=== PATIENT | female | born 1975 | race Caucasian/White ===

== ENCOUNTER → 2020-07-03 14:18 | Outpatient (BNVA) | payer MEDICARE, MEDICAID, SELFPAY | PROVIDERS: Family Provider Family Medicine; PCP Family Medicine; Visit Provider Internal Medicine Critical Care Medicine | DX: Z01.812 Encounter for preprocedural laboratory examination (principal); R91.1 Solitary pulmonary nodule | CPT/HCPCS: 87635 ==

== ENCOUNTER 2020-07-06 05:37 | Day surgery (SDC) | payer MEDICARE, MEDICAID, SELFPAY ==
[2020-07-03 13:22] VITALS: BMI 25.7
[2020-07-06] VITALS (9 sets, daily range): BP systolic 108–141; BP diastolic 74–97; PULSE 88–97; RESP 16–24; TEMP 36.1–37.5; O2SAT 93–98
[2020-07-06] MEDS: sodium chloride 0.9% 1,000 ML 30 ML IV (06:22)
--- NOTE | 2020-07-06 06:37 | W.PM.OPSUD ---
Surgery/Procedure H&P Update DATE OF PROCEDURE: July 06, 2020 DATE H&P PERFORMED: 06/28/20 H&P UPDATE INFORMATION: I have reviewed H&P completed within last 30 days, I have examined patient prior to procedure and No changes to prior documentation PREOP DIAGNOSIS: Lung cancer PLANNED PROCEDURE: Bronchoscopy with inspection of the airway, possible endobronchial biopsy, bronchoalveolar lavage, Cytobrush, endobronchial sound guided transbronchial needle aspiration of lymph nodes and control of bleeding. Operation Date: 07/06/20 07:00 Proposed Procedures p Ebus [id number] R06.02(Not Applicable) - Isauro Delgado MD s Bronchoscopy(Not Applicable) - Isauro Delgado MD
--- NOTE | 2020-07-06 06:48 | ANES.PREANE2 ---
Pre-Anesthetic Assessment Pre-Anesthetic Assessment: Height/Weight: Height 1.68 m Weight 72.121 kg Temp Pulse Resp BP Pulse Ox 99.5 F 88 18 126/74 96 07/06/20 06:08 07/06/20 06:08 07/06/20 06:08 07/06/20 06:08 07/06/20 06:08 Preop Diagnosis: Lung cancer Proposed Procedure: Operation Date: 07/06/20 07:00 Proposed Procedures p Ebus [id number] R06.02(Not Applicable) - Isauro Delgado MD s Bronchoscopy(Not Applicable) - Isauro Delgado MD Was Beta Rodriguez taken within 24 hours: N/A Last intake: Intake Last Liquid Date 07/05/20 Last Liquid Time 22:30 Last Solid Date 07/05/20 Last Solid Time 16:00 Social: Social History: Tobacco and No alcohol Exam: Pre-Anes Outpt Exam: alert, oriented x 3 and regular rate & rhythm Airway: Submandibular: WNL Cervical ROM: WNL MP: 2 Dentition: False Pulmonary: Pulmonary: COPD, Cough and SOB Comments: Lung mass CV/HEM: CV/HEM: CHF (Per patient, no pedal edema) Anesthetic Plan: ASA status: 3 Anesthesia: General Risk of > 500 ml blood loss (7ml/kg in children): No Meds/Allergies Current Medications: Current Medications Generic Name Dose Route Start Last Admin Trade Name Freq PRN Reason Stop Dose Admin Sodium Chloride 1,000 mls @ 30 ml s/hr 07/06/20 06:15 07/06/20 06:22 Sodium Chloride 0.9% IV 07/07/20 06:14 30 mls/hr .Q24H PERLA Administration PFSH Anesthesia PFSH: Medical History (Updated 07/03/20 @ 14:10 by Tara Mcgovern LPN) History of ovarian cancer Hyperlipidemia Palpitation Shortness of breath Surgical History (Updated 06/28/20 @ 14:57 by Isauro Delgado MD) S/P appendectomy S/P cholecystectomy S/P hysterectomy S/P oophorectomy S/P shoulder replacement Right Family History Other Diabetes Social History Smoking and tobacco status: current every day smoker cigarettes Years cigarettes smoked: 30 [ Other cigarette details: 1 PPD x 25 Years ] Quit status (tobacco): considering quitting Second hand smoke exposure: Yes Smoking risk assessment/counseling performed?: Yes Alcohol intake: never Counseling given: No Counseling given: No Lives independently: Yes Household members: significant other and family Marital status: / Current occupational status: disabled History of recent travel: No Current gender identity: Female Data Anesthesia Cardiac Studies: No Data to Display
[2020-07-06] MEDS: lidocaine 1% INJ 20 mL XX (07:15)
--- NOTE | 2020-07-06 07:47 | P.OP_ITS ---
Operative Report Date of procedure: July 06, 2020 Pre-op Diagnosis: Lung cancer Post-op diagnosis: same Brief History: This is a 44-year-old lady coming in for bronchoscopic evaluation for suspected lung cancer. Procedure: Name of the procedure: Bronchoscopy with inspection of the airway, bronchoalveolar lavage, endobronchial biopsies, endobronchial ultrasound-guided transbronchial needle aspiration of lymph nodes and control of bleeding. Indication: Suspected lung cancer Anesthesia: General anesthesia. Local anesthesia: The vocal cords, trachea, jaswant in the right and left mainst em bronchi were anesthetized with 1% lidocaine, 7 mL. Description of the procedure: The procedure was explained to the patient and the consent was obtained. The patient was brought to the Endo suite. The patient underwent laryngeal mask airway placement for general anesthesia. Following induction of general anesthesia, the bronchoscope was advanced through the LMA. The vocal cords were normal. The vocal cords were anesthetized with 1% lidocaine, 3 mL lidocaine was used. The upper and lower trachea appeared to be erythematous, narrow with evidence of extrinsic compression on the right side, no endotracheal lesion was seen. The jaswant was splayed. The jaswant, the right and left mainstem bronchi are anesthetized with 1% lidocaine. In a systematic manner bilateral bronchial tree was then examined. The bronchoscope was advanced into the left mainstem bronchus. The left upper lobe, lingula and left lower lobe bronchi were examined up to the third subsegmental level and no abnormalities were identified. There is no endobronchial lesion, active bleeding or mucous plug. The bronchoscope was then introduced into the right mainstem bronchus. There was distortion and narrowing and mucosal irregularity at the entrance of the right upper lobe bronchus. The bronchus intermedius appeared narrowed with mucosal abnormalities as well. The entrance to the right middle lobe bronchus and right lower lobe segmental bronchi were all narrowed. Endobronchial biopsies were obtained from the right upper lobe bronchus. Multiple samples were obtained. Bronchoalveolar lavage was obtained from the right upper lobe. The endobronchial ultrasound was introduced through the LMA. Significant mediastinal and hilar lymphadenopathy was identified with the ultrasound. Fine- needle aspirations were performed from the right paratracheal, 4R mass. Samples: 1. Bronchoalveolar lavage specimen was sent for cytology. 2. The endobronchial biopsies are sent for histopathology. 3. The transbronchial needle aspiration of the aforementioned lymph node groups were sent for histopathology. Complications: Postprocedure the patient was noted to have lower tracheal bleed. This was controlled with cold saline. At the end of the procedure there was no active bleeding.
--- NOTE | 2020-07-06 08:29 | SUR.PHASEI ---
0822 PT TO OPS PER CART PT AWAKE ALERT C/O OF HEAD ACHE , PT STATES (IT IS A CAFFIENE HEADACHE) PT OK WITH DRINKING SOME COKE FOR HEADACHE, VSS PT NOT COUGHING, AWAKE ALERT VERBALIZED APPROP HANDOFF AT BEDSIDE TO OPS NURSE.
--- NOTE | 2020-07-06 08:49 | ANE.PACU2 ---
Inpatient post-anesthesia follow up: Airway intact: Yes Vital signs: Temperature 97.5 F Pulse Rate 93 Respiratory Rate 18 Blood Pressure 119/90 Pulse Oximetry 93 Oxygen Delivery Me thod Room Air Oxygen Flow Rate Fraction of Inspir ed Oxygen Hydration adequate: Yes Nausea and vomiting: No Pain level: 1 Mental status: Baseline
--- NOTE | 2020-07-06 09:01 | SUR.PHASEII ---
PATIENT RE-EVALUATED BY DOCTOR MCKINLEY
[2020-07-12 10:49] LABS: PD-L1 (Clone 22C3) by IHC BBPL See Report
== END 2020-07-06 09:35 | disposition home or self-care (01) ==
PROVIDERS: PCP Family Medicine; Visit Provider Internal Medicine Critical Care Medicine
PROC: BB4BZZZ Ultrasonography of Pleura (ICD-10-PCS; principal; 2020-07-06 07:00)
PROC: 0BJ08ZZ Inspection of Tracheobronchial Tree, Via Natural or Artificial Opening Endoscopic (ICD-10-PCS; CPT 31622; 2020-07-06 07:00)
DX: C34.90 Malignant neoplasm of unspecified part of unspecified bronchus or lung (principal); J44.9 Chronic obstructive pulmonary disease, unspecified; I50.9 Heart failure, unspecified; Z85.43 Personal history of malignant neoplasm of ovary; E78.5 Hyperlipidemia, unspecified; F17.210 Nicotine dependence, cigarettes, uncomplicated; Z79.82 Long term (current) use of aspirin
CPT/HCPCS: 31624; 31627; 31628; 31652; 80500; 87070; 87205; 88112; 88305; 88342; 88368; 96360; 96361; J2250; J2704; J3010; J7030

== ENCOUNTER 2020-07-12 05:36 | Outpatient (RCR) | payer MEDICARE, MEDICAID, SELFPAY ==
--- NOTE | 2020-07-11 15:30 | ONC CON_ITS ---
Dr. Yanes New Patient Note Patient: Winsome Salgado Unit #: [id number]: 1975 Dicatated By: Lena Yanes M.D.Date of Visit: Jul 11, 2020 Onc MED New Patient/Consult Referring Physician: Dr. JACQUELYN MCCOLLUM M.D. History of Present Illness: Mrs Winsome Salgado, is a 44-year-old female with a history of abnormal chest x-ray which showed right middle lobe lung lesion for which she was referred to pulmonology for evaluation and she underwent CT scan of the chest on June 25, 2020 which showed extensive right upper lobe atelectasis/consolidation concerning for postobstructive pneumonia given the presence of spiculated 2.1 cm nodule within the right upper lobe. And extensive mediastinal and right hilar adenopathy worrisome for metastatic disease. Further evaluated with CT PET scan which was done on June 30, 2020 showed 2 x 1.8 cm right middle lobe nodule with SUV of 10.9, a 1.2 cm. Right hilar nodule has an SUV of 8. Other FDG positive nodules are obscured by right middle lobe infiltrate but are present in the right middle lobe. Malignant mediastinal adenopathy is present in the superior anterior mediastinum, right paratracheal, left paratracheal, subaortic, subcarinal, right paraesophageal territory. Multifocal osseous metastatic disease are present in the central sacrum, posterior element of T12. And index lesion in the central sacrum measured 1.3 cm with SUV of 7.6. In the right cervical level 4 territory, there is a 1.5 x 2.7 cm node has SUV of 11.4. An FDG positive cervical level 4 lymph node on July 06, 2020 she underwent bronchoscopy and transbronchial biopsy from right upper lobe showed non-small cell lung cancer, right endobronchial biopsy was positive for non-small cell cancer and station 4R lymph node positive for non-small cell carcinoma as per pathology he was consistent with invasive adenocarcinoma favor lung. Patient denies any history of hemoptysis, denies any dysphagia but complaining of off-and-on headaches and blurred vision which is progressive no focal weakness. Also complaining of lower back pain and right posterior lower rib pain, not being controlled with hydrocodone, denies any history of trauma to her lower back or hip or chest. Patient is also complaining of weight loss, she used to weigh 176 now down to 150 pounds because of poor appetite. Patient is a chronic smoker smoked about 1 to 2 pack a day but now cutting down. Denies any jaundice denies any night sweats denies any fever chills denies any shortness of breath or palpitation. Past Medical History: Ms. Salgado's medical history consists of history of ovarian cancer and hypertension. Past Surgical History: Ms. Nicholsons surgical/procedural history consists of appendectomy, cholecystectomy, hysterectomy/bilateral salpingectomy-oophorectomy - At age 16, had uterine cancer, and right shoulder replacement. Medications: ALPRAZolam 1 Tablet (of 0.5 mg) Oral q 12 hours PRN, Aspirin 81 1 Tablet (of 81 mg) Tablet, chewable Oral daily, Chantix 1 Tablet (of 1 mg) Oral daily, Cyclobenzaprine HCl 1 Tablet (of 10 mg) Oral q 8 hours PRN, Diclofenac Sodium 1 Tablet (of 75 mg) Tablet, enteric coated Oral b.i.d., HYDROcodone-Acetaminophen 1 Tablet (of 10-325 mg) Oral q 8 hours PRN, hydrOXYzine HCl 1 Tablet (of 25 mg) Oral q 8 hours PRN, Isosorbide Mononitrate ER 1 Tablet (of 60 mg) Tablet SR 24 HR Oral daily, Metoprolol Succinate ER 1 Tablet (of 25 mg) Tablet SR 24 HR Oral daily, Nitroglycerin (0.4 mg) Tablet, sublingual Sublingual Take as Directed, Sertraline HCl 1 Tablet (of 50 mg) Oral daily Allergies: Ibuprofen, Ketorolac Tromethamine, Levaquin, Morphine Sulfate, Nalbuphine HCl, Penicillins, Prochlorperazine Maleate, Ritalin, and SUMAtriptan Succinate. Social History: Ms. Salgado is . She is a daily smoker who has smoked 2.0 packs/day for 30 years. She has no history of drinking. She has indicated exposure to the following products: cigarettes. Family History: Ms. Salgado's mother is alive. Ms. Salgado's father at age 74: Lung Cancer. Ms. Salgado has 1 brother who is alive. She has 2 sisters: 2 alive. Review Of Symptoms: Review of Systems is not available for this patient. Vital Signs: Performed on Jul 11, 2020 11:15: 7, 2, 0.00, 0.00 sq.m, 98 %, 94 /min, 18 /min, 94/63 mm(hg), 97.2 F (LOW), and 159.8 lbs (HIGH). Performance Status: 0 - Fully active, able to carry on all predisease activities without restrictions. (ECOG) Physical Examination: ENMT - No mouth sores, no thrush, no jaundice, Respiratory - Lungs are clear to auscultation, Cardiovascular - Regular rate and rhythm of heart, Abdomen - Soft, bowel sounds present, Extremities - No visible edema or rash. Lab/Imaging: Most recent lab results are not available for this patient. Impression: Invasive adenocarcinoma per bronchoscopy done on July 06, 2020 shows right upper lobe endobronchial biopsy was positive for malignancy/non-small cell carcinoma station 4R lymph node positive for non-small cell carcinoma as per pathology histology features suggestive of invasive adenocarcinoma, favor lung CT PET scan done on June 30, 2020 showed FDG positive right middle lobe nodule, malignant satellite nodule in the medial right lung and right hilum, extensive malignant mediastinal adenopathy with extension into right and midline cervical node territories., multifocal osseous metastatic disease, in the central sacrum and posterior element of T12 History of chronic smoking, still active Weight loss due to poor appetite Plan: Discussed with patient regarding her disease status, CT PET scan finding and CT scan of chest findings , clinically, it appears patient has metastatic disease, as per pathology adenocarcinoma the lung is favored as bronchoscopy/biopsy is positive for non-small cell carcinoma involving right upper bronchus and station 4R lymph node and CT PET scan shows extensive mediastinal lymphadenopathy involving both the right and left paratracheal and even right paraesophageal lymph node territories. But no evidence of liver involvement or adrenal involvement. And other concern is, her off and on headaches and blurred vision could be due to narcotics or brain mets, at this point,we will consider MRI scan of the brain AYAKA if it shows brain mets then palliative therapy would be the goal and as, she is complaining of progressive lower back pain, somewhat controlled with hydrocodone, will consider referring her to radiation oncology for evaluation. If her MRI scan of brain come back negative, and CT PET scan findings which are somewhat unusual especially with cervical lymph node involvement especially midline cervical lymph node involvement, ? Second primary or metastasis and bone mets without involvement of liver or adrenal glands involvement, in that case , we will consider ultrasound-guided FNA of midline cervical lymph node to confirm metastasis. In the meantime we will request pathology to check PD-L1 status and molecular profiling including EGFR, ALK, ROS1, BRAF mutation and also order guardant 360 to identify targetable mutation. Patient will return to clinic after MRI scan of the brain if it shows metastatic disease, for further discussion otherwise return to clinic in 2 weeks for further discussion and planning. Signed By: Lena Yanes M.D. <<Signature on File>>
--- NOTE | 2020-07-12 10:58 | N.ONRAD NP_ITS ---
Radiation Oncology Consultation Patient Name: Winsome Salgado Date of : 1975 Date of Service: 07/12/2020 Attending Physician: Diogo Urban M.D. Winsome Salgado was seen in consultation this morning at the request of Davian Yanes M.D. for consideration of palliative radiotherapy for the management of her recently diagnosed non-small cell lung cancer. She was initially evaluated for chest pain. Chest radiography was noted to reveal a right middle lobe lung nodule. A CT scan ordered on June 25, 2020 chelated nodule with right upper lobe consolidation and bulky right hilar and mediastinal adenopathy. A PET CT (independently reviewed in [facility]) obtained on June 30, 2020 confirmed the right middle lobe nodule (SUV 10.9), hypermetabolic activity within the right hilum and mediastinum and multifocal metastatic disease in the sacrum, posterior elements of the 12th thoracic vertebral body, and FDG activity within the right cervical lymph node levels IV and . A bronchoscopy with biopsy performed on July 06, 2020 identified extrinsic compression of the right middle lobe bronchus and right lower lobe segmental bronchi. The pathology report (personally reviewed in [facility]) diagnosed and adenocarcinoma. An MRI of the brain has been requested on account of her complaint of diplopia. The patient is being evaluated for palliative radiotherapy to the pelvis due to significant pain. I discussed with Ms. Salgado the role for palliative radiotherapy. A biopsy will be requested of the sacral lesion to confirm metastatic disease if MR of the brain does not identify cerebral metastases. I will initiate extended release OxyContin for pain. I would recommend a 2-week course of radiation therapy. A CT scan will be acquired for radiotherapy planning prior to beginning treatment. The potential toxicities of pelvic radiotherapy were reviewed. The patient has verbalized understanding would like to proceed as recommended. Signed by: 07/12/2020 10:58:48 AMDr. Diogo Urban
== END 2020-07-25 23:59 | disposition home or self-care (01) ==
LOC: ONCMED 05:36
PROVIDERS: PCP Family Medicine; Visit Provider Radiology Radiation Oncology
DX: C34.11 Malignant neoplasm of upper lobe, right bronchus or lung (principal); C79.31 Secondary malignant neoplasm of brain; F17.210 Nicotine dependence, cigarettes, uncomplicated; R63.4 Abnormal weight loss; Z79.899 Other long term (current) drug therapy
CPT/HCPCS: 36415; 99205; 99215

== ENCOUNTER 2020-07-25 11:26 | Outpatient (CLI) | payer MEDICARE, MEDICAID, SELFPAY ==
--- NOTE | 2020-07-25 11:30 | MR_ITS ---
WS: [id number] MRI BRAIN WITH AND WITHOUT CONTRAST HISTORY: ADENOCARCINOMA OF Lung; blurry Vision; double VISION NEW SYMPTOM COMPARISON: None available. TECHNIQUE: Multiplanar imaging performed through the brain with MultiHance 15 ml's IV. No acute infarct. There are innumerable metastatic lesions within the brain. Majority of these lesion s range from 2-5 mm. The largest metastatic lesion in the parafalcine RIGHT occipital lobe measures 1 .5 x 1.4 cm with a large amount of surrounding edema and effacement of the sulci. This metastatic les ion extends over a length of 1.9 cm. At this time there is no midline shift but the edema does extend centrally to the midline. Metastatic lesions are identified within the RIGHT and LEFT lobes of the c erebellum measuring only 3 to 4 mm. There is also a small hemorrhagic component. No meningeal enhance ment is appreciated. There is no midline shift. No hydrocephalus. Paranasal sinuses: Mild mucoperiosteal thickening in the RIGHT maxillary sinus. No air-fluid levels. Mastoid air cells: Normal. Calvarium and scalp: Normal. MR/MR head wo/w con [id number] IMPRESSION: 1. Innumerable metastatic lesions throughout the brain involving the cerebellu m and cerebrum. 2. Largest metastatic mass is hemorrhagic measuring 1.5 x 1.4 x 1.9 cm in the RIGHT parafalcine occipital lobe. There is a large amount of surrounding edema causing effacement of the sulci but no midline shift. 3. The remaining metastatic site drain in size from 2-5 mm. 4. No ventriculomegaly.
[2020-07-25] MEDS: gadobenate dimeglumine 20 mL vial IV (12:48)
== END 2020-07-25 11:27 | disposition home or self-care (01) ==
LOC: RADSHAW 11:28
PROVIDERS: PCP Family Medicine; Visit Provider Internal Medicine Hematology & Oncology
DX: H53.2 Diplopia (principal); H53.8 Other visual disturbances; C34.90 Malignant neoplasm of unspecified part of unspecified bronchus or lung; D43.2 Neoplasm of uncertain behavior of brain, unspecified
CPT/HCPCS: 70553; A9577

== ENCOUNTER 2020-08-17 06:49 | Outpatient (RCR) | payer MEDICARE, MEDICAID, SELFPAY ==
--- NOTE | 2020-07-26 | CT_ITS ---
Radiation Therapy Planning CT images; total exam DLP: 369.54 mGy-cm MTDD
--- NOTE | 2020-07-30 15:38 | ONCRAD EPV_ITS ---
Radiation Oncology Follow-Up Note Patient Name: Winsome Salgado Date of : 1975 Date of Service: 07/30/2020 Attending Physician: Diogo Urban M.D. Winsome Salgado is a 44 year old white female recently diagnosed with non-small cell lung cancer (June 2020) and brain metastases. The patient has received 3 Gy of a prescribed 30 Morrissey with a 3-dimensional conformal radiotherapy plan utilizing a half beam block treatment technique with opposed lateral portal tinsley. Upon review of systems, she denied neurological symptoms. On physical examination, the patient weighed 158 lbs. Her temperature was 99.1 ???F with a blood pressure of 140/89 mmHg. Her pulse was 76 bpm and the respiratory rate was 20. Cranial nerves were intact. . Continue whole brain radiotherapy as planned. I will begin a taper of the Decadron and refill the OxyContin ER tablets. Signed by: Dr. Diogo Urban 07/30/2020 3:36:07 PM
--- NOTE | 2020-08-07 15:33 | ONCRAD TMN_ITS ---
Radiation Oncology Treatment Management Note Patient Name: Winsome Salgado Date of : 1975 Date of Service: 08/07/2020 Attending Physician: Diogo Urban M.D. Winsome Salgado is a 44 year old white female recently diagnosed with non-small cell lung cancer (June 2020) and brain metastases. The patient has received 21 Gy of a prescribed 30 Morrissey with a 3-dimensional conformal radiotherapy plan utilizing a half beam block treatment technique with opposed lateral portal tinsley. Upon review of systems, she denied neurological symptoms. On physical examination, the patient weighed 157 lbs. Her temperature was 98.9 ???F with a blood pressure of 119/73 mmHg. Her pulse was 75 bpm and the respiratory rate was 18. Cranial nerves were intact. There was no thrush present. Continue whole brain radiotherapy as prescribed. I will continue the Decadron taper. Signed by: Dr. Diogo Urban 08/07/2020 3:32:17 PM
[2020-08-17 09:34] LABS: Basophils # 0.1 10^3/uL (0.0-0.1); Basophils % 0.3 %; Eosinophils # 0.3 10^3/uL (0.0-0.8); Eosinophils % 1.6 %; Hematocrit 36.2 % (37.0-47.0); Hemoglobin 11.4 g/dL (11.5-15.3); Lymphocytes # 1.9 10^3/uL (0.8-4.8); Lymphocytes % 9.6 %; Mean Corpuscular HGB Conc 31.5 g/dL (30.0-36.0); Mean Corpuscular Hemoglobin 29.9 pg (28.0-34.0); Monocytes # 1.1 10^3/uL (0.2-0.9); Monocytes % 5.8 %; Neutrophils # 15.89 10^3/uL (1.8-7.7); Neutrophils % 81.9 %; Nucleated Red Blood Cells % 0 %; Platelet Count 470 10^3/cmm (130-400); Red Blood Count 3.81 10^6/uL (4.1-5.3); Red Cell Distribution Width 15.1 % (12.1-15.1); White Blood Count 19.4 10^3/uL (4.0-10.0)
[2020-08-17 09:52] LABS: Alanine Aminotransferase 44 U/L (0-33); Albumin Level 3.9 g/dL (3.5-5.2); Alkaline Phosphatase 87 IU/L (35-105); Anion Gap 14.8 (5-19); Aspartate Amino Transferase 12 U/L (0-32); Blood Urea Nitrogen 9 mg/dL (6-20); Calcium 8.5 mg/dL (8.5-10.5); Carbon Dioxide 26 mmol/L (22-29); Chloride 102 mmol/L (98-107); Globulin 2.7 g/dL (1.3-4.6); Glomerular Filtration Rate 108.1 mL/min (90-130); Glucose 135 mg/dL (65-115); Osmolality Calculated 289 mOsm/kg (285-295); Potassium 3.8 mmol/L (3.5-5.1); Sodium 139 mmol/L (136-145); Total Bilirubin 0.2 mg/dL (0.15-1.2); Total Protein 6.6 g/dL (6.6-8.7)
--- NOTE | 2020-08-19 19:21 | ONC FU_ITS ---
Dr. Yanes follow up note Patient: Winsome Salgado Unit #: [id number]: [id number] Dicatated By: Lena Yanes M.D.Date of Visit:Aug 17, 2020 Onc Med Follow-up/Prog Note History of Present Illness: Mrs Winsome Salgado, is a 44-year-old female with a history of abnormal chest x-ray which showed right middle lobe lung lesion for which she was referred to pulmonology for evaluation and she underwent CT scan of the chest on June 25, 2020 which showed extensive right upper lobe atelectasis/consolidation concerning for postobstructive pneumonia given the presence of spiculated 2.1 cm nodule within the right upper lobe. And extensive mediastinal and right hilar adenopathy worrisome for metastatic disease. Further evaluated with CT PET scan which was done on June 30, 2020 showed 2 x 1.8 cm right middle lobe nodule with SUV of 10.9, a 1.2 cm. Right hilar nodule has an SUV of 8. Other FDG positive nodules are obscured by right middle lobe infiltrate but are present in the right middle lobe. Malignant mediastinal adenopathy is present in the superior anterior mediastinum, right paratracheal, left paratracheal, subaortic, subcarinal, right paraesophageal territory. Multifocal osseous metastatic disease are present in the central sacrum, posterior element of T12. And index lesion in the central sacrum measured 1.3 cm with SUV of 7.6. In the right cervical level 4 territory, there is a 1.5 x 2.7 cm node has SUV of 11.4. An FDG positive cervical level 4 lymph node on July 06, 2020 she underwent bronchoscopy and transbronchial biopsy from right upper lobe showed non-small cell lung cancer, right endobronchial biopsy was positive for non-small cell cancer and station 4R lymph node positive for non-small cell carcinoma as per pathology he was consistent with invasive adenocarcinoma favor lung. Patient denies any history of hemoptysis, denies any dysphagia but complaining of off-and-on headaches and blurred vision which is progressive no focal weakness. Also complaining of lower back pain and right posterior lower rib pain, not being controlled with hydrocodone, denies any history of trauma to her lower back or hip or chest. Patient is also complaining of weight loss, she used to weigh 176 now down to 150 pounds because of poor appetite. Patient is a chronic smoker smoked about 1 to 2 pack a day but now cutting down. Denies any jaundice denies any night sweats denies any fever chills denies any shortness of breath or palpitation.Staging work-up including MRI scan of the brain which was done on July 25, 2020 showed innumerable metastatic lesions throughout the brain involving cerebellum and cerebrum, largest metastatic mass was hemorrhagic measuring 1.5 x 1.4 x 1.9 in the right parafalcine occipital lobe. 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 Medications: ALPRAZolam 1 Tablet (of 0.5 mg) Oral q 12 hours PRN, Aspirin 81 1 Tablet (of 81 mg) Tablet, chewable Oral daily, Chantix 1 Tablet (of 1 mg) Oral daily, Cyclobenzaprine HCl 1 Tablet (of 10 mg) Oral q 8 hours PRN, Dexamethasone 1 Tablet (of 4 mg) Oral daily, Diclofenac Sodium 1 Tablet (of 75 mg) Tablet, enteric coated Oral b.i.d., HYDROcodone-Acetaminophen 1 Tablet (of 10-325 mg) Tablet Oral q 8 hours PRN, hydrOXYzine HCl 1 Tablet (of 25 mg) Oral q 8 hours PRN, Isosorbide Mononitrate ER 1 Tablet (of 60 mg) Tablet SR 24 HR Oral daily, Metoprolol Succinate ER 1 Tablet (of 25 mg) Tablet SR 24 HR Oral daily, Nitroglycerin (0.4 mg) Tablet, sublingual Sublingual Take as Directed, Sertraline HCl 1 Tablet (of 50 mg) Oral daily Allergies: Ibuprofen, Ketorolac Tromethamine, Levaquin, Morphine Sulfate, Nalbuphine HCl, Penicillins, Prochlorperazine Maleate, Ritalin, and SUMAtriptan Succinate. Review of Systems: Review of Systems is not available for this patient. Vital Signs: Performed on Aug 17, 2020 10:36 Height - 66.00 in Weight - 165.6 lbs (HIGH) BSA - 1.85 sq.m BMI - 26.73 Temperature - 98.1 F (LOW) Pulse - 101 /min (HIGH) Respiration - 18 /min BP - 120/77 mm(hg) O2 Sat - 97 % Pain - 0 Performance Status: 1 - No physically strenuous activity, but ambulatory and able to carry out light or sedentary work (e.g. office work, light house work). (ECOG) Physical Examination: ENMT - Sinuses are nontender. No oral exudates, ulcers, masses, thrush or mucositis. Oropharynx clear. Tongue normal, Respiratory - Lungs are clear to auscultation, Cardiovascular - Regular rate and rhythm of heart, Abdomen - Soft, bowel sounds present, Extremities - No visible edema. Lab/Imaging: Most recent lab results are not available for this patient. Impression: Metastatic adenocarcinoma per bronchoscopy done on July 06, 2020 shows right upper lobe endobronchial biopsy was positive for malignancy/non-small cell carcinoma station 4R lymph node positive for non-small cell carcinoma as per pathology histology features suggestive of invasive adenocarcinoma, favor lung MRI scan of the brain done on July 25, 2020 shows innumerable metastatic lesions throughout the brain involving cerebellum and cerebrum, largest metastatic mass is hemorrhagic measuring 1.5 x 1.4 x 1.9 cm in the right parafalcine occipital lobe with a large amount of surrounding edema but no midline shift Status post whole brain radiation therapy completed on August 10, 2020 CT PET scan done on June 30, 2020 showed FDG positive right middle lobe nodule, malignant satellite nodule in the medial right lung and right hilum, extensive malignant mediastinal adenopathy with extension into right and midline cervical node territories., multifocal osseous metastatic disease, in the central sacrum and posterior element of T12 History of chronic smoking, still active Weight loss due to poor appetite Plan: .Discussed with patient regarding her disease status, now based on staging MRI scan of the brain findings, metastatic e.g. 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, may benefit from FDA approved binimetinib and, molecular profiling further confirm tumor being PD-L1 positive, TPS more than 50%, considering patient's age and extent of disease and molecular profiling, we would consider chemo immunotherapy with pembrolizumab every 3 weeks, along with weekly carboplatin/Taxol on day 1 [address] PET scan after 3 or 4 cycles.And also consider Monthly Xgeva to prevent skeletal related complication All the side effect possible benefits associated with chemoimmunotherapy including but not limited to bone marrow suppression, nausea vomiting, hair loss, peripheral neuropathy especially with Taxol, endocrinopathy especially with immunotherapy, pneumonitis, colitis, jaundice again especially with immunotherapy were mentioned, further teaching will be done by chemotherapy nurse, patient and family expressed full understanding and accepted the treatment, will obtain approval from her insurance prior to the treatment and also obtain Port-A-Cath placement, patient prefer Dr. Carter. As per the anxiety is concerned, we will try mild dose antianxiety medication. Patient return to clinic 1 week after chemo immunotherapy is initiated with CBC CMP Signed By: Lena Yanes M.D. <<Signature on File>>
== END 2020-08-24 23:59 | disposition home or self-care (01) ==
LOC: ONCMED 06:49
PROVIDERS: PCP Family Medicine; Visit Provider Internal Medicine Hematology & Oncology
DX: Z51.0 Encounter for antineoplastic radiation therapy (principal); C34.11 Malignant neoplasm of upper lobe, right bronchus or lung; C79.31 Secondary malignant neoplasm of brain; F17.210 Nicotine dependence, cigarettes, uncomplicated; R63.4 Abnormal weight loss; Z79.899 Other long term (current) drug therapy
CPT/HCPCS: 36415; 77280; 77290; 77295; 77300; 77334; 77336; 77412; 77417; 80053; 85025; 99215

== ENCOUNTER 2020-08-30 09:39 | Day surgery (SDC) | payer MEDICARE, MEDICAID, SELFPAY ==
[2020-08-29 12:20] VITALS: BMI 26.6
[2020-08-30] VITALS (8 sets, daily range): BP systolic 122–139; BP diastolic 84–92; PULSE 77–98; RESP 16–18; TEMP 36.2–36.8; O2SAT 93–99
--- NOTE | 2020-08-30 | SCC_ITS ---
Procedure Done: Port-A-Cath placement into the left subclavian vein with intraoperative fluoroscopy interpretation. 3.8 seconds of fluoroscopic guidance, for a cumulative dose of 0.48 mGy, was provided to Dr. Carter by the radiology department. C-arm images of the chest were saved for the patient's permanent record. FANI
[2020-08-30] MEDS: sodium chloride 0.9% 1,000 ML 30 ML IV (11:28)
[2020-08-30] MEDS: fentaNYL 50 mcg/mL INJ 2mL IVP (11:43)
--- NOTE | 2020-08-30 11:46 | W.PM.OPSUD ---
Surgery/Procedure H&P Update DATE OF PROCEDURE: August 30, 2020 DATE H&P PERFORMED: 08/28/20 H&P UPDATE INFORMATION: No changes to prior documentation PREOP DIAGNOSIS: Lung cancer PLANNED PROCEDURE: Operation Date: 08/30/20 11:25 Proposed Procedures p Portacath Placement [id number] c34.91(Not Applicable) - Kirit Carter MD
[2020-08-30] MEDS: midazolam 1 mg/mL INJ 2 mL 2 MG IVP ×2 (11:54→13:47)
--- NOTE | 2020-08-30 12:28 | ANES.PREANE2 ---
Pre-Anesthetic Assessment Pre-Anesthetic Assessment: Height/Weight: Height 1.68 m Weight 74.843 kg Temp Pulse Resp BP Pulse Ox 98.2 F 98 18 139/84 95 08/30/20 11:27 08/30/20 11:27 08/30/20 11:43 08/30/20 11:27 08/30/20 11:43 Preop Diagnosis: Lung cancer Proposed Procedure: Operation Date: 08/30/20 11:25 Proposed Procedures p Portacath Placement [id number] c34.91(Not Applicable) - Kirit Carter MD Was Beta Rodriguez taken within 24 hours: Yes Was Clonidine taken within 24 hours: N/A Last intake: Intake Last Liquid Date 08/29/20 Last Liquid Time 19:30 Last Solid Date 08/29/20 Last Solid Time 19:30 Social: Social History: Tobacco and No alcohol Exam: Pre-Anes Outpt Exam: alert, oriented x 3 and regular rate & rhythm Airway: Submandibular: WNL Cervical ROM: WNL MP: 2 Dentition: False Pulmonary: Pulmonary: COPD and SOB CV/HEM: CV/HEM: CAD and HTN Anesthetic Plan: ASA status: 3 Anesthesia: MAC Risk of > 500 ml blood loss (7ml/kg in children): No Meds/Allergies Current Medications: Current Medications Generic Name Dose Route Start Last Admin Trade Name Freq PRN Reason Stop Dose Admin Fentanyl 50 mcg 08/30/20 10:08/30/20 11:43 Fentanyl 50 Mcg/ Ml Inj 2ml IVP 50 mcg Q10M PRN Administration Preop Pain Sodium Chloride 1,000 mls @ 30 ml s/hr 08/30/20 10:15 08/30/20 11:28 Sodium Chloride 0.9% IV 08/31/20 10:14 30 mls/hr .Q24H PERLA Administration Midazolam HCl 2 mg 08/30/20 10:08/30/20 11:54 Midazolam 1 Mg/M l Inj 2 Ml IVP 2 mg Q5M PRN Administration Preop Anxiety PFSH Anesthesia PFSH: Medical History (Updated 07/03/20 @ 14:10 by Tara Mcgovern LPN) History of ovarian cancer Hyperlipidemia Palpitation Shortness of breath Surgical History (Updated 06/28/20 @ 14:57 by Isauro Delgado MD) S/P appendectomy S/P cholecystectomy S/P hysterectomy S/P oophorectomy S/P shoulder replacement Right Family History Other Diabetes Social History Smoking and tobacco status: current every day smoker cigarettes Years cigarettes smoked: 30 [ Other cigarette details: 1 PPD x 25 Years ] Quit status (tobacco): considering quitting Second hand smoke exposure: Yes Smoking risk assessment/counseling performed?: Yes Alcohol intake: never Counseling given: No Counseling given: No Lives independently: Yes Household members: significant other and family Marital status: / Current occupational status: disabled History of recent travel: No Current gender identity: Female Data Anesthesia Cardiac Studies: No Data to Display
--- NOTE | 2020-08-30 14:37 | SC_ITS ---
WS: [id number] C-arm fluoroscopy view for port insertion, 08/30/2020 Clinical Data: surgery Comparison: PA chest, 06/07/2020. Findings: A left subclavian port has been inserted. The distal tip ends in the superior vena cava. SC/C-arm FL for CVA [id number] Impression: Insertion left subclavian port.
[2020-08-30] MEDS: lidocaine 1% INJ 20 mL IM (14:52)
[2020-08-30] MEDS: heparin, porcine 1,000 unit/mL INJ 10 mL 10000 UNIT IRRIGATION (14:55)
--- NOTE | 2020-08-30 15:03 | P.OP_ITS ---
Operative Report Date of procedure: August 30, 2020 Pre-op Diagnosis: Metastatic right non-small cell (probable adenocarcinoma) lung cancer. Post-op diagnosis: same Procedure Done: Port-A-Cath placement into the left subclavian vein with intrao perative fluoroscopy interpretation. Pathology: none sent Surgeon: Kirit Carter Anesthesia: General Estimated blood loss (mL): 5 Complications: None. Condition: stable Disposition: PACU Procedure: The patient was brought to the Operating Room and was placed in a supine position on the operating room table. A monitored anesthetic was induced, but this was eventually converted to general anesthesia by means of a laryngeal mask airway due to continued restlessness by the patient. The shoulders were extended by means of a posterior shoulder roll. The anterior surface of the chest and neck were prepped and draped in a sterile fashion. 1% lidocaine was used to anesthetize a small area underneath the left clavicle. The subclavian vein was accessed on the first pass with a needle and syringe as evidenced by the return of dark nonpulsatile blood. The J-wire was passed down the needle and the needle was removed. The C-arm was positioned and showed the wire extending down the vena cava. A site just inferiorly on the chest wall was anesthetized using a combination of 1% lidocaine and 0.5% bupivacaine with 1:200,000 parts of epinephrine. A transverse incision was made and an inferior pocket was created in the subcutaneous layer using cautery in preparation for port placement. The Port-A-Cath tubing was passed from the incision through the subcutaneous layer to the exit point of the J-wire. The tubing was attached to the port and was cut to an appropriate length. The introducer and sheath were passed over the J-wire, and the introducer and J-wire were removed. The Port-A-Cath tubing was passed down the sheath, which was torn away. The C-arm was positioned and showed good placement of the Port-A-Cath tubing tip in the superior vena cava. The port aspirated easily and flushed well with hep flush solution. The port was sewn in place with some interrupted sutures of 3-0 PDS. The transverse incision was closed at the dermis using a single inverted suture of 3-0 Vicryl and the skin was approximated using a running subcuticular suture of 4-0 Vicryl. The small incision under the clavicle at the previous insertion site of the J wire was closed using a single inverted suture of 4-0 Vicryl. Benzoin and Steri-Strips were placed over the incisions and a sterile bandage followed. The patient was taken to the recovery area in stable condition p ostoperatively. INTRAOPERATIVE FLUOROSCOPY FINDINGS: Intraoperative fluoroscopic images of a Port-A-Cath placement were reviewed. An initial image reveals a J-wire entering the left subclavian vein and extending down the vena cava. Subsequent images reveal a Port-A-Cath on that side of the chest with its tubing tip in good location in the superior vena cava. No obvious pneumothorax is identified.
[2020-08-30] MEDS: HYDROcodone-acetaminophen 5-325 mg Tablet 1 TAB PO (15:35)
--- NOTE | 2020-08-30 17:18 | ANE.PACU2 ---
Inpatient post-anesthesia follow up: Airway intact: Yes Vital signs: Temperature 97.5 F Pulse Rate 79 Respiratory Rate 18 Blood Pressure 135/91 Pulse Oximetry 94 Oxygen Delivery Me thod Room Air Oxygen Flow Rate 6 Fraction of Inspir ed Oxygen Hydration adequate: Yes Nausea and vomiting: No Pain level: 1 Mental status: Baseline
== END 2020-08-30 15:56 | disposition home or self-care (01) ==
PROVIDERS: PCP Family Medicine; Visit Provider Surgery
PROC: (CPT 36561; principal; 2020-08-30 11:25)
DX: C34.91 Malignant neoplasm of unspecified part of right bronchus or lung (principal); J44.9 Chronic obstructive pulmonary disease, unspecified; I25.10 Atherosclerotic heart disease of native coronary artery without angina pectoris; I10 Essential (primary) hypertension; Z85.43 Personal history of malignant neoplasm of ovary; E78.5 Hyperlipidemia, unspecified; F17.210 Nicotine dependence, cigarettes, uncomplicated
CPT/HCPCS: 36561; 12345; 76000; 77001; 96374; 96375; C1788; J0690; J1644; J1885; J2250; J2405; J2704; J3010; J3490; J7030

== ENCOUNTER 2020-09-12 05:35 | Outpatient (RCR) | payer MEDICARE, MEDICAID, SELFPAY ==
[2020-09-04 09:28] LABS: Basophils % 0.1 %; Hematocrit 40.9 % (37.0-47.0); Hemoglobin 13.1 g/dL (11.5-15.3); Lymphocytes # 0.8 10^3/uL (0.8-4.8); Lymphocytes % 3.9 %; Mean Corpuscular Hemoglobin 29.7 pg (28.0-34.0); Mean Corpuscular Volume 92.7 fL (81-99); Mean Platelet Volume 7.9 fL (7.4-10.4); Monocytes # 0.1 10^3/uL (0.2-0.9); Monocytes % 0.6 %; Neutrophils # 18.86 10^3/uL (1.8-7.7); Nucleated Red Blood Cells % 0 %; Platelet Count 564 10^3/cmm (130-400); Red Blood Count 4.41 10^6/uL (4.1-5.3); Red Cell Distribution Width 15.4 % (12.1-15.1); White Blood Count 20.1 10^3/uL (4.0-10.0)
[2020-09-04 09:48] LABS: Alanine Aminotransferase 17 U/L (0-33); Albumin Level 4.7 g/dL (3.5-5.2); Alkaline Phosphatase 64 IU/L (35-105); Anion Gap 18.2 (5-19); Aspartate Amino Transferase 10 U/L (0-32); Blood Urea Nitrogen 17 mg/dL (6-20); Calcium 9.2 mg/dL (8.5-10.5); Carbon Dioxide 25 mmol/L (22-29); Chloride 95 mmol/L (98-107); Globulin 2.5 g/dL (1.3-4.6); Glomerular Filtration Rate 90.5 mL/min (90-130); Glucose 259 mg/dL (65-115); Osmolality Calculated 288 mOsm/kg (285-295); Potassium 4.2 mmol/L (3.5-5.1); Sodium 134 mmol/L (136-145); Total Bilirubin 0.3 mg/dL (0.15-1.2); Total Protein 7.2 g/dL (6.6-8.7)
[2020-09-04] MEDS: famotidine 20 mg/2 mL INJ IVP (10:52)
[2020-09-04] MEDS: sodium chloride 0.9% 250 ML 75 ML IV (10:52)
[2020-09-04] MEDS: palonosetron 0.25 mg/5 mL SDV IV (10:54)
[2020-09-04] MEDS: diphenhydrAMINE 50 mg/mL SDV 1mL 25 MG IV (11:11)
[2020-09-04] MEDS: sodium chloride 0.9% (100 ml) 100 ML 400 ML (11:11)
[2020-09-04] MEDS: fosaprepitant 150 MG in sodium chloride 0.9% 150 ML 300 MG IV (11:33)
--- NOTE | 2020-09-12 09:56 | ONC FU_ITS ---
Dr. Yanes follow up note Patient: Winsome Salgado Unit #: [id number]: [id number] Dicatated By: Lena Yanes M.D.Date of Visit:September 12, 2020 Onc Med Follow-up/Prog Note History of Present Illness: Mrs Winsome Salgado, is a 44-year-old female with a history of abnormal chest x-ray which showed right middle lobe lung lesion for which she was referred to pulmonology for evaluation and she underwent CT scan of the chest on June 25, 2020 which showed extensive right upper lobe atelectasis/consolidation concerning for postobstructive pneumonia given the presence of spiculated 2.1 cm nodule within the right upper lobe. And extensive mediastinal and right hilar adenopathy worrisome for metastatic disease. Further evaluated with CT PET scan which was done on June 30, 2020 showed 2 x 1.8 cm right middle lobe nodule with SUV of 10.9, a 1.2 cm. Right hilar nodule has an SUV of 8. Other FDG positive nodules are obscured by right middle lobe infiltrate but are present in the right middle lobe. Malignant mediastinal adenopathy is present in the superior anterior mediastinum, right paratracheal, left paratracheal, subaortic, subcarinal, right paraesophageal territory. Multifocal osseous metastatic disease are present in the central sacrum, posterior element of T12. And index lesion in the central sacrum measured 1.3 cm with SUV of 7.6. In the right cervical level 4 territory, there is a 1.5 x 2.7 cm node has SUV of 11.4. An FDG positive cervical level 4 lymph node on July 06, 2020 she underwent bronchoscopy and transbronchial biopsy from right upper lobe showed non-small cell lung cancer, right endobronchial biopsy was positive for non-small cell cancer and station 4R lymph node positive for non-small cell carcinoma as per pathology he was consistent with invasive adenocarcinoma favor lung. Patient denies any history of hemoptysis, denies any dysphagia but complaining of off-and-on headaches and blurred vision which is progressive no focal weakness. Also complaining of lower back pain and right posterior lower rib pain, not being controlled with hydrocodone, denies any history of trauma to her lower back or hip or chest. Patient is also complaining of weight loss, she used to weigh 176 now down to 150 pounds because of poor appetite. Patient is a chronic smoker smoked about 1 to 2 pack a day but now cutting down. Denies any jaundice denies any night sweats denies any fever chills denies any shortness of breath or palpitation.Staging work-up including MRI scan of the brain which was done on July 25, 2020 showed innumerable metastatic lesions throughout the brain involving cerebellum and cerebrum, largest metastatic mass was hemorrhagic measuring 1.5 x 1.4 x 1.9 in the right parafalcine occipital lobe. 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, where FDA approved binimetinib can be used as her tumor showed no other molecular targetable mutations including showed low TMB and but PD-L1 was more than 50% Started on chemo immunotherapy with Keytruda/carboplatin/Taxol on September 04, 2020 Came for follow-up, denies any specific complaints, no fever chills, no nausea or vomiting, no diarrhea constipation, as per patient on Thursday she went to [facility] with the right chest wall pain radiating to her back and she was told she may have touch of infection and was given course of Z-Gurwinder, patient denies any fever or chills denies any yellowish phlegm denies any trauma to her right chest., As per patient Dr. Skelton her PMD gave her long-acting OxyContin with that her mid back pain is under control. Denies any lower extremity weakness or urine or stool incontinence. Medications: ALPRAZolam 1 Tablet (of 0.5 mg) Oral q 12 hours PRN, Aspirin 81 1 Tablet (of 81 mg) Tablet, chewable Oral daily, Chantix 1 Tablet (of 1 mg) Oral daily, Cyclobenzaprine HCl 1 Tablet (of 10 mg) Oral q 8 hours PRN, Dexamethasone 1 Tablet (of 4 mg) Oral daily, Diclofenac Sodium 1 Tablet (of 75 mg) Tablet, enteric coated Oral b.i.d., HYDROcodone-Acetaminophen 1 Tablet (of 10-325 mg) Tablet Oral q 8 hours PRN, hydrOXYzine HCl 1 Tablet (of 25 mg) Oral q 8 hours PRN, Isosorbide Mononitrate ER 1 Tablet (of 60 mg) Tablet SR 24 HR Oral daily, Metoprolol Succinate ER 1 Tablet (of 25 mg) Tablet SR 24 HR Oral daily, Nitroglycerin (0.4 mg) Tablet, sublingual Sublingual Take as Directed, Sertraline HCl 1 Tablet (of 50 mg) Oral daily Allergies: Ibuprofen, Ketorolac Tromethamine, Levaquin, Morphine Sulfate, Nalbuphine HCl, Penicillins, Prochlorperazine Maleate, Ritalin, and SUMAtriptan Succinate. Review of Systems: Review of Systems is not available for this patient. Vital Signs: Performed on September 12, 2020 09:31 Height - 66.00 in Weight - 174.0 lbs (HIGH) BSA - 1.89 sq.m BMI - 28.08 Temperature - 98.3 F (LOW) Pulse - 110 /min (HIGH) Respiration - 18 /min BP - 121/73 mm(hg) O2 Sat - 95 % (LOW) Pain - 0 Performance Status: 1 - No physically strenuous activity, but ambulatory and able to carry out light or sedentary work (e.g. office work, light house work). (ECOG) Physical Examination: ENMT - No mouth sores, no thrush, no jaundice, Respiratory - Poor air entry otherwise clear, Cardiovascular - Regular rate and rhythm of heart, Abdomen - Soft, bowel sounds present, Extremities - No visible edema. Lab/Imaging: Test performed on September 09, 2020 01:18 Sodium 133 mmol/L Potassium 3.7 mmol/L Chloride 97 mmol/L CO2 23 mmol/L Anion Gap 13 BUN 12 mg/dL Creatinine 0.69 mg/dL Cr Clearance (Est) 122.09 mL/min Glucose 167 mg/dL Calcium 9.1 mg/dL Protein, Total 6.9 g/dL Albumin 3.8 g/dL Bilirubin, Total 0.4 mg/dL ALT (SGPT) 20 Units/L AST (SGOT) 17 Units/L Alkaline Phosphatase 77 IU/L WBC 19.7 10^3/uL RBC 4.26 10^6/uL HGB 12.8 g/dL HCT 39.5 % MCV 92.7 fl MCH 30.0 pg MCHC 32.4 g/dL RDW 15.5 % Platelet Count 376 10^3/uL MPV 8.3 fl Neutrophils 17.68 10^3/uL Lymphocytes 1.01 10^3/uL Monocytes 0.68 10^3/uL Eosinophils 0.10 10^3/uL Basophils 0.06 10^3/uL Neutrophil % 90 % Lymphocyte % 5 % Monocyte % 3 % Eosinophil % 1 % Basophils % 0 % Test performed on September 04, 2020 09:09 eGFR 90.5 mL/min Osmolality - Calculated 288 mOsm/kg Globulin 2.5 g/dL NRBC % 0 % Impression: Metastatic adenocarcinoma per bronchoscopy done on July 06, 2020 shows right upper lobe endobronchial biopsy was positive for malignancy/non-small cell carcinoma station 4R lymph node positive for non-small cell carcinoma as per pathology histology features suggestive of invasive adenocarcinoma, favor lung MRI scan of the brain done on July 25, 2020 shows innumerable metastatic lesions throughout the brain involving cerebellum and cerebrum, largest metastatic mass is hemorrhagic measuring 1.5 x 1.4 x 1.9 cm in the right parafalcine occipital lobe with a large amount of surrounding edema but no midline shift Status post whole brain radiation therapy completed on August 10, 2020 CT PET scan done on June 30, 2020 showed FDG positive right middle lobe nodule, malignant satellite nodule in the medial right lung and right hilum, extensive malignant mediastinal adenopathy with extension into right and midline cervical node territories., multifocal osseous metastatic disease, in the central sacrum and posterior element of T12 Started on Keytruda every 3 weeks and weekly carboplatin/Taxol on day 1 and 8 on September 04, 2020 History of chronic smoking, still active Weight loss due to poor appetite Plan: Discussed with patient regarding her labs white blood count 19.7 hemoglobin 12.8 hematocrit 39.5 platelets 376,000 CMP within normal limit except glucose 167 Clinically, patient is doing well with no new signs symptom, tolerated systemic therapy with Keytruda/weekly carboplatin/Taxol well, will proceed with day 8 with weekly carboplatin/Taxol and then she will return to clinic in 2 weeks with CBC CMP As for the leukocytosis concern probably due to steroids. Patient is on oral antibiotics, denies any signs symptoms testing of infection, no fever chills, no productive cough, no dysuria., Patient was advised in case she has any symptoms like fever or yellowish phlegm or worsening of right chest wall pain she need to call us. Signed By: Lena Yanes M.D. <<Signature on File>>
[2020-09-12] MEDS: sodium chloride 0.9% (100 ml) 100 ML 500 ML (10:43)
[2020-09-12] MEDS: sodium chloride 0.9% 250 ML 75 ML IV (10:43)
[2020-09-12] MEDS: diphenhydrAMINE 50 mg/mL SDV 1mL 25 MG IVP (10:43)
[2020-09-12] MEDS: famotidine 20 mg/2 mL INJ IVP (11:03)
[2020-09-12] MEDS: palonosetron 0.25 mg/5 mL SDV IVP (11:05)
[2020-09-12] MEDS: fosaprepitant 150 MG in sodium chloride 0.9% 150 ML 300 MG IV (11:15)
[2020-09-12] MEDS: acetaminophen 325 mg Tablet 650 MG PO (11:50)
[2020-09-12] MEDS: pegfilgrastim 6 mg/0.6 mL Kit (onpro) SUBCUT (13:55)
== END 2020-09-24 23:59 | disposition home or self-care (01) ==
LOC: ONCMED 05:35
PROVIDERS: PCP Family Medicine; Visit Provider Internal Medicine Hematology & Oncology
DX: Z51.12 Encounter for antineoplastic immunotherapy (principal); Z51.11 Encounter for antineoplastic chemotherapy; C34.11 Malignant neoplasm of upper lobe, right bronchus or lung; C79.31 Secondary malignant neoplasm of brain; F17.210 Nicotine dependence, cigarettes, uncomplicated; R63.4 Abnormal weight loss; I10 Essential (primary) hypertension; Z79.899 Other long term (current) drug therapy
CPT/HCPCS: 80053; 85025; 96367; 96372; 96375; 96377; 96413; 96417; 99215; J1100; J1200; J1453; J2469; J2505; J3490; J7030; J7040; J7050; J9045; J9267; J9271

== ENCOUNTER 2020-10-24 05:52 | Outpatient (RCR) | payer MEDICARE, MEDICAID, SELFPAY ==
[2020-09-26] MEDS: HYDROcodone-acetaminophen 10-325 mg Tablet 1 TAB PO (11:05)
[2020-09-26] MEDS: palonosetron 0.25 mg/5 mL SDV IVP (11:18)
[2020-09-26] MEDS: sodium chloride 0.9% 250 ML 75 ML IV (11:19)
[2020-09-26] MEDS: famotidine 20 mg/2 mL INJ IVP (11:19)
[2020-09-26] MEDS: diphenhydrAMINE 50 mg/mL SDV 1mL 25 MG IVP (11:20)
[2020-09-26] MEDS: fosaprepitant 150 MG in sodium chloride 0.9% 150 ML 300 MG IV (11:39)
[2020-09-26] MEDS: denosumab 120 mg SDV SUBCUT (14:50)
--- NOTE | 2020-09-26 17:34 | ONC FU_ITS ---
Dr. Yanes follow up note Patient: Winsome Salgado Unit #: [id number]: 1975 Dicatated By: Lena Yanes M.D.Date of Visit:Sep 26, 2020 Onc Med Follow-up/Prog Note History of Present Illness: Mrs Winsome Salgado, is a 44-year-old female with a history of abnormal chest x-ray which showed right middle lobe lung lesion for which she was referred to pulmonology for evaluation and she underwent CT scan of the chest on June 25, 2020 which showed extensive right upper lobe atelectasis/consolidation concerning for postobstructive pneumonia given the presence of spiculated 2.1 cm nodule within the right upper lobe. And extensive mediastinal and right hilar adenopathy worrisome for metastatic disease. Further evaluated with CT PET scan which was done on June 30, 2020 showed 2 x 1.8 cm right middle lobe nodule with SUV of 10.9, a 1.2 cm. Right hilar nodule has an SUV of 8. Other FDG positive nodules are obscured by right middle lobe infiltrate but are present in the right middle lobe. Malignant mediastinal adenopathy is present in the superior anterior mediastinum, right paratracheal, left paratracheal, subaortic, subcarinal, right paraesophageal territory. Multifocal osseous metastatic disease are present in the central sacrum, posterior element of T12. And index lesion in the central sacrum measured 1.3 cm with SUV of 7.6. In the right cervical level 4 territory, there is a 1.5 x 2.7 cm node has SUV of 11.4. An FDG positive cervical level 4 lymph node on July 06, 2020 she underwent bronchoscopy and transbronchial biopsy from right upper lobe showed non-small cell lung cancer, right endobronchial biopsy was positive for non-small cell cancer and station 4R lymph node positive for non-small cell carcinoma as per pathology he was consistent with invasive adenocarcinoma favor lung. Patient denies any history of hemoptysis, denies any dysphagia but complaining of off-and-on headaches and blurred vision which is progressive no focal weakness. Also complaining of lower back pain and right posterior lower rib pain, not being controlled with hydrocodone, denies any history of trauma to her lower back or hip or chest. Patient is also complaining of weight loss, she used to weigh 176 now down to 150 pounds because of poor appetite. Patient is a chronic smoker smoked about 1 to 2 pack a day but now cutting down. Denies any jaundice denies any night sweats denies any fever chills denies any shortness of breath or palpitation.Staging work-up including MRI scan of the brain which was done on July 25, 2020 showed innumerable metastatic lesions throughout the brain involving cerebellum and cerebrum, largest metastatic mass was hemorrhagic measuring 1.5 x 1.4 x 1.9 in the right parafalcine occipital lobe. 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 Denies any trauma to her back, denies any fever chills denies any nausea or vomiting denies any peripheral numbness, denies any mouth sores, denies any jaundice denies any shortness of breath denies any skin rash, tolerating Keytruda/carboplatin/Taxol well otherwise Medications: ALPRAZolam 1 Tablet (of 0.5 mg) Oral q 12 hours PRN, Aspirin 81 1 Tablet (of 81 mg) Tablet, chewable Oral daily, Chantix 1 Tablet (of 1 mg) Oral daily, Cyclobenzaprine HCl 1 Tablet (of 10 mg) Oral q 8 hours PRN, Dexamethasone 1 Tablet (of 4 mg) Oral daily, Diclofenac Sodium 1 Tablet (of 75 mg) Tablet, enteric coated Oral b.i.d., HYDROcodone-Acetaminophen 1 Tablet (of 10-325 mg) Tablet Oral q 8 hours PRN, hydrOXYzine HCl 1 Tablet (of 25 mg) Oral q 8 hours PRN, Isosorbide Mononitrate ER 1 Tablet (of 60 mg) Tablet SR 24 HR Oral daily, Metoprolol Succinate ER 1 Tablet (of 25 mg) Tablet SR 24 HR Oral daily, Nitroglycerin (0.4 mg) Tablet, sublingual Sublingual Take as Directed, OxyCONTIN (10 mg) Tablet ER 12 HR Abuse-Deterrent Oral b.i.d., Sertraline HCl 1 Tablet (of 50 mg) Oral daily Allergies: Ibuprofen, Ketorolac Tromethamine, Levaquin, Morphine Sulfate, Nalbuphine HCl, Penicillins, Prochlorperazine Maleate, Ritalin, and SUMAtriptan Succinate. Review of Systems: Review of Systems is not available for this patient. Vital Signs: Performed on Sep 26, 2020 09:08 Height - 66.00 in Weight - 161.8 lbs (LOW) BSA - 1.83 sq.m BMI - 26.12 Temperature - 97.4 F (LOW) Pulse - 109 /min (HIGH) Respiration - 18 /min BP - 109/71 mm(hg) O2 Sat - 94 % (LOW) Pain - 10 Fatigue - 0 Performance Status: 1 - No physically strenuous activity, but ambulatory and able to carry out light or sedentary work (e.g. office work, light house work). (ECOG) Physical Examination: ENMT - No mouth sores, no thrush, no jaundice, Respiratory - Lungs are clear to auscultation, Cardiovascular - Regular rate and rhythm of heart, Abdomen - Soft, bowel sounds present, Extremities - No visible edema or rash. Lab/Imaging: Test performed on Sep 26, 2020 09:40 Creatinine 0.95 mg/dL Cr Clearance (Est) 88.68 mL/min Test performed on Sep 25, 2020 14:42 Glucose 160 mg/dL BUN 6 mg/dL Sodium 137 mmol/L Potassium 3.6 mmol/L Chloride 98 mmol/L CO2 25 mmol/L Calcium 9.8 mg/dL Protein, Total 7.4 g/dL Albumin 3.5 g/dL Bilirubin, Total 0.2 mg/dL Alkaline Phosphatase 122 IU/L AST (SGOT) 13 IU/L ALT (SGPT) 13 IU/L WBC 16.1 10^9/L RBC 4.00 10^12/L HGB 11.7 g/dL HCT 35.8 % MCV 89.5 fl MCH 29.3 pg MCHC 32.7 g/dL RDW 15.3 % Platelet Count 769 10^9/L MPV 7.8 fL Neutrophils (Gran) 11.71 10^9/L Lymphocytes 2.56 10^9/L Monocytes 1.38 10^9/L Eosinophils 0.10 10^9/L Basophils 0.10 10^9/L Manual Lymphocytes 16 % Manual Monocytes 9 % Manual Eosinophils 1 % Manual Basophils 1 % Test performed on September 09, 2020 01:18 Anion Gap 13 Neutrophil % 90 % Lymphocyte % 5 % Monocyte % 3 % Eosinophil % 1 % Basophils % 0 % Test performed on September 04, 2020 09:09 eGFR 90.5 mL/min Osmolality - Calculated 288 mOsm/kg Globulin 2.5 g/dL NRBC % 0 % Impression: Metastatic adenocarcinoma per bronchoscopy done on July 06, 2020 shows right upper lobe endobronchial biopsy was positive for malignancy/non-small cell carcinoma station 4R lymph node positive for non-small cell carcinoma as per pathology histology features suggestive of invasive adenocarcinoma, favor lung MRI scan of the brain done on July 25, 2020 shows innumerable metastatic lesions throughout the brain involving cerebellum and cerebrum, largest metastatic mass is hemorrhagic measuring 1.5 x 1.4 x 1.9 cm in the right parafalcine occipital lobe with a large amount of surrounding edema but no midline shift Status post whole brain radiation therapy completed on August 10, 2020 CT PET scan done on June 30, 2020 showed FDG positive right middle lobe nodule, malignant satellite nodule in the medial right lung and right hilum, extensive malignant mediastinal adenopathy with extension into right and midline cervical node territories., multifocal osseous metastatic disease, in the central sacrum and posterior element of T12 Started on Keytruda every 3 weeks and weekly carboplatin/Taxol on day 1 and 8 on September 04, 2020 History of chronic smoking, still active Weight loss due to poor appetite Plan: Discussed with patient regarding her labs white blood count 16.1 hemoglobin 11.7 hematocrit 35.8 platelets 769,000 CMP within normal limits Clinically, patient is in mild to moderate distress due to persistent mid/lower back pain due to T12 vertebral involvement, as per patient current pain medication with narcotics is barely making it tolerable, we will proceed with her next cycle of chemotherapy with Keytruda/carboplatin/Taxol today and then we will skip day 8 chemotherapy with carboplatin/Taxol and we will refer her to radiation oncology for evaluation for radiotherapy to T12 vertebra, and patient return to clinic in 3 weeks, with CBC CMP, hopefully by that time she will complete her palliative radiation therapy and then will resume her systemic therapy. In the meantime patient was advised to continue take pain medication as recommended and to call us in case there is a worsening of her mid back pain or any other symptoms. Signed By: Lena Yanes M.D. <<Signature on File>>
--- NOTE | 2020-10-01 | CT_ITS ---
Radiation Therapy Planning CT images; total exam DLP: 253.09 mGy-cm MTDD
--- NOTE | 2020-10-01 13:33 | N.ONRAD NP_ITS ---
Radiation Oncology Consultation Patient Name: Winsome Salgado Date of : 1975 Date of Service: 10/01/2020 Attending Physician: Diogo Urban M.D. Winsome Salgado was seen in consultation this morning at the request of Davian Yanes M.D. for consideration of palliative radiotherapy to the thoracic spine for the management of her recently diagnosed non-small cell lung cancer. She was initially evaluated for chest pain. Chest radiography was noted to reveal a right middle lobe lung nodule. A CT scan ordered on June 25, 2020 chelated nodule with right upper lobe consolidation and bulky right hilar and mediastinal adenopathy. A PET CT (independently reviewed in [facility]) obtained on June 30, 2020 confirmed the right middle lobe nodule (SUV 10.9), hypermetabolic activity within the right hilum and mediastinum and multifocal metastatic disease in the sacrum, posterior elements of the 12th thoracic vertebral body, and FDG activity within the right cervical lymph node levels IV and . A bronchoscopy with biopsy performed on July 06, 2020 identified extrinsic compression of the right middle lobe bronchus and right lower lobe segmental bronchi. The pathology report (personally reviewed in [facility]) diagnosed and adenocarcinoma. An MRI of the brain completed on July 25, 2020 revealed innumerable metastatic lesions. She completed cranial radiotherapy on August 10, 2020 (30 Gy in 10 fractions). The patient was has received two cycles of Keytruda, carboplatin, and Taxol between the dates of September 04, 2020 through September 26, 2020. Her back pain has worsened despite her current narcotic regimen. She was evaluated for palliative radiotherapy for the 12th thoracic vertebral body lesion. I discussed with Ms. Salgado the role for palliative radiotherapy. I would recommend a 2-week course of radiation therapy. A CT scan will be acquired for radiotherapy planning prior beginning treatment to delineate the clinical target volume. I would recommend a 2-week course of radiation therapy. A CT scan will be acquired for radiotherapy planning prior to beginning treatment. The potential toxicities of pelvic radiotherapy were reviewed. The patient has verbalized understanding would like to proceed as recommended. The patient???s medical treatment plan was discussed with Lena Yanes M.D. Signed by: Dr. Diogo Urban 10/01/2020 1:31:40 PM
--- NOTE | 2020-10-09 14:05 | ONCRAD TMN_ITS ---
Radiation Oncology Treatment Management Note Patient Name: Winsome Salgado Date of : 1975 Date of Service: 10/09/2020 Attending Physician: Diogo Urban M.D. Winsome Salgado is a 44 year old white female diagnosed recently with metastatic non-small cell lung cancer and a painful 12th thoracic vertebral body lesion. The patient has received 12 Gy of a prescribed 30 Morrissey to T12 with a 3-dimensional conformal radiotherapy plan utilizing wedge pair treatment tinsley. Upon review of systems, she denied any neurological complaints. On physical examination, the patient weighed 155 lbs. His temperature was 98.4???F with a blood pressure of 107/75 mmHg. Her pulse was 99 bpm and the respiratory rate was 20 breaths per minute. No erythema was present within the skin. Continue palliative radiotherapy as prescribed. Signed by: Dr. Diogo Urban 10/09/2020 2:04:20 PM
--- NOTE | 2020-10-16 13:42 | ONCRAD TMN_ITS ---
Radiation Oncology Treatment Management Note Patient Name: Winsome Salgado Date of : 1975 Date of Service: 10/16/2020 Attending Physician: Diogo Urban M.D. Winsome Salgado is a 44 year old white female diagnosed recently with metastatic non-small cell lung cancer and a painful 12th thoracic vertebral body lesion. The patient has received 27 Gy of a prescribed 30 Morrissey to T12 with a 3-dimensional conformal radiotherapy plan utilizing wedge pair treatment tinsley. Upon review of systems, she described worsening left hip pain and nausea. On physical examination, the patient weighed 153 lbs. Her temperature was 98.2???F with a blood pressure of 99/66 mmHg. Her pulse was 93 bpm and the respiratory rate was 18 breaths per minute. No erythema was present within the skin. Continue palliative radiotherapy as prescribed. I will order a hip radiograph on account of her complaint of pain and will prescribe Phenergan for nausea (failed Zofran ODT and Compazine according to the patient). Signed by: Dr. Diogo Urban 10/16/2020 1:41:20 PM
--- NOTE | 2020-10-16 15:07 | XRR_ITS ---
PROCEDURE INFORMATION: Exam: XR Left Hip Exam date and time: 10/16/2020 3:07 PM Age: 45 years old Clinical indication: Left hip; Patient HX: Lt hip pain down leg; Additional info: Left leg weakness TECHNIQUE: Imaging protocol: XR Left hip. Views: 2 or 3 views hip with pelvis when performed. COMPARISON: CTA Thoracic/Abd/Pelvis Aorta 12/15/2016 11:09 PM FINDINGS: Bones/joints: Unremarkable. No acute fracture. Soft tissues: Unremarkable. XR/XR hip LT 2-3V wo/w pel* [id number] IMPRESSION: No acute findings.
[2020-10-24] MEDS: alteplase 1 mg/mL SDV 2 mL 2 MG IV (13:20)
[2020-10-24 14:47] LABS: Basophils # 0.1 10^3/uL (0.0-0.1); Basophils % 0.5 %; Eosinophils # 0.2 10^3/uL (0.0-0.8); Eosinophils % 1.3 %; Hematocrit 36.3 % (37.0-47.0); Hemoglobin 11.4 g/dL (11.5-15.3); Lymphocytes # 1.7 10^3/uL (0.8-4.8); Lymphocytes % 12.7 %; Mean Corpuscular HGB Conc 31.4 g/dL (30.0-36.0); Mean Corpuscular Hemoglobin 28.2 pg (28.0-34.0); Mean Corpuscular Volume 89.9 fL (81-99); Monocytes # 0.9 10^3/uL (0.2-0.9); Neutrophils # 10.18 10^3/uL (1.8-7.7); Neutrophils % 77.9 %; Nucleated Red Blood Cells % 0 %; Platelet Count 725 10^3/cmm (130-400); Red Blood Count 4.04 10^6/uL (4.1-5.3); Red Cell Distribution Width 16.1 % (12.1-15.1); White Blood Count 13.1 10^3/uL (4.0-10.0)
[2020-10-24 15:17] LABS: Alanine Aminotransferase < 5 U/L (0-33); Albumin Level 3.6 g/dL (3.5-5.2); Alkaline Phosphatase 112 IU/L (35-105); Anion Gap 14.8 (5-19); Aspartate Amino Transferase 10 U/L (0-32); Blood Urea Nitrogen 6 mg/dL (6-20); Calcium 8.8 mg/dL (8.5-10.5); Carbon Dioxide 26 mmol/L (22-29); Chloride 100 mmol/L (98-107); Globulin 3.5 g/dL (1.3-4.6); Glomerular Filtration Rate 171.8 mL/min (90-130); Glucose 87 mg/dL (65-115); Osmolality Calculated 281 mOsm/kg (285-295); Potassium 3.8 mmol/L (3.5-5.1); Sodium 137 mmol/L (136-145); Total Bilirubin 0.2 mg/dL (0.15-1.2); Total Protein 7.1 g/dL (6.6-8.7)
== END 2020-10-24 23:59 | disposition home or self-care (01) ==
LOC: ONCMED 05:52
PROVIDERS: Absent Provider Radiology Radiation Oncology; PCP Family Medicine; Visit Provider Internal Medicine Hematology & Oncology
DX: Z51.0 Encounter for antineoplastic radiation therapy (principal); Z51.12 Encounter for antineoplastic immunotherapy; Z51.11 Encounter for antineoplastic chemotherapy; C79.51 Secondary malignant neoplasm of bone; C79.31 Secondary malignant neoplasm of brain; C34.11 Malignant neoplasm of upper lobe, right bronchus or lung; M25.552 Pain in left hip
CPT/HCPCS: 36415; 36593; 73502; 77290; 77295; 77300; 77334; 77336; 77387; 77412; 80053; 85025; 96367; 96372; 96374; 96375; 96413; 96417; 99215; J0897; J1100; J1200; J1453; J2469; J2997; J3490; J7030; J7040; J7050; J9045; J9267; J9271

== ENCOUNTER → 2020-11-02 10:12 | Outpatient (BNVA) | payer MEDICARE, MEDICAID, SELFPAY | PROVIDERS: PCP Family Medicine; Visit Provider Internal Medicine Hematology & Oncology | DX: C34.90 Malignant neoplasm of unspecified part of unspecified bronchus or lung (principal); Z20.822 Contact with and (suspected) exposure to COVID-19 | CPT/HCPCS: 80053; 85025 ==

== ENCOUNTER → 2020-11-12 10:06 | Outpatient (BNVA) | payer MEDICARE, MEDICAID, SELFPAY | PROVIDERS: PCP Family Medicine; Visit Provider Internal Medicine Medical Oncology | DX: C34.90 Malignant neoplasm of unspecified part of unspecified bronchus or lung (principal) | CPT/HCPCS: 80053; 85025 ==

== ENCOUNTER 2020-11-13 05:40 | Outpatient (RCR) | payer MEDICARE, MEDICAID, SELFPAY ==
--- NOTE | 2020-10-26 12:04 | ONC FU_ITS ---
Dr. Yanes follow up note Patient: Winsome Salgado Unit #: [id number]: 1975 Dicatated By: Lena Yanes M.D.Date of Visit:Oct 25, 2020 Onc Med Follow-up/Prog Note History of Present Illness: Mrs Winsome Salgado, is a 45-year-old female with a history of abnormal chest x-ray which showed right middle lobe lung lesion for which she was referred to pulmonology for evaluation and she underwent CT scan of the chest on June 25, 2020 which showed extensive right upper lobe atelectasis/consolidation concerning for postobstructive pneumonia given the presence of spiculated 2.1 cm nodule within the right upper lobe. And extensive mediastinal and right hilar adenopathy worrisome for metastatic disease. Further evaluated with CT PET scan which was done on June 30, 2020 showed 2 x 1.8 cm right middle lobe nodule with SUV of 10.9, a 1.2 cm. Right hilar nodule has an SUV of 8. Other FDG positive nodules are obscured by right middle lobe infiltrate but are present in the right middle lobe. Malignant mediastinal adenopathy is present in the superior anterior mediastinum, right paratracheal, left paratracheal, subaortic, subcarinal, right paraesophageal territory. Multifocal osseous metastatic disease are present in the central sacrum, posterior element of T12. And index lesion in the central sacrum measured 1.3 cm with SUV of 7.6. In the right cervical level 4 territory, there is a 1.5 x 2.7 cm node has SUV of 11.4. An FDG positive cervical level 4 lymph node on July 06, 2020 she underwent bronchoscopy and transbronchial biopsy from right upper lobe showed non-small cell lung cancer, right endobronchial biopsy was positive for non-small cell cancer and station 4R lymph node positive for non-small cell carcinoma as per pathology he was consistent with invasive adenocarcinoma favor lung. Patient denies any history of hemoptysis, denies any dysphagia but complaining of off-and-on headaches and blurred vision which is progressive no focal weakness. Also complaining of lower back pain and right posterior lower rib pain, not being controlled with hydrocodone, denies any history of trauma to her lower back or hip or chest. Patient is also complaining of weight loss, she used to weigh 176 now down to 150 pounds because of poor appetite. Patient is a chronic smoker smoked about 1 to 2 pack a day but now cutting down. Denies any jaundice denies any night sweats denies any fever chills denies any shortness of breath or palpitation.Staging work-up including MRI scan of the brain which was done on July 25, 2020 showed innumerable metastatic lesions throughout the brain involving cerebellum and cerebrum, largest metastatic mass was hemorrhagic measuring 1.5 x 1.4 x 1.9 in the right parafalcine occipital lobe. 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, where FDA approved binimetinib can be used as her tumor showed no other molecular targetable mutations including showed low TMB and but PD-L1 was more than 50% Started on chemo immunotherapy with Keytruda/carboplatin/Taxol on September 04, 2020 For progressive and persistent mid back pain, patient was referred to radiation oncology and palliative radiation therapy was given to T12 which she completed on October 17, 2020, during radiation therapy her systemic therapy was put on hold to minimize toxicity Came for follow-up, denies any specific complaint, however mid back pain is much better since radiation therapy which she completed on October 17, 2020, none nausea or vomiting, no diarrhea constipation, no fever chills, patient was supposed to resume her chemoimmunotherapy but patient is taking 1 week off with the family. Otherwise no nausea or vomiting no diarrhea constipation, no mouth sores, no jaundice, no fever or chills. Medications: ALPRAZolam 1 Tablet (of 0.5 mg) Oral q 12 hours PRN, Aspirin 81 1 Tablet (of 81 mg) Tablet, chewable Oral daily, Chantix 1 Tablet (of 1 mg) Oral daily, Cyclobenzaprine HCl 1 Tablet (of 10 mg) Oral q 8 hours PRN, Dexamethasone 1 Tablet (of 4 mg) Oral daily, Diclofenac Sodium 1 Tablet (of 75 mg) Tablet, enteric coated Oral b.i.d., HYDROcodone-Acetaminophen 1 Tablet (of 10-325 mg) Tablet Oral q 8 hours PRN, hydrOXYzine HCl 1 Tablet (of 25 mg) Oral q 8 hours PRN, Isosorbide Mononitrate ER 1 Tablet (of 60 mg) Tablet SR 24 HR Oral daily, Metoprolol Succinate ER 1 Tablet (of 25 mg) Tablet SR 24 HR Oral daily, Nitroglycerin (0.4 mg) Tablet, sublingual Sublingual Take as Directed, OxyCONTIN (10 mg) Tablet ER 12 HR Abuse-Deterrent Oral b.i.d., Sertraline HCl 1 Tablet (of 50 mg) Oral daily Allergies: Ibuprofen, Ketorolac Tromethamine, Levaquin, Morphine Sulfate, Nalbuphine HCl, Penicillins, Prochlorperazine Maleate, Ritalin, and SUMAtriptan Succinate. Review of Systems: Review of Systems is not available for this patient. Vital Signs: Performed on Oct 25, 2020 08:15 Height - 66.00 in Weight - 150.2 lbs (LOW) BSA - 1.77 sq.m BMI - 24.24 Temperature - 98.6 F Pulse - 94 /min Respiration - 18 /min BP - 103/66 mm(hg) O2 Sat - 97 % Pain - 4 Fatigue - 9 Performance Status: 1 - No physically strenuous activity, but ambulatory and able to carry out light or sedentary work (e.g. office work, light house work). (ECOG) Physical Examination: ENMT - No mouth sores, no thrush, no jaundice, Respiratory - Lungs are clear to auscultation, Cardiovascular - Regular rate and rhythm of heart, Abdomen - Soft, bowel sounds present, Extremities - No visible edema or rash. Lab/Imaging: Test performed on Sep 26, 2020 09:40 Creatinine 0.95 mg/dL Cr Clearance (Est) 88.68 mL/min Test performed on Sep 25, 2020 14:42 Glucose 160 mg/dL BUN 6 mg/dL Sodium 137 mmol/L Potassium 3.6 mmol/L Chloride 98 mmol/L CO2 25 mmol/L Calcium 9.8 mg/dL Protein, Total 7.4 g/dL Albumin 3.5 g/dL Bilirubin, Total 0.2 mg/dL Alkaline Phosphatase 122 IU/L AST (SGOT) 13 IU/L ALT (SGPT) 13 IU/L WBC 16.1 10^9/L RBC 4.00 10^12/L HGB 11.7 g/dL HCT 35.8 % MCV 89.5 fl MCH 29.3 pg MCHC 32.7 g/dL RDW 15.3 % Platelet Count 769 10^9/L MPV 7.8 fL Neutrophils (Gran) 11.71 10^9/L Lymphocytes 2.56 10^9/L Monocytes 1.38 10^9/L Eosinophils 0.10 10^9/L Basophils 0.10 10^9/L Manual Lymphocytes 16 % Manual Monocytes 9 % Manual Eosinophils 1 % Manual Basophils 1 % Test performed on September 09, 2020 01:18 Anion Gap 13 Neutrophil % 90 % Lymphocyte % 5 % Monocyte % 3 % Eosinophil % 1 % Basophils % 0 % Test performed on September 04, 2020 09:09 eGFR 90.5 mL/min Osmolality - Calculated 288 mOsm/kg Globulin 2.5 g/dL NRBC % 0 % Impression: Metastatic adenocarcinoma per bronchoscopy done on July 06, 2020 shows right upper lobe endobronchial biopsy was positive for malignancy/non-small cell carcinoma station 4R lymph node positive for non-small cell carcinoma as per pathology histology features suggestive of invasive adenocarcinoma, favor lung MRI scan of the brain done on July 25, 2020 shows innumerable metastatic lesions throughout the brain involving cerebellum and cerebrum, largest metastatic mass is hemorrhagic measuring 1.5 x 1.4 x 1.9 cm in the right parafalcine occipital lobe with a large amount of surrounding edema but no midline shift Status post whole brain radiation therapy completed on August 10, 2020 CT PET scan done on June 30, 2020 showed FDG positive right middle lobe nodule, malignant satellite nodule in the medial right lung and right hilum, extensive malignant mediastinal adenopathy with extension into right and midline cervical node territories., multifocal osseous metastatic disease, in the central sacrum and posterior element of T12 Started on Keytruda every 3 weeks and weekly carboplatin/Taxol on day 1 and 8 on September 04, 2020 History of chronic smoking, still active Weight loss due to poor appetite Plan: Discussed with patient regarding her labs white blood count 13.1 hemoglobin 11.4 hematocrit 26.3 platelets 725,000 CMP within normal limits Clinically, patient is doing reasonably well, recently completed palliative radiation therapy to T12 vertebra on October 17, 2020, tolerated well, with that, as per patient pain has improved significantly., Patient is taking time off with family over 28 October so she will return to clinic in 1 week to resume her chemoimmunotherapy with Keytruda/carboplatin/Taxol. Signed By: Lena Yanes M.D. <<Signature on File>>
[2020-11-06] MEDS: palonosetron 0.25 mg/5 mL SDV IVP (09:30)
[2020-11-06] MEDS: sodium chloride 0.9% 250 ML 75 ML IV (09:30)
[2020-11-06] MEDS: famotidine 20 mg/2 mL INJ IVP (09:31)
[2020-11-06] MEDS: diphenhydrAMINE 50 mg/mL SDV 1mL 25 MG IVP (09:32)
[2020-11-06] MEDS: fosaprepitant 150 MG in sodium chloride 0.9% 150 ML 300 MG IV (09:49)
[2020-11-13] MEDS: sodium chloride 0.9% 250 ML 75 ML IV (10:42)
[2020-11-13] MEDS: famotidine 20 mg/2 mL INJ IVP (10:43)
[2020-11-13] MEDS: diphenhydrAMINE 50 mg/mL SDV 1mL 25 MG IVP (10:44)
[2020-11-13] MEDS: palonosetron 0.25 mg/5 mL SDV IVP (10:45)
[2020-11-13] MEDS: fosaprepitant 150 MG in sodium chloride 0.9% 150 ML 300 MG IV (11:27)
--- NOTE | 2020-11-13 12:58 | ONC FU_ITS ---
Dr. Yanes follow up note Patient: Winsome Salgado Unit #: [id number]: 1975 Dicatated By: Lena Yanes M.D.Date of Visit:Nov 13, 2020 Onc Med Follow-up/Prog Note History of Present Illness: Mrs Winsome Salgado, is a 45-year-old female with a history of abnormal chest x-ray which showed right middle lobe lung lesion for which she was referred to pulmonology for evaluation and she underwent CT scan of the chest on June 25, 2020 which showed extensive right upper lobe atelectasis/consolidation concerning for postobstructive pneumonia given the presence of spiculated 2.1 cm nodule within the right upper lobe. And extensive mediastinal and right hilar adenopathy worrisome for metastatic disease. Further evaluated with CT PET scan which was done on June 30, 2020 showed 2 x 1.8 cm right middle lobe nodule with SUV of 10.9, a 1.2 cm. Right hilar nodule has an SUV of 8. Other FDG positive nodules are obscured by right middle lobe infiltrate but are present in the right middle lobe. Malignant mediastinal adenopathy is present in the superior anterior mediastinum, right paratracheal, left paratracheal, subaortic, subcarinal, right paraesophageal territory. Multifocal osseous metastatic disease are present in the central sacrum, posterior element of T12. And index lesion in the central sacrum measured 1.3 cm with SUV of 7.6. In the right cervical level 4 territory, there is a 1.5 x 2.7 cm node has SUV of 11.4. An FDG positive cervical level 4 lymph node on July 06, 2020 she underwent bronchoscopy and transbronchial biopsy from right upper lobe showed non-small cell lung cancer, right endobronchial biopsy was positive for non-small cell cancer and station 4R lymph node positive for non-small cell carcinoma as per pathology he was consistent with invasive adenocarcinoma favor lung. Patient denies any history of hemoptysis, denies any dysphagia but complaining of off-and-on headaches and blurred vision which is progressive no focal weakness. Also complaining of lower back pain and right posterior lower rib pain, not being controlled with hydrocodone, denies any history of trauma to her lower back or hip or chest. Patient is also complaining of weight loss, she used to weigh 176 now down to 150 pounds because of poor appetite. Patient is a chronic smoker smoked about 1 to 2 pack a day but now cutting down. Denies any jaundice denies any night sweats denies any fever chills denies any shortness of breath or palpitation.Staging work-up including MRI scan of the brain which was done on July 25, 2020 showed innumerable metastatic lesions throughout the brain involving cerebellum and cerebrum, largest metastatic mass was hemorrhagic measuring 1.5 x 1.4 x 1.9 in the right parafalcine occipital lobe. 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, where FDA approved binimetinib can be used as her tumor showed no other molecular targetable mutations including showed low TMB and but PD-L1 was more than 50% Started on chemo immunotherapy with Keytruda/carboplatin/Taxol on September 04, 2020 For progressive and persistent mid back pain, patient was referred to radiation oncology and palliative radiation therapy was given to T12 which she completed on October 17, 2020, during radiation therapy her systemic therapy was put on hold to minimize toxicity Came for follow-up, denies any specific complaint except off and on indigestion heartburn and nausea and occasionally vomiting but no headaches blurred vision or double vision, no focal weakness, no fever chills, no abdominal pain, no diarrhea or constipation, no fever chills, Still smoking about pack a day Medications: ALPRAZolam 1 Tablet (of 0.5 mg) Oral q 12 hours PRN, Aspirin 81 1 Tablet (of 81 mg) Tablet, chewable Oral daily, Chantix 1 Tablet (of 1 mg) Oral daily, Cyclobenzaprine HCl 1 Tablet (of 10 mg) Oral q 8 hours PRN, Dexamethasone 1 Tablet (of 4 mg) Oral daily, Diclofenac Sodium 1 Tablet (of 75 mg) Tablet, enteric coated Oral b.i.d., HYDROcodone-Acetaminophen 1 Tablet (of 10-325 mg) Tablet Oral q 8 hours PRN, hydrOXYzine HCl 1 Tablet (of 25 mg) Oral q 8 hours PRN, Isosorbide Mononitrate ER 1 Tablet (of 60 mg) Tablet SR 24 HR Oral daily, Metoprolol Succinate ER 1 Tablet (of 25 mg) Tablet SR 24 HR Oral daily, Nitroglycerin (0.4 mg) Tablet, sublingual Sublingual Take as Directed, OxyCONTIN (10 mg) Tablet ER 12 HR Abuse-Deterrent Oral b.i.d., Sertraline HCl 1 Tablet (of 50 mg) Oral daily Allergies: Ibuprofen, Ketorolac Tromethamine, Levaquin, Morphine Sulfate, Nalbuphine HCl, Penicillins, Prochlorperazine Maleate, Ritalin, and SUMAtriptan Succinate. Review of Systems: Review of Systems is not available for this patient. Vital Signs: Performed on Nov 13, 2020 09:51 Height - 66.00 in Weight - 144.2 lbs (LOW) BSA - 1.74 sq.m BMI - 23.27 Temperature - 98.2 F (LOW) Pulse - 109 /min (HIGH) Respiration - 20 /min BP - 107/73 mm(hg) O2 Sat - 97 % Pain - 4 Fatigue - 10 Performance Status: 0 - Fully active, able to carry on all predisease activities without restrictions. (ECOG) Physical Examination: ENMT - No mouth sores, no thrush, no jaundice, Respiratory - Lungs are clear to auscultation, Cardiovascular - Regular rate and rhythm of heart, Abdomen - Soft, bowel sounds present, Extremities - No visible edema. Lab/Imaging: Test performed on Nov 12, 2020 10:06 Sodium 135 mmol/L Potassium 4.7 mmol/L Chloride 97 mmol/L CO2 23 mmol/L Anion Gap 19.7 BUN 4 mg/dL Creatinine 0.5 mg/dL Cr Clearance (Est) 145.1700 mL/min eGFR 132.8 mL/min Glucose 138 mg/dL Osmolality - Calculated 279 mOsm/kg Calcium 8.5 mg/dL Protein, Total 6.3 g/dL Albumin 3.6 g/dL Globulin 2.7 g/dL Bilirubin, Total 0.2 mg/dL ALT (SGPT) 13 Units/L AST (SGOT) 15 Units/L Alkaline Phosphatase 109 IU/L WBC 11.3 10^3/uL RBC 4.31 10^6/uL HGB 12.0 g/dL HCT 39.2 % MCV 91.0 fl MCH 27.8 pg MCHC 30.6 g/dL RDW 17.0 % Platelet Count 577 10^3/uL MPV 8.7 fl Neutrophils 8.83 10^3/uL Lymphocytes 1.4 10^3/uL Monocytes 0.7 10^3/uL Eosinophils 0.2 10^3/uL Basophils 0.1 10^3/uL Neutrophil % 78.1 % Lymphocyte % 12.6 % Monocyte % 6.0 % Eosinophil % 1.4 % Basophils % 0.8 % NRBC 0.0 /100 WBC NRBC % 0 % Test performed on Sep 25, 2020 14:42 Manual Lymphocytes 16 % Manual Monocytes 9 % Manual Eosinophils 1 % Manual Basophils 1 % Impression: Metastatic adenocarcinoma per bronchoscopy done on July 06, 2020 shows right upper lobe endobronchial biopsy was positive for malignancy/non-small cell carcinoma station 4R lymph node positive for non-small cell carcinoma as per pathology histology features suggestive of invasive adenocarcinoma, favor lung MRI scan of the brain done on July 25, 2020 shows innumerable metastatic lesions throughout the brain involving cerebellum and cerebrum, largest metastatic mass is hemorrhagic measuring 1.5 x 1.4 x 1.9 cm in the right parafalcine occipital lobe with a large amount of surrounding edema but no midline shift Status post whole brain radiation therapy completed on August 10, 2020 CT PET scan done on June 30, 2020 showed FDG positive right middle lobe nodule, malignant satellite nodule in the medial right lung and right hilum, extensive malignant mediastinal adenopathy with extension into right and midline cervical node territories., multifocal osseous metastatic disease, in the central sacrum and posterior element of T12 Started on Keytruda every 3 weeks and weekly carboplatin/Taxol on day 1 and 8 on September 04, 2020 History of chronic smoking, still active Weight loss due to poor appetite Plan: Discussed with patient regarding her labs white blood count 11.3 hemoglobin 12 hematocrit 39.2 platelets 577,000 CMP within normal limit except glucose 138 Clinically, patient doing well with no new signs symptom suggestive of disease progression, will proceed with day 8 carboplatin/Taxol and monthly Xgeva today and then she will return to clinic in 2 weeks with CBC CMP and follow-up next cycle of chemotherapy with Keytruda/carboplatin/Taxol. Her mild nausea and vomiting is concerned, patient was advised to avoid spicy foods and quit smoking, will try Prevacid 30 mg every morning and also consider antianxiety medication for mild nausea as well as anxiety. Patient was advised in case there is a worsening of symptoms she will call us otherwise back in 2 weeks Signed By: Lena Yanes M.D. <<Signature on File>>
[2020-11-13] MEDS: pegfilgrastim 6 mg/0.6 mL Kit (onpro) SUBCUT (14:00)
[2020-11-13] MEDS: denosumab 120 mg SDV SUBCUT (14:00)
== END 2020-11-24 23:59 | disposition home or self-care (01) ==
LOC: ONCMED 05:40
PROVIDERS: Absent Provider Radiology Radiation Oncology; PCP Family Medicine; Visit Provider Internal Medicine Hematology & Oncology
DX: Z51.11 Encounter for antineoplastic chemotherapy (principal); C34.11 Malignant neoplasm of upper lobe, right bronchus or lung; C79.31 Secondary malignant neoplasm of brain; C79.51 Secondary malignant neoplasm of bone; F17.210 Nicotine dependence, cigarettes, uncomplicated; R63.4 Abnormal weight loss; Z79.899 Other long term (current) drug therapy
CPT/HCPCS: 96367; 96372; 96375; 96377; 96413; 96417; 99214; 99215; J0897; J1100; J1200; J1453; J2469; J2505; J3490; J7030; J7040; J7050; J9045; J9267; J9271

== ENCOUNTER → 2020-11-26 09:38 | Outpatient (BNVA) | payer MEDICARE, MEDICAID, SELFPAY | PROVIDERS: PCP Family Medicine; Visit Provider Internal Medicine Hematology & Oncology | DX: C34.90 Malignant neoplasm of unspecified part of unspecified bronchus or lung (principal) | CPT/HCPCS: 80053; 85025 ==

== ENCOUNTER → 2020-12-04 08:52 | Outpatient (BNVA) | payer MEDICARE, MEDICAID, SELFPAY | PROVIDERS: PCP Family Medicine; Visit Provider Internal Medicine Hematology & Oncology | DX: C34.90 Malignant neoplasm of unspecified part of unspecified bronchus or lung (principal) | CPT/HCPCS: 80053; 85025 ==

== ENCOUNTER 2020-12-11 09:30 | Outpatient (RCR) | payer MEDICARE, MEDICAID, SELFPAY ==
[2020-11-27] MEDS: sodium chloride 0.9% 250 ML 75 ML IV (10:49)
[2020-11-27] MEDS: diphenhydrAMINE 50 mg/mL SDV 1mL 25 MG IV (11:16)
[2020-11-27] MEDS: famotidine 20 mg/2 mL INJ IVP (11:24)
[2020-11-27] MEDS: fosaprepitant 150 MG in sodium chloride 0.9% 150 ML 300 MG IV (11:27)
[2020-11-27] MEDS: palonosetron 0.25 mg/5 mL SDV IV (11:52)
--- NOTE | 2020-11-27 15:00 | ONC FU_ITS ---
Dr. Yanes follow up note Patient: Winsome Salgado Unit #: [id number]: 1975 Dicatated By: Lena Yanes M.D.Date of Visit:Nov 27, 2020 Onc Med Follow-up/Prog Note History of Present Illness: Mrs Winsome Salgado, is a 45-year-old female with a history of abnormal chest x-ray which showed right middle lobe lung lesion for which she was referred to pulmonology for evaluation and she underwent CT scan of the chest on June 25, 2020 which showed extensive right upper lobe atelectasis/consolidation concerning for postobstructive pneumonia given the presence of spiculated 2.1 cm nodule within the right upper lobe. And extensive mediastinal and right hilar adenopathy worrisome for metastatic disease. Further evaluated with CT PET scan which was done on June 30, 2020 showed 2 x 1.8 cm right middle lobe nodule with SUV of 10.9, a 1.2 cm. Right hilar nodule has an SUV of 8. Other FDG positive nodules are obscured by right middle lobe infiltrate but are present in the right middle lobe. Malignant mediastinal adenopathy is present in the superior anterior mediastinum, right paratracheal, left paratracheal, subaortic, subcarinal, right paraesophageal territory. Multifocal osseous metastatic disease are present in the central sacrum, posterior element of T12. And index lesion in the central sacrum measured 1.3 cm with SUV of 7.6. In the right cervical level 4 territory, there is a 1.5 x 2.7 cm node has SUV of 11.4. An FDG positive cervical level 4 lymph node on July 06, 2020 she underwent bronchoscopy and transbronchial biopsy from right upper lobe showed non-small cell lung cancer, right endobronchial biopsy was positive for non-small cell cancer and station 4R lymph node positive for non-small cell carcinoma as per pathology he was consistent with invasive adenocarcinoma favor lung. Patient denies any history of hemoptysis, denies any dysphagia but complaining of off-and-on headaches and blurred vision which is progressive no focal weakness. Also complaining of lower back pain and right posterior lower rib pain, not being controlled with hydrocodone, denies any history of trauma to her lower back or hip or chest. Patient is also complaining of weight loss, she used to weigh 176 now down to 150 pounds because of poor appetite. Patient is a chronic smoker smoked about 1 to 2 pack a day but now cutting down. Denies any jaundice denies any night sweats denies any fever chills denies any shortness of breath or palpitation.Staging work-up including MRI scan of the brain which was done on July 25, 2020 showed innumerable metastatic lesions throughout the brain involving cerebellum and cerebrum, largest metastatic mass was hemorrhagic measuring 1.5 x 1.4 x 1.9 in the right parafalcine occipital lobe. 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 Keytruda/carboplatin/Taxol was restarted on November 06, 2020 Came for follow-up, denies any specific complaints, no fever chills, no nausea or vomiting, no diarrhea constipation, no melena or hematochezia, no hemoptysis hematemesis, no headaches, tolerating chemoimmunotherapy well otherwise, patient had Covid vaccination done yesterday without any problem Medications: ALPRAZolam 1 Tablet (of 0.5 mg) Oral q 12 hours PRN, Aspirin 81 1 Tablet (of 81 mg) Tablet, chewable Oral daily, Cyclobenzaprine HCl 1 Tablet (of 10 mg) Oral q 8 hours PRN, Dexamethasone 1 Tablet (of 4 mg) Oral daily, Diclofenac Sodium 1 Tablet (of 75 mg) Tablet, enteric coated Oral b.i.d., HYDROcodone-Acetaminophen 1 Tablet (of 10-325 mg) Tablet Oral q 8 hours PRN, hydrOXYzine HCl 1 Tablet (of 25 mg) Oral q 8 hours PRN, Isosorbide Mononitrate ER 1 Tablet (of 60 mg) Tablet SR 24 HR Oral daily, Metoprolol Succinate ER 1 Tablet (of 25 mg) Tablet SR 24 HR Oral daily, Nitroglycerin (0.4 mg) Tablet, sublingual Sublingual Take as Directed, OxyCONTIN (10 mg) Tablet ER 12 HR Abuse-Deterrent Oral b.i.d., Sertraline HCl 1 Tablet (of 50 mg) Oral daily Allergies: Ibuprofen, Ketorolac Tromethamine, Levaquin, Morphine Sulfate, Nalbuphine HCl, Penicillins, Prochlorperazine Maleate, Ritalin, and SUMAtriptan Succinate. Review of Systems: Review of Systems is not available for this patient. Vital Signs: Performed on Nov 27, 2020 09:20 Height - 66.00 in Weight - 145.0 lbs (HIGH) BSA - 1.74 sq.m BMI - 23.40 Temperature - 97.1 F (LOW) Pulse - 110 /min (HIGH) Respiration - 18 /min BP - 115/72 mm(hg) O2 Sat - 97 % Pain - 0 Performance Status: 0 - Fully active, able to carry on all predisease activities without restrictions. (ECOG) Physical Examination: ENMT - No mouth sores, no thrush, no jaundice, Respiratory - Lungs are clear to auscultation, Cardiovascular - Regular rate and rhythm of heart, Abdomen - Soft, bowel sounds present, Extremities - No visible edema. Lab/Imaging: Test performed on Nov 27, 2020 09:43 Creatinine 0.4 mg/dL Cr Clearance (Est) 181.46 mL/min Test performed on Nov 26, 2020 09:38 Sodium 135 mmol/L Potassium 4.8 mmol/L Chloride 97 mmol/L CO2 20 mmol/L Anion Gap 22.8 BUN 5 mg/dL eGFR 171.8 mL/min Glucose 115 mg/dL Osmolality - Calculated 278 mOsm/kg Calcium 8.8 mg/dL Protein, Total 6.2 g/dL Albumin 3.6 g/dL Globulin 2.6 g/dL Bilirubin, Total 0.2 mg/dL ALT (SGPT) 10 Units/L AST (SGOT) 14 Units/L Alkaline Phosphatase 159 IU/L WBC 13.1 10^3/uL RBC 4.16 10^6/uL HGB 11.8 g/dL HCT 38.6 % MCV 92.8 fl MCH 28.4 pg MCHC 30.6 g/dL RDW 20.1 % Platelet Count 450 10^3/uL MPV 8.8 fl Neutrophils 10.05 10^3/uL Lymphocytes 1.9 10^3/uL Monocytes 0.8 10^3/uL Eosinophils 0.0 10^3/uL Basophils 0.1 10^3/uL Neutrophil % 76.7 % Lymphocyte % 14.9 % Monocyte % 6.1 % Eosinophil % 0.3 % Basophils % 0.9 % NRBC 0.0 /100 WBC NRBC % 0 % Test performed on Sep 25, 2020 14:42 Manual Lymphocytes 16 % Manual Monocytes 9 % Manual Eosinophils 1 % Manual Basophils 1 % Impression: Metastatic adenocarcinoma per bronchoscopy done on July 06, 2020 shows right upper lobe endobronchial biopsy was positive for malignancy/non-small cell carcinoma station 4R lymph node positive for non-small cell carcinoma as per pathology histology features suggestive of invasive adenocarcinoma, favor lung MRI scan of the brain done on July 25, 2020 shows innumerable metastatic lesions throughout the brain involving cerebellum and cerebrum, largest metastatic mass is hemorrhagic measuring 1.5 x 1.4 x 1.9 cm in the right parafalcine occipital lobe with a large amount of surrounding edema but no midline shift Status post whole brain radiation therapy completed on August 10, 2020 CT PET scan done on June 30, 2020 showed FDG positive right middle lobe nodule, malignant satellite nodule in the medial right lung and right hilum, extensive malignant mediastinal adenopathy with extension into right and midline cervical node territories., multifocal osseous metastatic disease, in the central sacrum and posterior element of T12 Started on Keytruda every 3 weeks and weekly carboplatin/Taxol on day 1 and 8 on September 04, 2020 History of chronic smoking, still active Weight loss due to poor appetite Plan: Discussed with patient regarding her labs white blood count 13.1 hemoglobin 11.8 hematocrit 38.6 platelets 450,000 CMP within normal limits Clinically, patient doing well with no new signs symptom suggestive of disease progression, will proceed with cycle number 4-day 1 with Keytruda/carboplatin/Taxol today then she return to clinic in 1 week with CBC CMP and if reasonable for day 8 chemo with weekly carboplatin/Taxol. Patient is still smoking actively, she was advised to quit smoking and was offered any assistance she may need, patient requested for nicotine patches, will give her prescription Signed By: Lena Yanes M.D. <<Signature on File>>
[2020-12-05] MEDS: famotidine 20 mg/2 mL INJ IVP (10:16)
[2020-12-05] MEDS: diphenhydrAMINE 50 mg/mL SDV 1mL 25 MG IV (10:17)
[2020-12-05] MEDS: palonosetron 0.25 mg/5 mL SDV IV (10:19)
[2020-12-05] MEDS: sodium chloride 0.9% 250 ML 75 ML IV (10:19)
[2020-12-05] MEDS: fosaprepitant 150 MG in sodium chloride 0.9% 150 ML 300 MG IV (10:40)
--- NOTE | 2020-12-06 16:41 | ONC FU_ITS ---
Dr. Yanes follow up note Patient: Winsome Salgado Unit #: [id number]: 1975 Dicatated By: Lena Yanes M.D.Date of Visit:Dec 05, 2020 Onc Med Follow-up/Prog Note History of Present Illness: Mrs Winsome Salgado, is a 45-year-old female with a history of abnormal chest x-ray which showed right middle lobe lung lesion for which she was referred to pulmonology for evaluation and she underwent CT scan of the chest on June 25, 2020 which showed extensive right upper lobe atelectasis/consolidation concerning for postobstructive pneumonia given the presence of spiculated 2.1 cm nodule within the right upper lobe. And extensive mediastinal and right hilar adenopathy worrisome for metastatic disease. Further evaluated with CT PET scan which was done on June 30, 2020 showed 2 x 1.8 cm right middle lobe nodule with SUV of 10.9, a 1.2 cm. Right hilar nodule has an SUV of 8. Other FDG positive nodules are obscured by right middle lobe infiltrate but are present in the right middle lobe. Malignant mediastinal adenopathy is present in the superior anterior mediastinum, right paratracheal, left paratracheal, subaortic, subcarinal, right paraesophageal territory. Multifocal osseous metastatic disease are present in the central sacrum, posterior element of T12. And index lesion in the central sacrum measured 1.3 cm with SUV of 7.6. In the right cervical level 4 territory, there is a 1.5 x 2.7 cm node has SUV of 11.4. An FDG positive cervical level 4 lymph node on July 06, 2020 she underwent bronchoscopy and transbronchial biopsy from right upper lobe showed non-small cell lung cancer, right endobronchial biopsy was positive for non-small cell cancer and station 4R lymph node positive for non-small cell carcinoma as per pathology he was consistent with invasive adenocarcinoma favor lung. Patient denies any history of hemoptysis, denies any dysphagia but complaining of off-and-on headaches and blurred vision which is progressive no focal weakness. Also complaining of lower back pain and right posterior lower rib pain, not being controlled with hydrocodone, denies any history of trauma to her lower back or hip or chest. Patient is also complaining of weight loss, she used to weigh 176 now down to 150 pounds because of poor appetite. Patient is a chronic smoker smoked about 1 to 2 pack a day but now cutting down. Denies any jaundice denies any night sweats denies any fever chills denies any shortness of breath or palpitation.Staging work-up including MRI scan of the brain which was done on July 25, 2020 showed innumerable metastatic lesions throughout the brain involving cerebellum and cerebrum, largest metastatic mass was hemorrhagic measuring 1.5 x 1.4 x 1.9 in the right parafalcine occipital lobe. 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 Keytruda/carboplatin/Taxol was restarted on November 06, 2020 Came for follow-up, denies any specific complaint except episode of nosebleed x2 in the last couple of weeks and also coughed up some blood now resolved, no fever chills, no nausea or vomiting, also complaining of off and on left leg numbness and off-and-on numbness in both hands which is somewhat getting worse but still can button unbutton shirt. No headaches blurred vision double vision, no seizure-like activity, patient on narcotics for chronic pain. Otherwise tolerating systemic therapy with Keytruda/carboplatin/Taxol well Medications: ALPRAZolam 1 Tablet (of 0.5 mg) Oral q 12 hours PRN, Aspirin 81 1 Tablet (of 81 mg) Tablet, chewable Oral daily, Cyclobenzaprine HCl 1 Tablet (of 10 mg) Oral q 8 hours PRN, Dexamethasone 1 Tablet (of 4 mg) Oral daily, Diclofenac Sodium 1 Tablet (of 75 mg) Tablet, enteric coated Oral b.i.d., HYDROcodone-Acetaminophen 1 Tablet (of 10-325 mg) Tablet Oral q 8 hours PRN, hydrOXYzine HCl 1 Tablet (of 25 mg) Oral q 8 hours PRN, Isosorbide Mononitrate ER 1 Tablet (of 60 mg) Tablet SR 24 HR Oral daily, Metoprolol Succinate ER 1 Tablet (of 25 mg) Tablet SR 24 HR Oral daily, Nitroglycerin (0.4 mg) Tablet, sublingual Sublingual Take as Directed, OxyCONTIN (10 mg) Tablet ER 12 HR Abuse-Deterrent Oral b.i.d., Sertraline HCl 1 Tablet (of 50 mg) Oral daily Allergies: Ibuprofen, Ketorolac Tromethamine, Levaquin, Morphine Sulfate, Nalbuphine HCl, Penicillins, Prochlorperazine Maleate, Ritalin, and SUMAtriptan Succinate. Review of Systems: Review of Systems is not available for this patient. Vital Signs: Performed on Dec 05, 2020 09:02 Height - 66.00 in Weight - 144.2 lbs (LOW) BSA - 1.74 sq.m BMI - 23.27 Temperature - 97.6 F (LOW) Pulse - 108 /min (HIGH) Respiration - 18 /min BP - 115/76 mm(hg) O2 Sat - 97 % Pain - 0 Fatigue - 6 Performance Status: 1 - No physically strenuous activity, but ambulatory and able to carry out light or sedentary work (e.g. office work, light house work). (ECOG) Physical Examination: ENMT - No mouth sores, no thrush, no jaundice no lymphadenopathy, Respiratory - Lungs are clear to auscultation, Cardiovascular - Regular rate and rhythm of heart, Abdomen - Soft, bowel sounds present, Extremities - No visible edema, No focal weakness. Lab/Imaging: Test performed on Dec 04, 2020 08:52 Sodium 138 mmol/L Potassium 3.8 mmol/L Chloride 99 mmol/L CO2 24 mmol/L Anion Gap 18.8 BUN 4 mg/dL Creatinine 0.4 mg/dL Cr Clearance (Est) 181.46 mL/min eGFR 171.8 mL/min Glucose 103 mg/dL Osmolality - Calculated 283 mOsm/kg Calcium 8.5 mg/dL Protein, Total 6.0 g/dL Albumin 3.9 g/dL Globulin 2.1 g/dL Bilirubin, Total 0.2 mg/dL ALT (SGPT) 11 Units/L AST (SGOT) 13 Units/L Alkaline Phosphatase 115 IU/L WBC 8.1 10^3/uL RBC 3.69 10^6/uL HGB 10.6 g/dL HCT 33.5 % MCV 90.8 fl MCH 28.7 pg MCHC 31.6 g/dL RDW 20.9 % Platelet Count 351 10^3/uL MPV 9.0 fl Neutrophils 5.81 10^3/uL Lymphocytes 1.4 10^3/uL Monocytes 0.7 10^3/uL Eosinophils 0.1 10^3/uL Basophils 0.1 10^3/uL Neutrophil % 72.1 % Lymphocyte % 17.0 % Monocyte % 8.4 % Eosinophil % 0.9 % Basophils % 0.7 % NRBC 0.0 /100 WBC NRBC % 0 % Test performed on Sep 25, 2020 14:42 Manual Lymphocytes 16 % Manual Monocytes 9 % Manual Eosinophils 1 % Manual Basophils 1 % Impression: Metastatic adenocarcinoma per bronchoscopy done on July 06, 2020 shows right upper lobe endobronchial biopsy was positive for malignancy/non-small cell carcinoma station 4R lymph node positive for non-small cell carcinoma as per pathology histology features suggestive of invasive adenocarcinoma, favor lung MRI scan of the brain done on July 25, 2020 shows innumerable metastatic lesions throughout the brain involving cerebellum and cerebrum, largest metastatic mass is hemorrhagic measuring 1.5 x 1.4 x 1.9 cm in the right parafalcine occipital lobe with a large amount of surrounding edema but no midline shift Status post whole brain radiation therapy completed on August 10, 2020 CT PET scan done on June 30, 2020 showed FDG positive right middle lobe nodule, malignant satellite nodule in the medial right lung and right hilum, extensive malignant mediastinal adenopathy with extension into right and midline cervical node territories., multifocal osseous metastatic disease, in the central sacrum and posterior element of T12 Started on Keytruda every 3 weeks and weekly carboplatin/Taxol on day 1 and 8 on September 04, 2020 History of chronic smoking, still active Weight loss due to poor appetite Plan: Discussed with patient regarding her labs white blood count 8.1 hemoglobin 10.6 g compared to 11.8 g last week hematocrit 33.5 platelets 351,000 CMP within normal limits Clinically, patient is doing reasonably well, now concerned about off and on left leg numbness and off-and-on numbness in both hands which is, as per patient getting worse since she is on chemotherapy, we will hold her weekly Taxol today as neuropathy is a common side effect with the Taxol I will also hold her dose of Neulasta but proceed with carboplatin alone and then she will return to clinic in 2 weeks with CBC and CT PET scan and also consider MRI scan of lumbar sacral area, patient was advised in case there is a worsening of left leg numbness or any urine or stool incontinence, she need to go to hospital immediately otherwise we will request for MRI scan of spine and plan As far as progressive anemia is concerned probably multifactorial including due to chemotherapy as well as recent episode of nosebleed, will check iron studies and B12 level, if there is iron deficiency, will consider iron supplements Signed By: Lena Yanes M.D. <<Signature on File>>
--- NOTE | 2020-12-11 09:34 | MR_ITS ---
WS: [id number] MRI LUMBAR SPINE WITH AND WITHOUT CONTRAST. HISTORY: HX OF CANCER;TINGLING;NUMBNESS COMPARISON: PET CT 12/08/2020 TECHNIQUE: Sagittal and axial multisequence imaging is submitted. Sagittal and axial T1 fat sat seque nces post-MultiHance 20 cc IV. Low-attenuation throughout a majority of the thoracic spine may be from prior radiation. Normal lumbar alignment. Multiple enhancing metastatic bone lesions are identified. Enhancing metastatic lesion in the posteri or T12 vertebral body extends into the posterior elements bilaterally but greatest on the LEFT. There is bone expansion and soft tissue tumor expansion with mild extension into the LEFT T11-12 subarticu lar recess. No definite cord compression although there is no axial imaging. Mild enhancement of the posterior epidural. L4 enhancement consistent with metastatic disease. Very slight loss of superior endplate height to th e LEFT of midline. Mild enhancement extends into the posterior elements, greatest on the LEFT. No cor d compression or epidural enhancement. Enhancement and abnormal signal in S1 and S2. Bone expansion greatest involving the S1 vertebral body extending posteriorly with mild contact on the S2 nerve roots bilaterally but greatest on the LEFT. Significant encroachment into the central canal and subarticular recesses. There is enhancement along the anterior epidural space at S1 and S2. Conus terminates normally at L1. L1-L2: Normal. L2-L3: Normal. L3-L4: Normal. L4-L5: Mild bilateral facet joint arthritis. Ligamentum flavum hypertrophy causing mild central and b ilateral subarticular recess stenosis. Mild bilateral foraminal stenosis. Fluid in the facet joints b ilaterally. L5-S1: Mild bilateral facet joint arthritis. No stenosis. MR/MR lumbar spine wo/w con [id number] IMPRESSION: 1. Multiple metastatic osteophytes are identified. 2. Metastatic disease in the posterior T12 vertebral body with extension into the posterior elements and mild extension and narrowing of the LEFT T11-12 suba rticular recess. No cord compression. 3. Metastatic lesion in L4 with no cord compression. 4. Metastatic disease and S1 and S2 with bone expansion greatest of S1 encroa jacklyn into the central canal and contacting the S2 nerve roots bilaterally with narrowing of the subarticular recesses.
[2020-12-11] MEDS: alteplase 1 mg/mL SDV 2 mL 2 MG IV ×2 (09:50→11:15)
[2020-12-11 10:07] LABS: Basophils % 0.5 %; Eosinophils # 0.1 10^3/uL (0.0-0.8); Eosinophils % 1.6 %; Hematocrit 35.1 % (37.0-47.0); Hemoglobin 11.2 g/dL (11.5-15.3); Lymphocytes # 1.5 10^3/uL (0.8-4.8); Lymphocytes % 19.3 %; Mean Corpuscular HGB Conc 31.9 g/dL (30.0-36.0); Mean Corpuscular Hemoglobin 29.2 pg (28.0-34.0); Mean Corpuscular Volume 91.4 fl (81-99); Mean Platelet Volume 8.3 fL (7.4-10.4); Monocytes # 0.6 10^3/uL (0.2-0.9); Monocytes % 7.9 %; Neutrophils # 5.32 10^3/uL (1.8-7.7); Neutrophils % 70.3 %; Nucleated Red Blood Cells % 0 %; Platelet Count 308 10^3/cmm (130-400); Red Blood Count 3.84 10^6/uL (4.1-5.3); Red Cell Distribution Width 21.8 % (12.1-15.1); White Blood Count 7.6 10^3/uL (4.0-10.0)
[2020-12-11] MEDS: gadobenate dimeglumine 20 mL vial IV (10:26)
[2020-12-11 10:29] LABS: Alanine Aminotransferase 13 U/L (0-33); Albumin Level 3.7 g/dL (3.5-5.2); Alkaline Phosphatase 110 IU/L (35-105); Anion Gap 17.8 (5-19); Aspartate Amino Transferase 14 U/L (0-32); Blood Urea Nitrogen 5 mg/dL (6-20); Calcium 9.1 mg/dL (8.5-10.5); Carbon Dioxide 24 mmol/L (22-29); Chloride 95 mmol/L (98-107); Globulin 3.3 g/dL (1.3-4.6); Glomerular Filtration Rate 171.8 mL/min (90-130); Glucose 134 mg/dL (65-115); Osmolality Calculated 275 mOsm/kg (285-295); Potassium 3.8 mmol/L (3.5-5.1); Sodium 133 mmol/L (136-145); Total Bilirubin 0.2 mg/dL (0.15-1.2)
== END 2020-12-25 23:59 | disposition home or self-care (01) ==
LOC: ONCMED 09:30
PROVIDERS: PCP Family Medicine; Visit Provider Internal Medicine Hematology & Oncology
DX: Z51.12 Encounter for antineoplastic immunotherapy (principal); Z51.11 Encounter for antineoplastic chemotherapy; C34.11 Malignant neoplasm of upper lobe, right bronchus or lung; C79.31 Secondary malignant neoplasm of brain; C79.51 Secondary malignant neoplasm of bone; F17.210 Nicotine dependence, cigarettes, uncomplicated; R63.4 Abnormal weight loss; Z79.899 Other long term (current) drug therapy
CPT/HCPCS: 36415; 36593; 72158; 80053; 85025; 96367; 96374; 96375; 96376; 96413; 96417; 99215; A9577; J1100; J1200; J1453; J2469; J2997; J3490; J7030; J7040; J7050; J9045; J9267; J9271

== ENCOUNTER → 2020-12-18 09:13 | Outpatient (BNVA) | payer MEDICARE, MEDICAID, SELFPAY | PROVIDERS: PCP Family Medicine; Visit Provider Internal Medicine Hematology & Oncology | DX: C34.90 Malignant neoplasm of unspecified part of unspecified bronchus or lung (principal); R06.02 Shortness of breath; R00.2 Palpitations | CPT/HCPCS: 80053; 82607; 82728; 82746; 83550; 85025 ==

== ENCOUNTER → 2021-01-01 08:59 | Outpatient (BNVA) | payer MEDICARE, MEDICAID, SELFPAY | PROVIDERS: PCP Family Medicine; Visit Provider Internal Medicine Hematology & Oncology | DX: C34.90 Malignant neoplasm of unspecified part of unspecified bronchus or lung (principal); Z79.899 Other long term (current) drug therapy | CPT/HCPCS: 80053; 82607; 82728; 82746; 83550; 85025 ==

== ENCOUNTER 2021-01-23 06:26 | Outpatient (RCR) | payer MEDICARE, MEDICAID, SELFPAY ==
[2021-01-02] MEDS: sodium chloride 0.9% 250 ML 75 ML IV (10:35)
[2021-01-02] MEDS: diphenhydrAMINE 50 mg/mL SDV 1mL 25 MG IVP (10:38)
[2021-01-02] MEDS: famotidine 20 mg/2 mL INJ IVP (10:40)
[2021-01-02] MEDS: palonosetron 0.25 mg/5 mL SDV IVP (10:42)
[2021-01-02] MEDS: fosaprepitant 150 MG in sodium chloride 0.9% 150 ML 300 MG IV (11:03)
--- NOTE | 2021-01-02 14:36 | N.ONRAD NP_ITS ---
Radiation Oncology Consultation Patient Name: Winsome Salgado Date of : 1975 Date of Service: 01/02/2021 Attending Physician: Diogo Urban M.D. Winsome Salgado was seen in consultation this afternoon at the request of Davian Yanes M.D. for consideration of palliative radiotherapy for the management of metastatic non-small cell lung cancer. She was initially evaluated for chest pain. Chest radiography was noted to reveal a right middle lobe lung nodule. A CT scan ordered on June 25, 2020 chelated nodule with right upper lobe consolidation and bulky right hilar and mediastinal adenopathy. A PET CT obtained on June 30, 2020 confirmed FDG activity within right middle lobe nodule, hypermetabolic activity within the right hilum and mediastinum, and multifocal metastatic disease in the sacrum, posterior elements of the 12th thoracic vertebral body, and right cervical lymph node levels IV and . A bronchoscopy with biopsy performed on July 06, 2020 identified extrinsic compression of the right middle lobe bronchus and right lower lobe segmental bronchi. The pathology report diagnosed an adenocarcinoma. An MRI of the brain completed on July 25, 2020 revealed innumerable metastatic lesions. She completed cranial radiotherapy on August 10, 2020 (30 Gy in 10 fractions). The patient received two cycles of Keytruda, carboplatin, and Taxol between the dates of September 04, 2020 through September 26, 2020. Her back pain has worsened despite her current narcotic regimen. T12 was treated between the dates of October 03, 2020 through October 17, 2020. A prescribed dose of 30 Gy was delivered in 10 fractions. Chemotherapy resumed on November 06, 2020. During a routinely scheduled follow-up appointment with her medical oncologist, she reported left lower extremity paresthesia. A PET CT (independently reviewed in [facility]) ordered on December 08, 2020 identified osseous metastatic disease in T12, L4, sacrum, and the left acetabulum. Persistent disease was noted in the right upper lobe, right hilum, and mediastinum. An MR of the lumbar spine delineated enhancement in T12, L4, and S1-2. The patient was evaluated for palliative radiotherapy for the L4, sacral, and left acetabular lesions. I discussed with Ms. Salgado the role for palliative radiotherapy. I would recommend a 2-week course of radiation therapy. A CT scan will be performed for radiotherapy planning prior to beginning treatment to delineate the clinical target volumes. The potential toxicities of pelvic radiotherapy were reviewed. The patient has verbalized understanding would like to proceed as recommended. Her medical treatment plan has been discussed with Davian Yanes M.D. Signed by: Dr. Diogo Urban 01/02/2021 2:34:42 PM
--- NOTE | 2021-01-02 16:11 | ONC FU_ITS ---
Dr. Yanes follow up note Patient: Winsome Salgado Unit #: [id number]: 1975 Dicatated By: Lena Yanes M.D.Date of Visit:Jan 02, 2021 Onc Med Follow-up/Prog Note History of Present Illness: Mrs Winsome Salgado, is a 45-year-old female with a history of abnormal chest x-ray which showed right middle lobe lung lesion for which she was referred to pulmonology for evaluation and she underwent CT scan of the chest on June 25, 2020 which showed extensive right upper lobe atelectasis/consolidation concerning for postobstructive pneumonia given the presence of spiculated 2.1 cm nodule within the right upper lobe. And extensive mediastinal and right hilar adenopathy worrisome for metastatic disease. Further evaluated with CT PET scan which was done on June 30, 2020 showed 2 x 1.8 cm right middle lobe nodule with SUV of 10.9, a 1.2 cm. Right hilar nodule has an SUV of 8. Other FDG positive nodules are obscured by right middle lobe infiltrate but are present in the right middle lobe. Malignant mediastinal adenopathy is present in the superior anterior mediastinum, right paratracheal, left paratracheal, subaortic, subcarinal, right paraesophageal territory. Multifocal osseous metastatic disease are present in the central sacrum, posterior element of T12. And index lesion in the central sacrum measured 1.3 cm with SUV of 7.6. In the right cervical level 4 territory, there is a 1.5 x 2.7 cm node has SUV of 11.4. An FDG positive cervical level 4 lymph node on July 06, 2020 she underwent bronchoscopy and transbronchial biopsy from right upper lobe showed non-small cell lung cancer, right endobronchial biopsy was positive for non-small cell cancer and station 4R lymph node positive for non-small cell carcinoma as per pathology he was consistent with invasive adenocarcinoma favor lung. Patient denies any history of hemoptysis, denies any dysphagia but complaining of off-and-on headaches and blurred vision which is progressive no focal weakness. Also complaining of lower back pain and right posterior lower rib pain, not being controlled with hydrocodone, denies any history of trauma to her lower back or hip or chest. Patient is also complaining of weight loss, she used to weigh 176 now down to 150 pounds because of poor appetite. Patient is a chronic smoker smoked about 1 to 2 pack a day but now cutting down. Denies any jaundice denies any night sweats denies any fever chills denies any shortness of breath or palpitation.Staging work-up including MRI scan of the brain which was done on July 25, 2020 showed innumerable metastatic lesions throughout the brain involving cerebellum and cerebrum, largest metastatic mass was hemorrhagic measuring 1.5 x 1.4 x 1.9 in the right parafalcine occipital lobe. 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 Keytruda/carboplatin/Taxol was restarted on November 06, 2020 Came for follow-up, complaining of lower back pain but somewhat under control with current pain medication, sometimes lower back pain radiated to left leg but denies any urine or stool incontinence, denies any fever chills no nausea or vomiting, no diarrhea or constipation, no jaundice no headaches mild peripheral numbness otherwise tolerating systemic chemotherapy with carboplatin/Taxol/Keytruda well, her CT PET scan finding were discussed with Dr. Brooks who, as per nurse, when compared recent CT PET scan with previous, did notice some improvement but we are still awaiting final amended CT PET scan report Medications: ALPRAZolam 1 Tablet (of 0.5 mg) Oral q 12 hours PRN, Aspirin 81 1 Tablet (of 81 mg) Tablet, chewable Oral daily, Cyclobenzaprine HCl 1 Tablet (of 10 mg) Oral q 8 hours PRN, Dexamethasone 1 Tablet (of 4 mg) Oral daily, Diclofenac Sodium 1 Tablet (of 75 mg) Tablet, enteric coated Oral b.i.d., HYDROcodone-Acetaminophen 1 Tablet (of 10-325 mg) Tablet Oral q 8 hours PRN, hydrOXYzine HCl 1 Tablet (of 25 mg) Oral q 8 hours PRN, Isosorbide Mononitrate ER 1 Tablet (of 60 mg) Tablet SR 24 HR Oral daily, Metoprolol Succinate ER 1 Tablet (of 25 mg) Tablet SR 24 HR Oral daily, Nitroglycerin (0.4 mg) Tablet, sublingual Sublingual Take as Directed, OxyCONTIN (10 mg) Tablet ER 12 HR Abuse-Deterrent Oral b.i.d., Sertraline HCl 1 Tablet (of 50 mg) Oral daily Allergies: Ibuprofen, Ketorolac Tromethamine, Levaquin, Morphine Sulfate, Nalbuphine HCl, Penicillins, Prochlorperazine Maleate, Ritalin, and SUMAtriptan Succinate. Review of Systems: Review of Systems is not available for this patient. Vital Signs: Performed on Jan 02, 2021 15:41 Height - 66.00 in Weight - 143.4 lbs Temperature - 97.8 F Pulse - 124 /min (HIGH) Respiration - 18 /min BP - 102/69 mm(hg) O2 Sat - 96 % Pain - 9 Performed on Jan 02, 2021 15:41 BMI - 23.146 kg/m2 (HIGH) Performed on Jan 02, 2021 15:10 Height - 66.00 in Weight - 143.4 lbs (LOW) BSA - 1.74 sq.m BMI - 23.15 Temperature - 97.8 F (LOW) Pulse - 124 /min (HIGH) Respiration - 18 /min BP - 102/69 mm(hg) O2 Sat - 96 % Pain - 0 Fatigue - 0 Performance Status: 1 - No physically strenuous activity, but ambulatory and able to carry out light or sedentary work (e.g. office work, light house work). (ECOG) Physical Examination: ENMT - No mouth sores, no thrush, no jaundice, Respiratory - Lungs are clear to auscultation, Cardiovascular - Regular rate and rhythm of heart, Abdomen - Soft, bowel sounds present, Extremities - No visible edema. Lab/Imaging: Test performed on Jan 01, 2021 08:59 Ferritin 388 ng/mL Folate, Serum 20.0 ng/mL Iron 45 mcg/dL Sodium 141 mmol/L Vitamin B12 1115 pg/mL Iron Binding Capacity (TIBC) 219 mcg/dL Potassium 4.5 mmol/L % Iron Saturation 20.5 % Chloride 99 mmol/L CO2 28 mmol/L UIBC 174 mcg/dL Anion Gap 18.5 BUN 4 mg/dL Creatinine 0.4 mg/dL Cr Clearance (Est) 181.46 mL/min eGFR 171.8 mL/min Glucose 93 mg/dL Osmolality - Calculated 289 mOsm/kg Calcium 9.4 mg/dL Protein, Total 6.6 g/dL Albumin 3.7 g/dL Globulin 2.9 g/dL Bilirubin, Total 0.2 mg/dL ALT (SGPT) 8 Units/L AST (SGOT) 15 Units/L Alkaline Phosphatase 130 International Units/L WBC 9.5 10^3/uL RBC 4.44 10^6/uL HGB 13.8 g/dL HCT 41.6 % MCV 93.7 fl MCH 31.1 pg MCHC 33.2 g/dL RDW 22.5 % Platelet Count 494 10^3/uL MPV 8.5 fl Neutrophils 6.55 10^3/uL Lymphocytes 2.0 10^3/uL Monocytes 0.8 10^3/uL Eosinophils 0.1 10^3/uL Basophils 0.0 10^3/uL Neutrophil % 69.2 % Lymphocyte % 20.6 % Monocyte % 8.1 % Eosinophil % 1.4 % Basophils % 0.3 % NRBC 0.0 /100 WBC NRBC % 0 % Test performed on Sep 25, 2020 14:42 Manual Lymphocytes 16 % Manual Monocytes 9 % Manual Eosinophils 1 % Manual Basophils 1 % Impression: Metastatic adenocarcinoma per bronchoscopy done on July 06, 2020 shows right upper lobe endobronchial biopsy was positive for malignancy/non-small cell carcinoma station 4R lymph node positive for non-small cell carcinoma as per pathology histology features suggestive of invasive adenocarcinoma, favor lung MRI scan of the brain done on July 25, 2020 shows innumerable metastatic lesions throughout the brain involving cerebellum and cerebrum, largest metastatic mass is hemorrhagic measuring 1.5 x 1.4 x 1.9 cm in the right parafalcine occipital lobe with a large amount of surrounding edema but no midline shift Status post whole brain radiation therapy completed on August 10, 2020 CT PET scan done on June 30, 2020 showed FDG positive right middle lobe nodule, malignant satellite nodule in the medial right lung and right hilum, extensive malignant mediastinal adenopathy with extension into right and midline cervical node territories., multifocal osseous metastatic disease, in the central sacrum and posterior element of T12 Started on Keytruda every 3 weeks and weekly carboplatin/Taxol on day 1 and 8 on September 04, 2020 History of chronic smoking, still active Weight loss due to poor appetite Progressive lower back pain with radiation to left, probably metastatic disease to the lumbar sacral area MRI scan of the spine Done on December 11, 2020 showed multiple metastatic osteophytes identified. Metastatic disease in the posterior T12 vertebral body with extension into posterior elements and mild extension and narrowing of left T11/12 subarticular recess. No cord compression. Metastatic lesion in the L4 with no cord compression. Metastatic disease in S1 and S2 with bone extension greater of S1 encroachment into central canal adequate contacting the S2 nerve roots bilaterally with narrowing of the subarticular recesses. Plan: . Discussed with patient regarding her labs white blood count 9.5 hemoglobin 13.8 hematocrit 41.6 platelets 494,000 CMP within normal limits ferritin 388 iron saturation 20.5 iron 45 B12 1115 MRI scan of the spine Done on December 11, 2020 showed multiple metastatic osteophytes identified. Metastatic disease in the posterior T12 vertebral body with extension into posterior elements and mild extension and narrowing of left T11/12 subarticular recess. No cord compression. Metastatic lesion in the L4 with no cord compression. Metastatic disease in S1 and S2 with bone extension greater of S1 encroachment into central canal adequate contacting the S2 nerve roots bilaterally with narrowing of the subarticular recesses. Clinically, patient is doing well in mild to moderate distress due to persistent, progressive lower back pain not being controlled with current pain medication, at this point we will refer her to radiation oncology for evaluation for palliative radiation therapy to lumbar sacral area, patient has history of radiation therapy done to T12 vertebra in the past, patient was referred to radiation oncology earlier but because of Covid infection family, patient quarantined herself. Her CT PET scan findings were discussed with Dr. Brooks and he informed Etelvina, our nurse that there was a improvement when compared with the previous CT PET scan but we awaiting amended report, her PET scan shows significant improvement then we will continue with same regimen and repeat CT PET scan after 3 cycles if it shows stable disease, then will consider switching her to pemetrexed based regimen. We will proceed with next cycle of chemotherapy with Keytruda/carboplatin/Taxol and then skip next weekly dose of carboplatin and Taxol as patient will be receiving radiation therapy to her lumbar sacral area and then she will return to clinic in 3 weeks with CBC CMP hopefully by that time she will complete her radiation therapy and to resume her systemic therapy, again if PET scan shows significant improvement will continue same regimen if not we may switch her to pemetrexed based regimen along with immunotherapy. Signed By: Lena Yanes M.D. <<Signature on File>>
--- NOTE | 2021-01-03 | CT_ITS ---
Radiation Therapy Planning CT images; total exam DLP: 816.46 mGy-cm MTDD
--- NOTE | 2021-01-07 10:20 | ONCRAD TMN_ITS ---
Radiation Oncology Treatment Management Note Patient Name: Winsome Salgado Date of : 1975 Date of Service: 01/07/2021 Attending Physician: Diogo Urban M.D. Winsome Salgado is a 45 year-old white female diagnosed with metastatic non-small cell lung cancer involving L4 and S1-2 vertebral body lesions. The patient has received 3 Gy of a prescribed 30 Morrissey to L4 and S1-2 vertebral bodies with a 3-dimensional conformal radiotherapy plan utilizing AP/PA and lateral treatment tinsley. Upon review of systems, there were no changes to her back pain. On physical examination, the patient weighed 142 lbs. Her temperature was 97.5 ???F with a blood pressure of 99/65 mmHg. Her pulse was 93 bpm and the respiratory rate was 18 breaths per minute. No erythema was present within the skin. Continue palliative radiotherapy as prescribed. Signed by: Dr. Diogo Urban 01/07/2021 10:19:43 AM
--- NOTE | 2021-01-14 09:59 | ONCRAD TMN_ITS ---
Radiation Oncology Treatment Management Note Patient Name: Winsome Salgado Date of : 1975 Date of Service: 01/14/2021 Attending Physician: Diogo Urban M.D. Winsome Salgado is a 45 year-old white female diagnosed with metastatic non-small cell lung cancer involving L4 and S1-2 vertebral body lesions. The patient has received 18 Gy of a prescribed 30 Morrissey to L4 and S1-2 vertebral bodies with a 3-dimensional conformal radiotherapy plan utilizing AP/PA and lateral treatment tinsley. Upon review of systems, she denied back pain. On physical examination, the patient weighed 143 lbs. Her temperature was 98.3 ???F with a blood pressure of 98/66 mmHg. Her pulse was 96 bpm and the respiratory rate was 18 breaths per minute. No erythema was present within the skin. Continue palliative radiotherapy as planned. Signed by: Dr. Diogo Urban 01/14/2021 9:58:19 AM
--- NOTE | 2021-01-18 09:40 | N.ONRD TS_ITS ---
Radiation OncologyTreatment Summary Patient Name: Winsome Salgado Date of : 1975 Date of Service: 01/17/2021 Attending Physician: Diogo Urban M.D. Winsome Salgado has completed palliative radiotherapy for the management of metastatic non-small cell lung cancer involving L4 and S1-2 vertebral body lesions. Daily radiotherapy was administered between the dates of January 07, 2021 through January 18, 2021. A prescribed dose of 30 Gy was delivered in 10 fractions encompassing 12 elapsed days. The L4 and S1-2 vertebral body lesions was treated utilizing a 3-dimensional conformal radiotherapy plan with AP/PA tinsley and a right lateral port. The AP field utilized a 0??? gantry angle with a collimator angle of 0???. The field size measured 7.5 cm x 7.5 cm within the X-direction and 8 cm x 8 cm within the Y-direction. The SSD measured 86.9 cm with the field delivering 85 monitor units. The PA port employed a gantry angle of 180??? and a collimator angle of 0???. The field size was 7.5 cm x 7.5 cm within X-direction and 8 cm x 8 cm within the Y-direction. The SSD was 91.5 cm with the field allocating 78 monitor units. The left lateral field was designed with a gantry angle of 90??? and a collimator angle of 0???. The measured field size was 6 cm x 8.5 cm within the X direction and 8 cm x 7 cm within the Y direction. The measured SSD was 85 cm with the field apportioning 91 monitor units. All treatments were performed with the Literably linear accelerator and an isocentric technique. The dose was calculated by Anisotropic Analytic Algorithm. A photon energy of 15 MV was prescribed with the plan normalized to deliver 100% of the prescription dose to 100% of the planning target volume. Signed by: Dr. Diogo Urban 01/18/2021 9:38:42 AM
[2021-01-23 10:00] LABS: Basophils % 0.2 %; Hematocrit 37.2 % (37.0-47.0); Hemoglobin 12.3 g/dL (11.5-15.3); Lymphocytes # 0.7 10^3/uL (0.8-4.8); Lymphocytes % 6.5 %; Mean Corpuscular HGB Conc 33.1 g/dL (30.0-36.0); Mean Corpuscular Hemoglobin 31.1 pg (28.0-34.0); Mean Corpuscular Volume 93.9 fl (81-99); Mean Platelet Volume 8.4 fL (7.4-10.4); Monocytes # 0.1 10^3/uL (0.2-0.9); Monocytes % 0.7 %; Neutrophils # 9.75 10^3/uL (1.8-7.7); Neutrophils % 91.3 %; Nucleated Red Blood Cells % 0 %; Platelet Count 334 10^3/cmm (130-400); Red Blood Count 3.96 10^6/uL (4.1-5.3); Red Cell Distribution Width 20.4 % (12.1-15.1); White Blood Count 10.7 10^3/uL (4.0-10.0)
[2021-01-23 10:33] LABS: Alanine Aminotransferase 8 U/L (0-33); Albumin Level 3.2 g/dL (3.5-5.2); Alkaline Phosphatase 112 IU/L (35-105); Anion Gap 18.8 (5-19); Aspartate Amino Transferase 12 U/L (0-32); Blood Urea Nitrogen 5 mg/dL (6-20); Calcium 8.5 mg/dL (8.5-10.5); Carbon Dioxide 24 mmol/L (22-29); Chloride 99 mmol/L (98-107); Globulin 3.1 g/dL (1.3-4.6); Glomerular Filtration Rate 171.8 mL/min (90-130); Glucose 233 mg/dL (65-115); Osmolality Calculated 291 mOsm/kg (285-295); Potassium 3.8 mmol/L (3.5-5.1); Sodium 138 mmol/L (136-145); Total Bilirubin 0.2 mg/dL (0.15-1.2); Total Protein 6.3 g/dL (6.6-8.7)
[2021-01-23] MEDS: sodium chloride 0.9% 250 ML 75 ML IV (12:13)
[2021-01-23] MEDS: diphenhydrAMINE 50 mg/mL SDV 1mL 25 MG IV (12:13)
[2021-01-23] MEDS: famotidine 20 mg/2 mL INJ IVP (12:15)
[2021-01-23] MEDS: palonosetron 0.25 mg/5 mL SDV IV (12:17)
[2021-01-23] MEDS: fosaprepitant 150 MG in sodium chloride 0.9% 150 ML 300 MG IV (12:45)
--- NOTE | 2021-01-23 13:23 | ONC FU_ITS ---
Dr. Yanes follow up note Patient: Winsome Salgado Unit #: [id number]: [id number] Dicatated By: Lena Yanes M.D.Date of Visit:Jan 23, 2021 Onc Med Follow-up/Prog Note History of Present Illness: Mrs Winsome Salgado, is a 45-year-old female with a history of abnormal chest x-ray which showed right middle lobe lung lesion for which she was referred to pulmonology for evaluation and she underwent CT scan of the chest on June 25, 2020 which showed extensive right upper lobe atelectasis/consolidation concerning for postobstructive pneumonia given the presence of spiculated 2.1 cm nodule within the right upper lobe. And extensive mediastinal and right hilar adenopathy worrisome for metastatic disease. Further evaluated with CT PET scan which was done on June 30, 2020 showed 2 x 1.8 cm right middle lobe nodule with SUV of 10.9, a 1.2 cm. Right hilar nodule has an SUV of 8. Other FDG positive nodules are obscured by right middle lobe infiltrate but are present in the right middle lobe. Malignant mediastinal adenopathy is present in the superior anterior mediastinum, right paratracheal, left paratracheal, subaortic, subcarinal, right paraesophageal territory. Multifocal osseous metastatic disease are present in the central sacrum, posterior element of T12. And index lesion in the central sacrum measured 1.3 cm with SUV of 7.6. In the right cervical level 4 territory, there is a 1.5 x 2.7 cm node has SUV of 11.4. An FDG positive cervical level 4 lymph node on July 06, 2020 she underwent bronchoscopy and transbronchial biopsy from right upper lobe showed non-small cell lung cancer, right endobronchial biopsy was positive for non-small cell cancer and station 4R lymph node positive for non-small cell carcinoma as per pathology he was consistent with invasive adenocarcinoma favor lung. Patient denies any history of hemoptysis, denies any dysphagia but complaining of off-and-on headaches and blurred vision which is progressive no focal weakness. Also complaining of lower back pain and right posterior lower rib pain, not being controlled with hydrocodone, denies any history of trauma to her lower back or hip or chest. Patient is also complaining of weight loss, she used to weigh 176 now down to 150 pounds because of poor appetite. Patient is a chronic smoker smoked about 1 to 2 pack a day but now cutting down. Denies any jaundice denies any night sweats denies any fever chills denies any shortness of breath or palpitation.Staging work-up including MRI scan of the brain which was done on July 25, 2020 showed innumerable metastatic lesions throughout the brain involving cerebellum and cerebrum, largest metastatic mass was hemorrhagic measuring 1.5 x 1.4 x 1.9 in the right parafalcine occipital lobe. 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 Keytruda/carboplatin/Taxol was restarted on November 06, 2020 Patient was treated with palliative radiation therapy to L4 and S1-2 and completed 3000 hours in 10 fraction on January 18, 2021, Her systemic therapy was held during palliative radiation therapy and patient resumed her chemo immunotherapy with Keytruda/carboplatin/Taxol on January 23, 2021 Came for follow-up, denies any specific complaint except persistent lower back pain radiating to left leg, patient has completed radiation therapy to lumbar vertebra on January 18, 2021 with mixed response some improvement in pain but still has significant amount of pain, as per patient she discussed with Dr. Urban, radiation oncologist and who in return discussed with Dr. Skelton patient's primary care and now adjusting her pain medication. Patient denies any urine or stool incontinence, denies any lower extremity weakness. Denies any hemoptysis hematemesis denies any fever chills denies any peripheral numbness, denies any shortness of breath. Tolerating systemic therapy with Keytruda/carboplatin/Taxol well otherwise Medications: ALPRAZolam 1 Tablet (of 0.5 mg) Oral q 12 hours PRN, Aspirin 81 1 Tablet (of 81 mg) Tablet, chewable Oral daily, Cyclobenzaprine HCl 1 Tablet (of 10 mg) Oral q 8 hours PRN, Dexamethasone 1 Tablet (of 4 mg) Oral daily, Diclofenac Sodium 1 Tablet (of 75 mg) Tablet, enteric coated Oral b.i.d., HYDROcodone-Acetaminophen 1 Tablet (of 10-325 mg) Tablet Oral q 8 hours PRN, hydrOXYzine HCl 1 Tablet (of 25 mg) Oral q 8 hours PRN, Isosorbide Mononitrate ER 1 Tablet (of 60 mg) Tablet SR 24 HR Oral daily, Metoprolol Succinate ER 1 Tablet (of 25 mg) Tablet SR 24 HR Oral daily, Nitroglycerin (0.4 mg) Tablet, sublingual Sublingual Take as Directed, OxyCONTIN (20 mg) Tablet ER 12 HR Abuse-Deterrent Oral b.i.d., Sertraline HCl 1 Tablet (of 50 mg) Oral daily Allergies: Ibuprofen, Ketorolac Tromethamine, Levaquin, Morphine Sulfate, Nalbuphine HCl, Penicillins, Prochlorperazine Maleate, Ritalin, and SUMAtriptan Succinate. Review of Systems: Review of Systems is not available for this patient. Vital Signs: Performed on Jan 23, 2021 12:31 Height - 66.00 in Weight - 146.8 lbs (HIGH) BSA - 1.75 sq.m BMI - 23.69 Temperature - 97.8 F (LOW) Pulse - 96 /min Respiration - 18 /min BP - 111/77 mm(hg) O2 Sat - 97 % Pain - 5 Fatigue - 0 Performance Status: 1 - No physically strenuous activity, but ambulatory and able to carry out light or sedentary work (e.g. office work, light house work). (ECOG) Physical Examination: ENMT - No mouth sores, no thrush, no jaundice, Respiratory - Lungs are clear to auscultation, Cardiovascular - Regular rate and rhythm of heart, Abdomen - Soft, bowel sounds present, Extremities - No visible edema. Lab/Imaging: Test performed on Jan 23, 2021 10:57 Creatinine 0.4 mg/dL Cr Clearance (Est) 181.46 mL/min Test performed on Jan 01, 2021 08:59 Ferritin 388 ng/mL Folate, Serum 20.0 ng/mL Iron 45 mcg/dL Sodium 141 mmol/L Vitamin B12 1115 pg/mL Iron Binding Capacity (TIBC) 219 mcg/dL Potassium 4.5 mmol/L % Iron Saturation 20.5 % Chloride 99 mmol/L CO2 28 mmol/L UIBC 174 mcg/dL Anion Gap 18.5 BUN 4 mg/dL eGFR 171.8 mL/min Glucose 93 mg/dL Osmolality - Calculated 289 mOsm/kg Calcium 9.4 mg/dL Protein, Total 6.6 g/dL Albumin 3.7 g/dL Globulin 2.9 g/dL Bilirubin, Total 0.2 mg/dL ALT (SGPT) 8 Units/L AST (SGOT) 15 Units/L Alkaline Phosphatase 130 International Units/L WBC 9.5 10^3/uL RBC 4.44 10^6/uL HGB 13.8 g/dL HCT 41.6 % MCV 93.7 fl MCH 31.1 pg MCHC 33.2 g/dL RDW 22.5 % Platelet Count 494 10^3/uL MPV 8.5 fl Neutrophils 6.55 10^3/uL Lymphocytes 2.0 10^3/uL Monocytes 0.8 10^3/uL Eosinophils 0.1 10^3/uL Basophils 0.0 10^3/uL Neutrophil % 69.2 % Lymphocyte % 20.6 % Monocyte % 8.1 % Eosinophil % 1.4 % Basophils % 0.3 % NRBC 0.0 /100 WBC NRBC % 0 % Test performed on Sep 25, 2020 14:42 Manual Lymphocytes 16 % Manual Monocytes 9 % Manual Eosinophils 1 % Manual Basophils 1 % Impression: Metastatic adenocarcinoma per bronchoscopy done on July 06, 2020 shows right upper lobe endobronchial biopsy was positive for malignancy/non-small cell carcinoma station 4R lymph node positive for non-small cell carcinoma as per pathology histology features suggestive of invasive adenocarcinoma, favor lung MRI scan of the brain done on July 25, 2020 shows innumerable metastatic lesions throughout the brain involving cerebellum and cerebrum, largest metastatic mass is hemorrhagic measuring 1.5 x 1.4 x 1.9 cm in the right parafalcine occipital lobe with a large amount of surrounding edema but no midline shift Status post whole brain radiation therapy completed on August 10, 2020 CT PET scan done on June 30, 2020 showed FDG positive right middle lobe nodule, malignant satellite nodule in the medial right lung and right hilum, extensive malignant mediastinal adenopathy with extension into right and midline cervical node territories., multifocal osseous metastatic disease, in the central sacrum and posterior element of T12 Started on Keytruda every 3 weeks and weekly carboplatin/Taxol on day 1 and 8 on September 04, 2020 History of chronic smoking, still active Weight loss due to poor appetite Progressive lower back pain with radiation to left, probably metastatic disease to the lumbar sacral area MRI scan of the spine Done on December 11, 2020 showed multiple metastatic osteophytes identified. Metastatic disease in the posterior T12 vertebral body with extension into posterior elements and mild extension and narrowing of left T11/12 subarticular recess. No cord compression. Metastatic lesion in the L4 with no cord compression. Metastatic disease in S1 and S2 with bone extension greater of S1 encroachment into central canal adequate contacting the S2 nerve roots bilaterally with narrowing of the subarticular recesses. Patient was referred to radiation oncology and she received 3000 rad in 10 fraction to her lumbar sacral area and completed her radiation therapy on January 18, 2021 with a mixed response, her chemotherapy/immunotherapy was held during treatment as she resumed her systemic treatment on January 23, 2021 Plan: Discussed with patient regarding her labs white blood count 10.7 hemoglobin 12.3 hematocrit 37.2 platelets 334,000 CMP within normal limits except glucose 233 Clinically, patient is a mild to moderate distress due to lower back pain radiating to left leg, as per patient her PMD, after discussion with Dr. Urban, radiation oncologist, has increased her pain medication and she will picking supervisor her prescription tomorrow. Otherwise she has completed palliative radiation therapy to L4/S1-S2 on January 18, 2021 with mixed response., We will discuss her case with Dr. Urban and review MRI scan of lumbosacral area as clinically it appears patient has pain due to radiculopathy and will discuss if orthopedics can be of any help. In the meantime we will proceed with her next cycle of chemotherapy with Keytruda/weekly carboplatin/Taxol today and then she will return to clinic in 1 week with CBC CMP and if reasonable, day 8 chemo with carboplatin/Taxol. Patient was advised in case there is a worsening of her lower back pain or any urine or stool incontinence or any focal weakness in lower extremity, she need to call us or go to hospital for immediate attention. Signed By: Lena Yanes M.D. <<Signature on File>>
== END 2021-01-24 23:59 | disposition home or self-care (01) ==
LOC: ONCMED 06:26
PROVIDERS: PCP Family Medicine; Visit Provider Internal Medicine Hematology & Oncology
DX: Z51.12 Encounter for antineoplastic immunotherapy (principal); Z51.0 Encounter for antineoplastic radiation therapy; Z51.11 Encounter for antineoplastic chemotherapy; C34.11 Malignant neoplasm of upper lobe, right bronchus or lung; C77.8 Secondary and unspecified malignant neoplasm of lymph nodes of multiple regions; C79.31 Secondary malignant neoplasm of brain; C79.51 Secondary malignant neoplasm of bone; F17.210 Nicotine dependence, cigarettes, uncomplicated; R63.4 Abnormal weight loss; M54.5 Low back pain; Z79.899 Other long term (current) drug therapy
CPT/HCPCS: 77290; 77295; 77300; 77334; 77336; 77387; 77412; 80053; 85025; 96367; 96375; 96413; 96417; 99215; J1100; J1200; J1453; J2469; J3490; J7030; J7040; J7050; J9045; J9267; J9271

== ENCOUNTER → 2021-02-05 10:09 | Outpatient (BNVA) | payer MEDICARE, MEDICAID, SELFPAY | PROVIDERS: PCP Family Medicine; Visit Provider Internal Medicine Hematology & Oncology | DX: C34.90 Malignant neoplasm of unspecified part of unspecified bronchus or lung (principal) | CPT/HCPCS: 80053; 85025 ==

== ENCOUNTER → 2021-02-11 10:09 | Outpatient (BNVA) | payer MEDICARE, MEDICAID, SELFPAY | PROVIDERS: PCP Family Medicine; Visit Provider Internal Medicine Hematology & Oncology | DX: C34.90 Malignant neoplasm of unspecified part of unspecified bronchus or lung (principal) | CPT/HCPCS: 80053; 85025 ==

== ENCOUNTER → 2021-02-19 00:01 | Outpatient (BNVA) | payer MEDICARE, MEDICAID, SELFPAY | PROVIDERS: PCP Family Medicine; Visit Provider Internal Medicine Hematology & Oncology | DX: C34.90 Malignant neoplasm of unspecified part of unspecified bronchus or lung (principal) | CPT/HCPCS: 80053; 85025 ==

== ENCOUNTER 2021-02-20 06:07 | Outpatient (RCR) | payer MEDICARE, MEDICAID, SELFPAY ==
--- NOTE | 2021-01-30 11:23 | PC.PHAR ---
ALLERGY CLARIFICATION: I SPOKE TO PATIENT, SHE STATES SHE IS NOT ALLERGIC TO LEVAQUIN OR LEVOFLOXAXIN
[2021-01-30] MEDS: sodium chloride 0.9% 1,000 ML 999 ML IV (11:40)
[2021-01-30] MEDS: ciprofloxacin 400 MG/200 ML PREMIX 200 MG IV (12:00)
[2021-01-30] MEDS: ondansetron 2 mg/ML SDV 2 mL 8 MG IV (12:10)
[2021-01-30 13:36] LABS: Add Urine Microscopic? YES; Bilirubin Urine Neg (Negative); Blood Urine Trace (Negative); Glucose Urine UA Norm (Normal); Ketones Urine 1+ (Negative); Leukocyte Esterase Urine Trace (Negative); Nitrate Urine Positive (Negative); Protein Urine Neg (Negative); Urine Appearance Hazy (CLEAR); Urine Color Straw (Yellow); Urobilinogen Urine Norm (Negative); pH Urine 5 (5-7)
[2021-01-30 13:37] LABS: Bacteria Urine TNTC /hpf; Mucus Urine 1+ /hpf; RBC Urine 0-4 /hpf (0-2)
[2021-01-30 13:38] LABS: Add Urine Culture? Yes
--- NOTE | 2021-01-31 17:49 | ONC FU_ITS ---
Dr. Yanes follow up note Patient: Winsome Salgado Unit #: [id number]: [id number] Dicatated By: Lena Yanes M.D.Date of Visit:Jan 30, 2021 Onc Med Follow-up/Prog Note History of Present Illness: Mrs Winsome Salgado, is a 45-year-old female with a history of abnormal chest x-ray which showed right middle lobe lung lesion for which she was referred to pulmonology for evaluation and she underwent CT scan of the chest on June 25, 2020 which showed extensive right upper lobe atelectasis/consolidation concerning for postobstructive pneumonia given the presence of spiculated 2.1 cm nodule within the right upper lobe. And extensive mediastinal and right hilar adenopathy worrisome for metastatic disease. Further evaluated with CT PET scan which was done on June 30, 2020 showed 2 x 1.8 cm right middle lobe nodule with SUV of 10.9, a 1.2 cm. Right hilar nodule has an SUV of 8. Other FDG positive nodules are obscured by right middle lobe infiltrate but are present in the right middle lobe. Malignant mediastinal adenopathy is present in the superior anterior mediastinum, right paratracheal, left paratracheal, subaortic, subcarinal, right paraesophageal territory. Multifocal osseous metastatic disease are present in the central sacrum, posterior element of T12. And index lesion in the central sacrum measured 1.3 cm with SUV of 7.6. In the right cervical level 4 territory, there is a 1.5 x 2.7 cm node has SUV of 11.4. An FDG positive cervical level 4 lymph node on July 06, 2020 she underwent bronchoscopy and transbronchial biopsy from right upper lobe showed non-small cell lung cancer, right endobronchial biopsy was positive for non-small cell cancer and station 4R lymph node positive for non-small cell carcinoma as per pathology he was consistent with invasive adenocarcinoma favor lung. Patient denies any history of hemoptysis, denies any dysphagia but complaining of off-and-on headaches and blurred vision which is progressive no focal weakness. Also complaining of lower back pain and right posterior lower rib pain, not being controlled with hydrocodone, denies any history of trauma to her lower back or hip or chest. Patient is also complaining of weight loss, she used to weigh 176 now down to 150 pounds because of poor appetite. Patient is a chronic smoker smoked about 1 to 2 pack a day but now cutting down. Denies any jaundice denies any night sweats denies any fever chills denies any shortness of breath or palpitation.Staging work-up including MRI scan of the brain which was done on July 25, 2020 showed innumerable metastatic lesions throughout the brain involving cerebellum and cerebrum, largest metastatic mass was hemorrhagic measuring 1.5 x 1.4 x 1.9 in the right parafalcine occipital lobe. 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 Keytruda/carboplatin/Taxol was restarted on November 06, 2020 Patient was treated with palliative radiation therapy to L4 and S1-2 and completed 3000 hours in 10 fraction on January 18, 2021, Her systemic therapy was held during palliative radiation therapy and patient resumed her chemo immunotherapy with Keytruda/carboplatin/Taxol on January 23, 2021 Came for follow-up, complaining of generalized weakness and fatigue, nausea vomiting and diarrhea since last week as per patient she had potato salad and since then she developed the symptoms and also complaining of lower abdominal discomfort and some dysuria but no fever.Patient went to [facility] yesterday where she was given IV fluid and was sent home, No melena or hematochezia, no hemoptysis hematemesis, no jaundice Medications: ALPRAZolam 1 Tablet (of 0.5 mg) Oral q 12 hours PRN, Aspirin 81 1 Tablet (of 81 mg) Tablet, chewable Oral daily, Cyclobenzaprine HCl 1 Tablet (of 10 mg) Oral q 8 hours PRN, Dexamethasone 1 Tablet (of 4 mg) Oral daily, Diclofenac Sodium 1 Tablet (of 75 mg) Tablet, enteric coated Oral b.i.d., HYDROcodone-Acetaminophen 1 Tablet (of 10-325 mg) Tablet Oral q 8 hours PRN, hydrOXYzine HCl 1 Tablet (of 25 mg) Oral q 8 hours PRN, Isosorbide Mononitrate ER 1 Tablet (of 60 mg) Tablet SR 24 HR Oral daily, Metoprolol Succinate ER 1 Tablet (of 25 mg) Tablet SR 24 HR Oral daily, Nitroglycerin (0.4 mg) Tablet, sublingual Sublingual Take as Directed, OxyCONTIN (20 mg) Tablet ER 12 HR Abuse-Deterrent Oral b.i.d., Sertraline HCl 1 Tablet (of 50 mg) Oral daily Allergies: Ibuprofen, Ketorolac Tromethamine, Levaquin, Morphine Sulfate, Nalbuphine HCl, Penicillins, Prochlorperazine Maleate, Ritalin, and SUMAtriptan Succinate. Review of Systems: Review of Systems is not available for this patient. Vital Signs: Performed on Jan 30, 2021 10:14 Height - 66.00 in Weight - 142.2 lbs (LOW) BSA - 1.73 sq.m BMI - 22.95 Temperature - 97.9 F (LOW) Pulse - 98 /min Respiration - 18 /min BP - 112/79 mm(hg) O2 Sat - 99 % Pain - 2 Fatigue - 9 Performance Status: 1 - No physically strenuous activity, but ambulatory and able to carry out light or sedentary work (e.g. office work, light house work). (ECOG) Physical Examination: ENMT - No mouth sores, no thrush, no jaundice but dry oral mucosa, Respiratory - Lungs are clear to auscultation, Cardiovascular - Regular rate and rhythm of heart, Abdomen - Soft, bowel sounds present, Extremities - No visible edema. Lab/Imaging: Test performed on Jan 30, 2021 10:22 Creatinine 0.5 mg/dL Cr Clearance (Est) 145.17 mL/min Test performed on Jan 29, 2021 10:57 Glucose 111 mg/dL BUN 9 mg/dL Sodium 134 mmol/L Potassium 3.7 mmol/L Chloride 100 mmol/L CO2 23 mmol/L Calcium 8.7 mg/dL WBC 6.8 10^9/L RBC 3.93 10^12/L HGB 12.1 g/dL HCT 36.1 % MCV 91.9 fl MCH 30.8 pg MCHC 33.5 g/dL RDW 19.0 % Platelet Count 275 10^9/L MPV 8.2 fL Neutrophils (Gran) 5.24 10^9/L Lymphocytes 0.86 10^9/L Monocytes 0.30 10^9/L Eosinophils 0.31 10^9/L Basophils 0.02 10^9/L Manual Segs 77 % Manual Lymphocytes 13 % Manual Monocytes 4 % Manual Eosinophils 5 % Manual Basophils 0 % Test performed on Jan 01, 2021 08:59 Ferritin 388 ng/mL Folate, Serum 20.0 ng/mL Iron 45 mcg/dL Vitamin B12 1115 pg/mL Iron Binding Capacity (TIBC) 219 mcg/dL % Iron Saturation 20.5 % UIBC 174 mcg/dL Anion Gap 18.5 eGFR 171.8 mL/min Osmolality - Calculated 289 mOsm/kg Protein, Total 6.6 g/dL Albumin 3.7 g/dL Globulin 2.9 g/dL Bilirubin, Total 0.2 mg/dL ALT (SGPT) 8 Units/L AST (SGOT) 15 Units/L Alkaline Phosphatase 130 International Units/L Neutrophil % 69.2 % Lymphocyte % 20.6 % Monocyte % 8.1 % Eosinophil % 1.4 % Basophils % 0.3 % NRBC 0.0 /100 WBC NRBC % 0 % Impression: Metastatic adenocarcinoma per bronchoscopy done on July 06, 2020 shows right upper lobe endobronchial biopsy was positive for malignancy/non-small cell carcinoma station 4R lymph node positive for non-small cell carcinoma as per pathology histology features suggestive of invasive adenocarcinoma, favor lung MRI scan of the brain done on July 25, 2020 shows innumerable metastatic lesions throughout the brain involving cerebellum and cerebrum, largest metastatic mass is hemorrhagic measuring 1.5 x 1.4 x 1.9 cm in the right parafalcine occipital lobe with a large amount of surrounding edema but no midline shift Status post whole brain radiation therapy completed on August 10, 2020 CT PET scan done on June 30, 2020 showed FDG positive right middle lobe nodule, malignant satellite nodule in the medial right lung and right hilum, extensive malignant mediastinal adenopathy with extension into right and midline cervical node territories., multifocal osseous metastatic disease, in the central sacrum and posterior element of T12 Started on Keytruda every 3 weeks and weekly carboplatin/Taxol on day 1 and 8 on September 04, 2020 History of chronic smoking, still active Weight loss due to poor appetite Progressive lower back pain with radiation to left, probably metastatic disease to the lumbar sacral area MRI scan of the spine Done on December 11, 2020 showed multiple metastatic osteophytes identified. Metastatic disease in the posterior T12 vertebral body with extension into posterior elements and mild extension and narrowing of left T11/12 subarticular recess. No cord compression. Metastatic lesion in the L4 with no cord compression. Metastatic disease in S1 and S2 with bone extension greater of S1 encroachment into central canal adequate contacting the S2 nerve roots bilaterally with narrowing of the subarticular recesses. Patient was referred to radiation oncology and she received 3000 rad in 10 fraction to her lumbar sacral area and completed her radiation therapy on January 18, 2021 with a mixed response, her chemotherapy/immunotherapy was held during treatment as she resumed her systemic treatment on January 23, 2021 Plan: Discussed with patient regarding her labs white blood count 6.8 hemoglobin 12.1 hematocrit 36.1 platelets 275,000 CMP pending, urinalysis shows evidence of urine tract infection, nitrite positive leukoesterase positive with 5-10 WBC Clinically, patient in mild to moderate distress due to, nausea vomiting and diarrhea and urinalysis shows urine tract infection, we will start on oral antibiotics ciprofloxacin 400 mg intravenously x1 and then 500 mg p.o. twice daily will obtain urine culture and adjust antibiotic based on sensitivity if needed, will also give her gentle hydration, partially available CMP shows creatinine 0.5, potassium 3.7 sodium 134 We will hold her chemotherapy today, also check her magnesium level, if low will consider supplement and then patient return to clinic in 1 week with CBC CMP, patient was advised in case there is a worsening of symptoms, she need to go to hospital for further evaluation Signed By: Lena Yanes M.D. <<Signature on File>>
[2021-02-06 12:06] LABS: Magnesium 1.4 mg/dL (1.7-2.3)
--- NOTE | 2021-02-06 18:12 | ONC FU_ITS ---
Dr. Yanes follow up note Patient: Winsome Salgado Unit #: [id number]: [id number] Dicatated By: Lena Yanes M.D.Date of Visit:Feb 06, 2021 Onc Med Follow-up/Prog Note History of Present Illness: Mrs Winsome Salgado, is a 45-year-old female with a history of abnormal chest x-ray which showed right middle lobe lung lesion for which she was referred to pulmonology for evaluation and she underwent CT scan of the chest on June 25, 2020 which showed extensive right upper lobe atelectasis/consolidation concerning for postobstructive pneumonia given the presence of spiculated 2.1 cm nodule within the right upper lobe. And extensive mediastinal and right hilar adenopathy worrisome for metastatic disease. Further evaluated with CT PET scan which was done on June 30, 2020 showed 2 x 1.8 cm right middle lobe nodule with SUV of 10.9, a 1.2 cm. Right hilar nodule has an SUV of 8. Other FDG positive nodules are obscured by right middle lobe infiltrate but are present in the right middle lobe. Malignant mediastinal adenopathy is present in the superior anterior mediastinum, right paratracheal, left paratracheal, subaortic, subcarinal, right paraesophageal territory. Multifocal osseous metastatic disease are present in the central sacrum, posterior element of T12. And index lesion in the central sacrum measured 1.3 cm with SUV of 7.6. In the right cervical level 4 territory, there is a 1.5 x 2.7 cm node has SUV of 11.4. An FDG positive cervical level 4 lymph node on July 06, 2020 she underwent bronchoscopy and transbronchial biopsy from right upper lobe showed non-small cell lung cancer, right endobronchial biopsy was positive for non-small cell cancer and station 4R lymph node positive for non-small cell carcinoma as per pathology he was consistent with invasive adenocarcinoma favor lung. Patient denies any history of hemoptysis, denies any dysphagia but complaining of off-and-on headaches and blurred vision which is progressive no focal weakness. Also complaining of lower back pain and right posterior lower rib pain, not being controlled with hydrocodone, denies any history of trauma to her lower back or hip or chest. Patient is also complaining of weight loss, she used to weigh 176 now down to 150 pounds because of poor appetite. Patient is a chronic smoker smoked about 1 to 2 pack a day but now cutting down. Denies any jaundice denies any night sweats denies any fever chills denies any shortness of breath or palpitation.Staging work-up including MRI scan of the brain which was done on July 25, 2020 showed innumerable metastatic lesions throughout the brain involving cerebellum and cerebrum, largest metastatic mass was hemorrhagic measuring 1.5 x 1.4 x 1.9 in the right parafalcine occipital lobe. 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 Keytruda/carboplatin/Taxol was restarted on November 06, 2020 Patient was treated with palliative radiation therapy to L4 and S1-2 and completed 3000 hours in 10 fraction on January 18, 2021, Her systemic therapy was held during palliative radiation therapy and patient resumed her chemo immunotherapy with Keytruda/carboplatin/Taxol on January 23, 2021 Came for follow-up, complaining of sore throat and bilateral ear fullness/pain for 3 days, as per patient her grandkids at home has strep throat, but denies any hemoptysis hematemesis, mild feverish but no chills, no dysphagia, sinus problem, her diarrhea is improving while on ciprofloxacin, recently diagnosed with urine tract infection, patient denies any dysuria now., Her chemotherapy was held last week because of urine tract infection, no it appears she may have strep throat Medications: ALPRAZolam 1 Tablet (of 0.5 mg) Oral q 12 hours PRN, Aspirin 81 1 Tablet (of 81 mg) Tablet, chewable Oral daily, Cyclobenzaprine HCl 1 Tablet (of 10 mg) Oral q 8 hours PRN, Dexamethasone 1 Tablet (of 4 mg) Oral daily, Diclofenac Sodium 1 Tablet (of 75 mg) Tablet, enteric coated Oral b.i.d., HYDROcodone-Acetaminophen 1 Tablet (of 10-325 mg) Tablet Oral q 8 hours PRN, hydrOXYzine HCl 1 Tablet (of 25 mg) Oral q 8 hours PRN, Isosorbide Mononitrate ER 1 Tablet (of 60 mg) Tablet SR 24 HR Oral daily, Metoprolol Succinate ER 1 Tablet (of 25 mg) Tablet SR 24 HR Oral daily, Nitroglycerin (0.4 mg) Tablet, sublingual Sublingual Take as Directed, OxyCONTIN (20 mg) Tablet ER 12 HR Abuse-Deterrent Oral b.i.d., Sertraline HCl 1 Tablet (of 50 mg) Oral daily Allergies: Ibuprofen, Ketorolac Tromethamine, Levaquin, Morphine Sulfate, Nalbuphine HCl, Penicillins, Prochlorperazine Maleate, Ritalin, and SUMAtriptan Succinate. Review of Systems: Review of Systems is not available for this patient. Vital Signs: Performed on Feb 06, 2021 10:25 Height - 66.00 in Weight - 143.6 lbs (HIGH) BSA - 1.74 sq.m BMI - 23.18 Temperature - 98.3 F (LOW) Pulse - 109 /min (HIGH) Respiration - 18 /min BP - 109/77 mm(hg) O2 Sat - 97 % Pain - 5 Fatigue - 5 Performance Status: 1 - No physically strenuous activity, but ambulatory and able to carry out light or sedentary work (e.g. office work, light house work). (ECOG) Physical Examination: ENMT - .Pharyngeal erythema but no pus seen, mild thrush, no mucositis, no jaundice, Respiratory - Lungs are clear to auscultation, Cardiovascular - Regular rate and rhythm of heart, Abdomen - Soft, bowel sounds present, Extremities - No visible edema. Lab/Imaging: Test performed on Feb 05, 2021 10:09 Glucose 104 mg/dL BUN 6 mg/dL Creatinine 0.5 mg/dL Cr Clearance (Est) 145.17 mL/min Sodium 141 mmol/L Potassium 3.1 mmol/L Chloride 103 mmol/L CO2 25 mmol/L Calcium 8.8 mg/dL Protein, Total 5.5 g/dL Albumin 3.3 g/dL Globulin 2.2 g/dL Bilirubin, Total 0.2 mg/dL Alkaline Phosphatase 88 International Units/L AST (SGOT) 11 International Units/L ALT (SGPT) 9 International Units/L WBC 6.0 10^9/L RBC 3.83 10^12/L HGB 12.1 g/dL HCT 36.7 % MCV 95.8 fl MCH 31.6 pg MCHC 33.0 g/dL RDW 19.1 % Platelet Count 299 10^9/L MPV 8.5 fL Neutrophils (Gran) 4.49 10^9/L Lymphocytes 0.7 10^9/L Monocytes 0.6 10^9/L Eosinophils 0.2 10^9/L Basophils 0.0 10^9/L Manual Segs 74.4 % Manual Lymphocytes 11.3 % Manual Monocytes 9.5 % Manual Eosinophils 3.8 % Manual Basophils 0.5 % Test performed on Jan 01, 2021 08:59 Ferritin 388 ng/mL Folate, Serum 20.0 ng/mL Iron 45 mcg/dL Vitamin B12 1115 pg/mL Iron Binding Capacity (TIBC) 219 mcg/dL % Iron Saturation 20.5 % UIBC 174 mcg/dL Anion Gap 18.5 eGFR 171.8 mL/min Osmolality - Calculated 289 mOsm/kg Neutrophil % 69.2 % Lymphocyte % 20.6 % Monocyte % 8.1 % Eosinophil % 1.4 % Basophils % 0.3 % NRBC 0.0 /100 WBC NRBC % 0 % Impression: Metastatic adenocarcinoma per bronchoscopy done on July 06, 2020 shows right upper lobe endobronchial biopsy was positive for malignancy/non-small cell carcinoma station 4R lymph node positive for non-small cell carcinoma as per pathology histology features suggestive of invasive adenocarcinoma, favor lung MRI scan of the brain done on July 25, 2020 shows innumerable metastatic lesions throughout the brain involving cerebellum and cerebrum, largest metastatic mass is hemorrhagic measuring 1.5 x 1.4 x 1.9 cm in the right parafalcine occipital lobe with a large amount of surrounding edema but no midline shift Status post whole brain radiation therapy completed on August 10, 2020 CT PET scan done on June 30, 2020 showed FDG positive right middle lobe nodule, malignant satellite nodule in the medial right lung and right hilum, extensive malignant mediastinal adenopathy with extension into right and midline cervical node territories., multifocal osseous metastatic disease, in the central sacrum and posterior element of T12 Started on Keytruda every 3 weeks and weekly carboplatin/Taxol on day 1 and 8 on September 04, 2020 History of chronic smoking, still active Weight loss due to poor appetite Progressive lower back pain with radiation to left, probably metastatic disease to the lumbar sacral area MRI scan of the spine Done on December 11, 2020 showed multiple metastatic osteophytes identified. Metastatic disease in the posterior T12 vertebral body with extension into posterior elements and mild extension and narrowing of left T11/12 subarticular recess. No cord compression. Metastatic lesion in the L4 with no cord compression. Metastatic disease in S1 and S2 with bone extension greater of S1 encroachment into central canal adequate contacting the S2 nerve roots bilaterally with narrowing of the subarticular recesses. Patient was referred to radiation oncology and she received 3000 rad in 10 fraction to her lumbar sacral area and completed her radiation therapy on January 18, 2021 with a mixed response, her chemotherapy/immunotherapy was held during treatment as she resumed her systemic treatment on January 23, 2021 Plan: Discussed with patient regarding her labs white blood count 6 hemoglobin 12.1 hematocrit 36.7 platelets 299,000 CMP within normal limit except potassium 3.1 Clinically, patient is doing reasonably well now complaining of sore throat, will consider Z-Gurwinder and saline gargles also give her prescription for nystatin swish and swallow, patient was advised if there is no improvement in symptoms, she need to call us and we will refer her to ENT for evaluation As far as mild hypokalemia is concerned, probably due to chronic but now improving diarrhea, will check a magnesium level, also give her liquid KCl 20 mEq p.o. daily and follow potassium level. Patient return to clinic in 1 week with CBC CMP if her symptoms improve, to resume her palliative therapy with carboplatin/Taxol/Keytruda Signed By: Lena Yanes M.D. <<Signature on File>>
[2021-02-20] MEDS: famotidine 20 mg/2 mL INJ IVP (12:39)
[2021-02-20] MEDS: sodium chloride 0.9% 250 ML 125 ML IV (12:40)
[2021-02-20] MEDS: diphenhydrAMINE 50 mg/mL SDV 1mL 25 MG IV (12:40)
[2021-02-20] MEDS: palonosetron 0.25 mg/5 mL SDV IV (12:41)
[2021-02-20] MEDS: fosaprepitant 150 MG in sodium chloride 0.9% 150 ML 300 MG IV (13:05)
[2021-02-20] MEDS: denosumab 120 mg SDV SUBCUT (16:20)
--- NOTE | 2021-03-09 09:30 | ONC FU_ITS ---
[facility] Patient Note Patient: Winsome Salgado Unit #: [id number]: [id number] Dictated By: Delores MauriceDate of Visit: Feb 20, 2021 Onc MED Follow-Up/Prog Note Chief Complaint: Non-small cell lung cancer History of Present Illness: Ms Salgado is a 45-year-old female with a history of abnormal chest x-ray which showed a right middle lobe lung lesion. She was referred to pulmonology for evaluation and she underwent CT scan of the chest on June 25, 2020. The CT reported extensive right upper lobe atelectasis/consolidation concerning for postobstructive pneumonia. Given the presence of spiculated 2.1 cm nodule within the right upper lobe and extensive mediastinal and right hilar adenopathy which was worrisome for metastatic disease, Ms Salgado had. evaluation with PET/CT scan on June 30, 2020. The PET/CT From June 30, 2020 showed 2 x 1.8 cm right middle lobe nodule with SUV of 10.9, a 1.2 cm. Right hilar nodule has an SUV of 8. Other FDG positive nodules are obscured by right middle lobe infiltrate but are present in the right middle lobe. Malignant mediastinal adenopathy is present in the superior anterior mediastinum, right paratracheal, left paratracheal, subaortic, subcarinal, right paraesophageal territory. Multifocal osseous metastatic disease are present in the central sacrum, posterior element of T12. And index lesion in the central sacrum measured 1.3 cm with SUV of 7.6. In the right cervical level 4 territory, there was a 1.5 x 2.7 cm node has SUV of 11.4. An FDG positive cervical level 4 lymph node. On July 06, 2020 she underwent bronchoscopy and transbronchial biopsy from right upper lobe showed non-small cell lung cancer, right endobronchial biopsy was positive for non-small cell cancer and station 4R lymph node positive for non-small cell carcinoma as per pathology he was consistent with invasive adenocarcinoma favor lung. Ms Salgado was referred to Dr Yanes for medical oncology consult. She denied any history of hemoptysis, denied any dysphagia but complaining of off-and-on headaches and blurred vision which is progressive no focal weakness. Also complaining of lower back pain and right posterior lower rib pain, not being controlled with hydrocodone, denies any history of trauma to her lower back or hip or chest. Patient is also complaining of weight loss, she used to weigh 176 now down to 150 pounds because of poor appetite. Patient is a chronic smoker smoked about 1 to 2 pack a day but now cutting down. Denies any jaundice denies any night sweats denies any fever chills denies any shortness of breath or palpitation Staging work-up including MRI scan of the brain which was done on July 25, 2020 showed innumerable metastatic lesions throughout the brain involving cerebellum and cerebrum, largest metastatic mass was hemorrhagic measuring 1.5 x 1.4 x 1.9 in the right parafalcine occipital lobe. With a large amount of surrounding edema but no midline shift. Ms Salgado was referred to radiation oncology and received 30 Gy between July 30, 2020 on August 10, 2020. 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 Keytruda/carboplatin/Taxol was restarted on November 06, 2020 Patient was treated with palliative radiation therapy to L4 and S1-2 and completed 3000 hours in 10 fraction on January 18, 2021, Her systemic therapy was held during palliative radiation therapy and patient resumed her chemo immunotherapy with Keytruda/carboplatin/Taxol on January 23, 2021 At her followup with Dr Yanes On February 06, 2021, she was complaining of sore throat and bilateral ear fullness/pain for 3 days, as per patient her grandkids at home has strep throat. but denies any hemoptysis hematemesis, mild feverish but no chills, no dysphagia, sinus problem, her diarrhea is improving while on ciprofloxacin, recently diagnosed with urine tract infection, patient denies any dysuria now., Her chemotherapy was held January 30, 2021 because of urine tract infection. On the February 06 visit it appeared she may have strep throat and her treatment was once again held. She elected not to get treatment last week because she just did not feel good. At this point her last chemotherapy was January 23, 2021. Mrs. Salgado is here today for follow-up. She states she is feeling better and feels that she is up for chemotherapy today. She denies any fever or chills. She has had no further sore throat. No one else in the house is sick at this point. She feels that her UTI symptoms have resolved completely. She denies any cough or hemoptysis. She has had no mouth sores, sore throat or difficulty swallowing. She denies any new shortness of breath. She denies any palpitations or chest pain. She denies any lower extremity edema. She has not had any recent diarrhea or constipation. She denies any neuropathy symptoms at this time. She states her breathing is about the same as her normal. She has not had cough or shortness of breath with exertion. Her ECOG is 1. Past Medical History: History of ovarian cancer Hypertension Past Surgical History: Appendectomy Cholecystectomy Hysterectomy/bilateral salpingectomy-oophorectomy - At age 16, had uterine cancer Right shoulder replacement Covid vaccine #3 in 2020 Colonoscopy in 2018 Allergies: Ibuprofen, Ketorolac Tromethamine, Levaquin, Morphine Sulfate, Nalbuphine HCl, Penicillins, Prochlorperazine Maleate, Ritalin, and SUMAtriptan Succinate. Medications: ALPRAZolam 1 Tablet (of 0.5 mg) Oral q 12 hours PRN Aspirin 81 1 Tablet (of 81 mg) Tablet, chewable Oral daily Cyclobenzaprine HCl 1 Tablet (of 10 mg) Oral q 8 hours PRN Dexamethasone 1 Tablet (of 4 mg) Oral daily Diclofenac Sodium 1 Tablet (of 75 mg) Tablet, enteric coated Oral b.i.d. HYDROcodone-Acetaminophen 1 Tablet (of 10-325 mg) Tablet Oral q 8 hours PRN hydrOXYzine HCl 1 Tablet (of 25 mg) Oral q 8 hours PRN Isosorbide Mononitrate ER 1 Tablet (of 60 mg) Tablet SR 24 HR Oral daily Metoprolol Succinate ER 1 Tablet (of 25 mg) Tablet SR 24 HR Oral daily Nitroglycerin (0.4 mg) Tablet, sublingual Sublingual Take as Directed OxyCONTIN (20 mg) Tablet ER 12 HR Abuse-Deterrent Oral b.i.d. Sertraline HCl 1 Tablet (of 50 mg) Oral daily Family History: Ms. Salgado's mother is alive. Ms. Salgado's father at age 74: Lung Cancer. Ms. Salgado has 1 brother who is alive. She has 2 sisters: 2 alive. Social History: Ms. Salgado is . She is a daily smoker who has smoked 0.5 packs/day for 30 years. She has no history of drinking. She has indicated exposure to the following products: cigarettes. Review Of Symptoms: <See Above> Vital Signs: Performed on Feb 20, 2021 11:51 Height - 66.00 in Weight - 143.2 lbs (LOW) BSA - 1.74 sq.m BMI - 23.11 Temperature - 98.2 F (LOW) Pulse - 118 /min (HIGH) Respiration - 18 /min BP - 95/64 mm(hg) O2 Sat - 96 % Pain - 4 Fatigue - 0,1 - No physically strenuous activity, but ambulatory and able to carry out light or sedentary work (e.g. office work, light house work). (ECOG) Physical Examination: Constitutional Alert, oriented, no acute distress. Skin pink, warm and dry. Head Normocephalic; atraumatic. Eyes Conjunctivae and sclerae are clear and without icterus. Pupils are reactive and equal. ENMT No oral exudates, ulcers, masses, thrush or mucositis. Oropharynx clear. Tongue normal. Neck Supple without masses or thyromegaly. No jugular venous distension. Hematologic/Lymphatic No petechiae or purpura. No tender or palpable lymph nodes in the cervical or supraclavicular areas. Respiratory Lungs are clear to auscultation without rhonchi or wheezing. Cardiovascular Regular rate and rhythm of heart without murmurs,clicks, gallops or rubs. Abdomen Non-tender, non-distended, no masses or ascites. Good bowel sounds noted in all quads. No guarding or rebound tenderness. No pulsatile masses. Back/Spine Non-tender to palpation. Extremities No visible deformities, no cyanosis, clubbing or edema. Musculoskeletal No tenderness or swelling, normal range of motion without obvious weakness. Integumentary No rashes or lesions. Neurologic No sensory or motor deficits, normal cerebellar function, normal gait. Psychiatric Alert and oriented times three. Coherent speech. Verbalizes understanding of our discussions today. Laboratory:Test performed on Jan 01, 2021 08:59 Ferritin 388 ng/mL Folate, Serum 20.0 ng/mL Iron 45 mcg/dL Vitamin B12 1115 pg/mL Iron Binding Capacity (TIBC) 219 mcg/dL % Iron Saturation 20.5 % UIBC 174 mcg/dL NRBC 0.0 /100 WBC Impression: Metastatic adenocarcinoma per bronchoscopy done on July 06, 2020 shows right upper lobe endobronchial biopsy was positive for malignancy/non-small cell carcinoma station 4R lymph node positive for non-small cell carcinoma as per pathology histology features suggestive of invasive adenocarcinoma, favor lung MRI scan of the brain done on July 25, 2020 shows innumerable metastatic lesions throughout the brain involving cerebellum and cerebrum, largest metastatic mass is hemorrhagic measuring 1.5 x 1.4 x 1.9 cm in the right parafalcine occipital lobe with a large amount of surrounding edema but no midline shift Status post whole brain radiation therapy completed on August 10, 2020 CT PET scan done on June 30, 2020 showed FDG positive right middle lobe nodule, malignant satellite nodule in the medial right lung and right hilum, extensive malignant mediastinal adenopathy with extension into right and midline cervical node territories., multifocal osseous metastatic disease, in the central sacrum and posterior element of T12 Started on Keytruda every 3 weeks and weekly carboplatin/Taxol on day 1 and 8 on September 04, 2020 History of chronic smoking, still active Weight loss due to poor appetite Progressive lower back pain with radiation to left, probably metastatic disease to the lumbar sacral area MRI scan of the spine Done on December 11, 2020 showed multiple metastatic osteophytes identified. Metastatic disease in the posterior T12 vertebral body with extension into posterior elements and mild extension and narrowing of left T11/12 subarticular recess. No cord compression. Metastatic lesion in the L4 with no cord compression. Metastatic disease in S1 and S2 with bone extension greater of S1 encroachment into central canal adequate contacting the S2 nerve roots bilaterally with narrowing of the subarticular recesses. Patient was referred to radiation oncology and she received 3000 rad in 10 fraction to her lumbar sacral area and completed her radiation therapy on January 18, 2021 with a mixed response, her chemotherapy/immunotherapy was held during treatment as she resumed her systemic treatment on January 23, 2021 Plan/Problems Addressed at this Visit: Metastatic adenocarcinoma per bronchoscopy done on July 06, 2020 shows right upper lobe endobronchial biopsy was positive for malignancy/non-small cell carcinoma station 4R lymph node positive for non-small cell carcinoma as per pathology histology features suggestive of invasive adenocarcinoma, favor lung MRI scan of the brain done on July 25, 2020 shows innumerable metastatic lesions throughout the brain involving cerebellum and cerebrum, largest metastatic mass is hemorrhagic measuring 1.5 x 1.4 x 1.9 cm in the right parafalcine occipital lobe with a large amount of surrounding edema but no midline shift Status post whole brain radiation therapy completed on August 10, 2020 CT PET scan done on June 30, 2020 showed FDG positive right middle lobe nodule, malignant satellite nodule in the medial right lung and right hilum, extensive malignant mediastinal adenopathy with extension into right and midline cervical node territories., multifocal osseous metastatic disease, in the central sacrum and posterior element of T12 Started on Keytruda every 3 weeks and weekly carboplatin/Taxol on day 1 and 8 on September 04, 2020 History of chronic smoking, still active Weight loss due to poor appetite Progressive lower back pain with radiation to left, probably metastatic disease to the lumbar sacral area MRI scan of the spine Done on December 11, 2020 showed multiple metastatic osteophytes identified. Metastatic disease in the posterior T12 vertebral body with extension into posterior elements and mild extension and narrowing of left T11/12 subarticular recess. No cord compression. Metastatic lesion in the L4 with no cord compression. Metastatic disease in S1 and S2 with bone extension greater of S1 encroachment into central canal adequate contacting the S2 nerve roots bilaterally with narrowing of the subarticular recesses. Patient was referred to radiation oncology and she received 3000 rad in 10 fraction to her lumbar sacral area and completed her radiation therapy on January 18, 2021 with a mixed response, her chemotherapy/immunotherapy was held during treatment as she resumed her systemic treatment on January 23, 2021. A. Proceed with cycle 7 carboplatin paclitaxel Keytruda. B. Steroid compliance confirmed. C labs from 02/19/2021 reviewed in detail and discussed with Ms. Salgado and a copy was given to her. WBC 12.8, hemoglobin 12.8, platelets 377,000, ANC is 10,240. Creatinine 0.4 LFTs are normal potassium 4.1. D. We will pursue denosumab 120 mg every 4 to 6 weeks for her bone metastasis E. We will have her return in 1 week with CBC CMP and consideration of day 8 carboplatin Taxol. She is reminded to take her premed steroids. F. She will return in 3 weeks with CBC CMP and TSH for consideration of carboplatin Taxol and Keytruda. G. Mrs. Salgado was encouraged to contact us in interim should questions or problems arise. Signed By: Delores Maurice-, AOCNP Lena Yanes MD <<Signature on File>>
== END 2021-02-24 23:59 | disposition home or self-care (01) ==
LOC: ONCMED 06:07
PROVIDERS: Internal Medicine Hematology & Oncology; PCP Family Medicine; Visit Provider Nurse Practitioner
DX: Z51.12 Encounter for antineoplastic immunotherapy (principal); Z51.11 Encounter for antineoplastic chemotherapy; C34.11 Malignant neoplasm of upper lobe, right bronchus or lung; C79.51 Secondary malignant neoplasm of bone; C79.31 Secondary malignant neoplasm of brain; F17.210 Nicotine dependence, cigarettes, uncomplicated; R63.4 Abnormal weight loss; R63.0 Anorexia; Z79.899 Other long term (current) drug therapy
CPT/HCPCS: 81001; 83735; 87086; 96361; 96365; 96367; 96372; 96375; 96413; 96417; 99214; 99215; J0744; J0897; J1100; J1200; J1453; J2405; J2469; J3490; J7030; J7040; J7050; J9045; J9267; J9271

== ENCOUNTER → 2021-03-19 09:24 | Outpatient (BNVA) | payer MEDICARE, MEDICAID, SELFPAY | PROVIDERS: PCP Family Medicine; Visit Provider Internal Medicine Hematology & Oncology | DX: C34.90 Malignant neoplasm of unspecified part of unspecified bronchus or lung (principal) | CPT/HCPCS: 80053; 85025 ==

== ENCOUNTER 2021-03-20 06:28 | Outpatient (RCR) | payer MEDICARE, MEDICAID, SELFPAY ==
[2021-02-27 08:59] LABS: Basophils % 0.2 %; Hemoglobin 12.9 g/dL (11.5-15.3); Lymphocytes # 0.6 10^3/uL (0.8-4.8); Lymphocytes % 10.5 %; Mean Corpuscular HGB Conc 33.1 g/dL (30.0-36.0); Mean Corpuscular Hemoglobin 32.5 pg (28.0-34.0); Mean Corpuscular Volume 98.2 fl (81-99); Mean Platelet Volume 8.3 fL (7.4-10.4); Monocytes % 0.8 %; Neutrophils # 4.57 10^3/uL (1.8-7.7); Neutrophils % 87.2 %; Nucleated Red Blood Cells % 0 %; Platelet Count 387 10^3/cmm (130-400); Red Blood Count 3.97 10^6/uL (4.1-5.3); White Blood Count 5.2 10^3/uL (4.0-10.0)
[2021-02-27 09:20] LABS: Alanine Aminotransferase 7 U/L (0-33); Albumin Level 3.6 g/dL (3.5-5.2); Alkaline Phosphatase 86 IU/L (35-105); Anion Gap 20.1 (5-19); Aspartate Amino Transferase 8 U/L (0-32); Blood Urea Nitrogen 5 mg/dL (6-20); Calcium 8.7 mg/dL (8.5-10.5); Carbon Dioxide 22 mmol/L (22-29); Chloride 98 mmol/L (98-107); Globulin 2.8 g/dL (1.3-4.6); Glomerular Filtration Rate 171.8 mL/min (90-130); Glucose 197 mg/dL (65-115); Osmolality Calculated 285 mOsm/kg (285-295); Potassium 4.1 mmol/L (3.5-5.1); Sodium 136 mmol/L (136-145); Total Bilirubin 0.2 mg/dL (0.15-1.2); Total Protein 6.4 g/dL (6.6-8.7)
[2021-02-27] MEDS: famotidine 20 mg/2 mL INJ IVP (10:21)
[2021-02-27] MEDS: sodium chloride 0.9% 250 ML 75 ML IV (10:21)
[2021-02-27] MEDS: diphenhydrAMINE 50 mg/mL SDV 1mL 25 MG IV (10:22)
[2021-02-27] MEDS: palonosetron 0.25 mg/5 mL SDV IV (10:26)
[2021-02-27] MEDS: fosaprepitant 150 MG in sodium chloride 0.9% 150 ML 300 MG IV (10:52)
[2021-02-27] MEDS: pegfilgrastim 6 mg/0.6 mL Kit (onpro) SUBCUT (13:43)
[2021-03-13] MEDS: alteplase 1 mg/mL SDV 2 mL 2 MG IV (09:15)
[2021-03-13 09:19] LABS: Basophils % 0.3 %; Hemoglobin 11.8 g/dL (11.5-15.3); Nucleated Red Blood Cells % 0 %
[2021-03-13 09:23] LABS: Hematocrit 36.4 % (37.0-47.0); Lymphocytes # 0.5 10^3/uL (0.8-4.8); Lymphocytes % 6.8 %; Mean Corpuscular HGB Conc 32.4 g/dL (30.0-36.0); Mean Corpuscular Hemoglobin 31.9 pg (28.0-34.0); Mean Corpuscular Volume 98.4 fl (81-99); Mean Platelet Volume 8.9 fL (7.4-10.4); Monocytes % 0.6 %; Neutrophils # 6.27 10^3/uL (1.8-7.7); Neutrophils % 91.3 %; Platelet Count 303 10^3/cmm (130-400); Red Cell Distribution Width 15.4 % (12.1-15.1); White Blood Count 6.9 10^3/uL (4.0-10.0)
[2021-03-13 09:35] LABS: Alanine Aminotransferase 8 U/L (0-33); Albumin Level 3.3 g/dL (3.5-5.2); Alkaline Phosphatase 104 IU/L (35-105); Anion Gap 20.1 (5-19); Aspartate Amino Transferase 11 U/L (0-32); Blood Urea Nitrogen 4 mg/dL (6-20); Calcium 8.4 mg/dL (8.5-10.5); Carbon Dioxide 21 mmol/L (22-29); Chloride 101 mmol/L (98-107); Globulin 2.7 g/dL (1.3-4.6); Glomerular Filtration Rate 132.8 mL/min (90-130); Glucose 214 mg/dL (65-115); Osmolality Calculated 289 mOsm/kg (285-295); Potassium 4.1 mmol/L (3.5-5.1); Sodium 138 mmol/L (136-145); Total Bilirubin 0.2 mg/dL (0.15-1.2)
[2021-03-13 09:51] LABS: Slide Review Slide Review Perform
[2021-03-13] MEDS: sodium chloride 0.9% 250 ML 75 ML IV (11:25)
[2021-03-13] MEDS: palonosetron 0.25 mg/5 mL SDV IV (11:25)
[2021-03-13] MEDS: famotidine 20 mg/2 mL INJ IVP (11:26)
[2021-03-13] MEDS: diphenhydrAMINE 50 mg/mL SDV 1mL 25 MG IV (11:28)
[2021-03-13] MEDS: OLANZapine 5 mg TABLET PO (11:35)
[2021-03-13] MEDS: fosaprepitant 150 MG in sodium chloride 0.9% 150 ML 300 MG IV (11:46)
--- NOTE | 2021-03-17 21:33 | ONC FU_ITS ---
[facility] Patient Note Patient: Winsome Salgado Unit #: [id number]: 1975 Dictated By: Delores MauriceDate of Visit: Mar 13, 2021 Onc MED Follow-Up/Prog Note Chief Complaint: Non-small cell lung cancer History of Present Illness: Ms Salgado is a 45-year-old female with a history of abnormal chest x-ray which showed a right middle lobe lung lesion. She was referred to pulmonology for evaluation and she underwent CT scan of the chest on June 25, 2020. The CT reported extensive right upper lobe atelectasis/consolidation concerning for postobstructive pneumonia. Given the presence of spiculated 2.1 cm nodule within the right upper lobe and extensive mediastinal and right hilar adenopathy which was worrisome for metastatic disease, Ms Salgado had. evaluation with PET/CT scan on June 30, 2020. The PET/CT From June 30, 2020 showed 2 x 1.8 cm right middle lobe nodule with SUV of 10.9, a 1.2 cm. Right hilar nodule has an SUV of 8. Other FDG positive nodules are obscured by right middle lobe infiltrate but are present in the right middle lobe. Malignant mediastinal adenopathy is present in the superior anterior mediastinum, right paratracheal, left paratracheal, subaortic, subcarinal, right paraesophageal territory. Multifocal osseous metastatic disease are present in the central sacrum, posterior element of T12. And index lesion in the central sacrum measured 1.3 cm with SUV of 7.6. In the right cervical level 4 territory, there was a 1.5 x 2.7 cm node has SUV of 11.4. An FDG positive cervical level 4 lymph node. On July 06, 2020 she underwent bronchoscopy and transbronchial biopsy from right upper lobe showed non-small cell lung cancer, right endobronchial biopsy was positive for non-small cell cancer and station 4R lymph node positive for non-small cell carcinoma as per pathology he was consistent with invasive adenocarcinoma favor lung. Ms Salgado was referred to Dr Yanes for medical oncology consult. She denied any history of hemoptysis, denied any dysphagia but complaining of off-and-on headaches and blurred vision which is progressive no focal weakness. Also complaining of lower back pain and right posterior lower rib pain, not being controlled with hydrocodone, denies any history of trauma to her lower back or hip or chest. Patient is also complaining of weight loss, she used to weigh 176 now down to 150 pounds because of poor appetite. Patient is a chronic smoker smoked about 1 to 2 pack a day but now cutting down. Denies any jaundice denies any night sweats denies any fever chills denies any shortness of breath or palpitation Staging work-up including MRI scan of the brain which was done on July 25, 2020 showed innumerable metastatic lesions throughout the brain involving cerebellum and cerebrum, largest metastatic mass was hemorrhagic measuring 1.5 x 1.4 x 1.9 in the right parafalcine occipital lobe. With a large amount of surrounding edema but no midline shift. Ms Salgado was referred to radiation oncology and received 30 Gy between July 30, 2020 on August 10, 2020. 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 Keytruda/carboplatin/Taxol was restarted on November 06, 2020 Patient was treated with palliative radiation therapy to L4 and S1-2 and completed 3000 hours in 10 fraction on January 18, 2021, Her systemic therapy was held during palliative radiation therapy and patient resumed her chemo immunotherapy with Keytruda/carboplatin/Taxol on January 23, 2021 At her followup with Dr Yanes On February 06, 2021, she was complaining of sore throat and bilateral ear fullness/pain for 3 days, as per patient her grandkids at home has strep throat. but denies any hemoptysis hematemesis, mild feverish but no chills, no dysphagia, sinus problem, her diarrhea is improving while on ciprofloxacin, recently diagnosed with urine tract infection, patient denies any dysuria now., Her chemotherapy was held January 30, 2021 because of urine tract infection. On the February 06 visit it appeared she may have strep throat and her treatment was once again held. She elected not to get treatment last week because she just did not feel good. At this point her last chemotherapy was January 23, 2021. Mrs. Salgado is here today for follow-up. She states she is feeling better overall but is having some peristent sinus drainage and productive cough. She states she has had a few mouth sores off and on but they are better for the most part. The corners of her mouth are still pretty sore and breaking open at times . She denies any palpitations or chest pain. She denies any lower extremity edema. She has not had any recent diarrhea or constipation. She denies any neuropathy symptoms at this time. She states her breathing is about the same as her normal. She has not shortness of breath with exertion. She states she still having some nausea after treatment. She states that generally the day after chemo that is the worst. She states that her nausea meds do help quite a bit. She states she still has some nausea that affects her eating at times but no vomiting. Her ECOG is 1. She states she wants to pursue chemotherapy today as she has missed some in the past. She states she does not feel that bad at this point. Past Medical History: History of ovarian cancer Hypertension Past Surgical History: Appendectomy Cholecystectomy Hysterectomy/bilateral salpingectomy-oophorectomy - At age 16, had uterine cancer Right shoulder replacement Covid vaccine #3 in 2020 Colonoscopy in 2018 Allergies: Ibuprofen, Ketorolac Tromethamine, Levaquin, Morphine Sulfate, Nalbuphine HCl, Penicillins, Prochlorperazine Maleate, Ritalin, and SUMAtriptan Succinate. Medications: ALPRAZolam 1 Tablet (of 0.5 mg) Oral q 12 hours PRN Aspirin 81 1 Tablet (of 81 mg) Tablet, chewable Oral daily Cyclobenzaprine HCl 1 Tablet (of 10 mg) Oral q 8 hours PRN Dexamethasone 1 Tablet (of 4 mg) Oral daily Diclofenac Sodium 1 Tablet (of 75 mg) Tablet, enteric coated Oral b.i.d. HYDROcodone-Acetaminophen 1 Tablet (of 10-325 mg) Tablet Oral q 8 hours PRN hydrOXYzine HCl 1 Tablet (of 25 mg) Oral q 8 hours PRN Isosorbide Mononitrate ER 1 Tablet (of 60 mg) Tablet SR 24 HR Oral daily Metoprolol Succinate ER 1 Tablet (of 25 mg) Tablet SR 24 HR Oral daily Nitroglycerin (0.4 mg) Tablet, sublingual Sublingual Take as Directed OxyCONTIN (20 mg) Tablet ER 12 HR Abuse-Deterrent Oral b.i.d. Sertraline HCl 1 Tablet (of 50 mg) Oral daily Family History: Ms. Salgado's mother is alive. Ms. Salgado's father at age 74: Lung Cancer. Ms. Salgado has 1 brother who is alive. She has 2 sisters: 2 alive. Social History: Ms. Salgado is . She is a daily smoker who has smoked 0.5 packs/day for 30 years. She has no history of drinking. She has indicated exposure to the following products: cigarettes. Review Of Symptoms: <See Above> Vital Signs: Performed on Mar 13, 2021 10:34 Height - 66.00 in Weight - 147.2 lbs (HIGH) BSA - 1.76 sq.m BMI - 23.76 Temperature - 98.9 F (HIGH) Pulse - 101 /min (HIGH) Respiration - 18 /min BP - 99/66 mm(hg) O2 Sat - 95 % (LOW) Pain - 5 Fatigue - 5,1 - No physically strenuous activity, but ambulatory and able to carry out light or sedentary work (e.g. office work, light house work). (ECOG) Physical Examination: Constitutional Alert, oriented, no acute distress. Skin pink, warm and dry. Head Normocephalic; atraumatic. Eyes Conjunctivae and sclerae are clear and without icterus. Pupils are reactive and equal. ENMT No oral exudates, ulcers, masses, thrush or mucositis. Oropharynx clear. Tongue bright red on tip, with angular Kelitis noted on both sides of mouth/lips. Neck Supple without masses or thyromegaly. No jugular venous distension. Hematologic/Lymphatic No petechiae or purpura. No tender or palpable lymph nodes in the cervical or supraclavicular areas. Respiratory Lungs are clear to auscultation without rhonchi or wheezing. Cardiovascular Regular rate and rhythm of heart without murmurs,clicks, gallops or rubs. Abdomen Non-tender, non-distended, no masses or ascites. Good bowel sounds noted in all quads. No guarding or rebound tenderness. No pulsatile masses. Back/Spine Non-tender to palpation. Extremities No visible deformities, no cyanosis, clubbing or edema. Musculoskeletal No tenderness or swelling, normal range of motion without obvious weakness. Integumentary No rashes or lesions. Neurologic No sensory or motor deficits, normal cerebellar function, normal gait. Psychiatric Alert and oriented times three. Coherent speech. Verbalizes understanding of our discussions today. Laboratory:Test performed on Mar 13, 2021 09:39 Creatinine 0.5 mg/dL Cr Clearance (Est) 144.17 mL/min Test performed on Mar 13, 2021 09:00 Sodium 138 mmol/L Potassium 4.1 mmol/L Chloride 101 mmol/L CO2 21 mmol/L Anion Gap 20.1 BUN 4 mg/dL eGFR 132.8 mL/min Glucose 214 mg/dL Osmolality - Calculated 289 mOsm/kg Calcium 8.4 mg/dL Protein, Total 6.0 g/dL Albumin 3.3 g/dL Globulin 2.7 g/dL Bilirubin, Total 0.2 mg/dL ALT (SGPT) 8 U/L AST (SGOT) 11 U/L Alkaline Phosphatase 104 IU/L WBC 6.9 10 3/uL RBC 3.70 10 6/uL HGB 11.8 g/dL HCT 36.4 % MCV 98.4 fl MCH 31.9 pg MCHC 32.4 g/dL RDW 15.4 % Platelet Count 303 10 3/cmm MPV 8.9 fL Neutrophils 6.27 10 3/uL Lymphocytes 0.5 10 3/uL Monocytes 0.0 10 3/uL Eosinophils 0.0 10 3/uL Basophils 0.0 10 3/uL Neutrophil % 91.3 % Lymphocyte % 6.8 % Monocyte % 0.6 % Eosinophil % 0.0 % Basophils % 0.3 % NRBC % 0 % CBC Slide Review Slide Review Perform SLIDE REVIEW AGREES WITH AUTOMATED RESULTS Test performed on Feb 05, 2021 10:09 Manual Segs 74.4 % Manual Lymphocytes 11.3 % Manual Monocytes 9.5 % Manual Eosinophils 3.8 % Manual Basophils 0.5 % Test performed on Jan 01, 2021 08:59 Ferritin 388 ng/mL Folate, Serum 20.0 ng/mL Iron 45 mcg/dL Vitamin B12 1115 pg/mL Iron Binding Capacity (TIBC) 219 mcg/dL % Iron Saturation 20.5 % UIBC 174 mcg/dL NRBC 0.0 /100 WBC Impression: Metastatic adenocarcinoma per bronchoscopy done on July 06, 2020 shows right upper lobe endobronchial biopsy was positive for malignancy/non-small cell carcinoma station 4R lymph node positive for non-small cell carcinoma as per pathology histology features suggestive of invasive adenocarcinoma, favor lung MRI scan of the brain done on July 25, 2020 shows innumerable metastatic lesions throughout the brain involving cerebellum and cerebrum, largest metastatic mass is hemorrhagic measuring 1.5 x 1.4 x 1.9 cm in the right parafalcine occipital lobe with a large amount of surrounding edema but no midline shift Status post whole brain radiation therapy completed on August 10, 2020 CT PET scan done on June 30, 2020 showed FDG positive right middle lobe nodule, malignant satellite nodule in the medial right lung and right hilum, extensive malignant mediastinal adenopathy with extension into right and midline cervical node territories., multifocal osseous metastatic disease, in the central sacrum and posterior element of T12 Plan/Problems Addressed at this Visit: Metastatic adenocarcinoma per bronchoscopy done on July 06, 2020 shows right upper lobe endobronchial biopsy was positive for malignancy/non-small cell carcinoma station 4R lymph node positive for non-small cell carcinoma as per pathology histology features suggestive of invasive adenocarcinoma, favor lung MRI scan of the brain done on July 25, 2020 shows innumerable metastatic lesions throughout the brain involving cerebellum and cerebrum, largest metastatic mass is hemorrhagic measuring 1.5 x 1.4 x 1.9 cm in the right parafalcine occipital lobe with a large amount of surrounding edema but no midline shift Status post whole brain radiation therapy completed on August 10, 2020 CT PET scan done on June 30, 2020 showed FDG positive right middle lobe nodule, malignant satellite nodule in the medial right lung and right hilum, extensive malignant mediastinal adenopathy with extension into right and midline cervical node territories., multifocal osseous metastatic disease, in the central sacrum and posterior element of T12 Started on Keytruda every 3 weeks and weekly carboplatin/Taxol on day 1 and 8 on September 04, 2020 History of chronic smoking, still active Weight loss due to poor appetite Progressive lower back pain with radiation to left, probably metastatic disease to the lumbar sacral area MRI scan of the spine Done on December 11, 2020 showed multiple metastatic osteophytes identified. Metastatic disease in the posterior T12 vertebral body with extension into posterior elements and mild extension and narrowing of left T11/12 subarticular recess. No cord compression. Metastatic lesion in the L4 with no cord compression. Metastatic disease in S1 and S2 with bone extension greater of S1 encroachment into central canal adequate contacting the S2 nerve roots bilaterally with narrowing of the subarticular recesses. Patient was referred to radiation oncology and she received 3000 rad in 10 fraction to her lumbar sacral area and completed her radiation therapy on January 18, 2021 with a mixed response, her chemotherapy/immunotherapy was held during treatment. She resumed her systemic treatment on January 23, 2021. A. Proceed with cycle 8 Day 1 carboplatin paclitaxel Keytruda. She did receive day 1 and 8 with cycle 7 with the last treatment being on February 27, 2021. She had had her last treatment prior to that on January 23, 2021 which was considered cycle 6-day 1 and she did not have a day 8 at that point. She did not have a day 8 with cycle 5. She did have day 1 and 8 with cycle 1, 3 and 4, but only had day 1 with cycle 2. B. Steroid compliance confirmed. C. Today's labs were reviewed in detail and discussed with Mrs. Salgado and a copy was given to her. WBC 6.9, hemoglobin 11.8, platelets 303,000, ANC is 6270. Potassium 4.1 creatinine 0.5 and LFTs are normal. Random glucose was 214???steroid-induced. I did request a TSH be added to the blood in the lab today if possible. This is for her immunotherapy monitoring. D. We will pursue denosumab 120 mg every 4 to 6 weeks for her bone metastasis-Last given on February 20, 2021. E. We will have her return in 1 week with CBC CMP and consideration of day 8 carboplatin Taxol. She was reminded to take her premed steroids. F. She will return in 3 weeks with CBC CMP and TSH for consideration of carboplatin Taxol and Keytruda. G. Mrs. Salgado was encouraged to contact us in interim should questions or problems arise. 2. Sinus congestion/angular cheilitis A. We will have her have a zinc pack on hand in the event that she runs fever/chills or has worsening/thickening of her sinus drainage or sputum. B. famciclovir 500 mg 1 3 times daily for the angular cheilitis. She is advised that if it is better she may not need to take it but I am concerned that it may worsen after treatment today. She is advised to keep it moist with Carmex. Signed By: Delores Maurice-, AOCNP Lena Yanes MD <<Signature on File>>
[2021-03-20] MEDS: sodium chloride 0.9% 250 ML 75 ML IV (09:15)
[2021-03-20] MEDS: famotidine 20 mg/2 mL INJ IVP (09:20)
[2021-03-20] MEDS: diphenhydrAMINE 50 mg/mL SDV 1mL 25 MG IV (09:22)
[2021-03-20] MEDS: palonosetron 0.25 mg/5 mL SDV IV (09:25)
[2021-03-20] MEDS: fosaprepitant 150 MG in sodium chloride 0.9% 150 ML 300 MG IV (09:40)
[2021-03-20] MEDS: denosumab 120 mg SDV SUBCUT (11:14)
[2021-03-20] MEDS: pegfilgrastim 6 mg/0.6 mL Kit (onpro) SUBCUT (12:00)
--- NOTE | 2021-03-20 16:54 | ONC FU_ITS ---
Dr. Yanes follow up note Patient: Winsome Salgado Unit #: [id number]: 1975 Dicatated By: Lena Yanes M.D.Date of Visit:Mar 20, 2021 Onc Med Follow-up/Prog Note History of Present Illness: Ms Salgado is a 45-year-old female with a history of abnormal chest x-ray which showed a right middle lobe lung lesion. She was referred to pulmonology for evaluation and she underwent CT scan of the chest on June 25, 2020. The CT reported extensive right upper lobe atelectasis/consolidation concerning for postobstructive pneumonia. Given the presence of spiculated 2.1 cm nodule within the right upper lobe and extensive mediastinal and right hilar adenopathy which was worrisome for metastatic disease, Ms Salgado had. evaluation with PET/CT scan on June 30, 2020. The PET/CT From June 30, 2020 showed 2 x 1.8 cm right middle lobe nodule with SUV of 10.9, a 1.2 cm. Right hilar nodule has an SUV of 8. Other FDG positive nodules are obscured by right middle lobe infiltrate but are present in the right middle lobe. Malignant mediastinal adenopathy is present in the superior anterior mediastinum, right paratracheal, left paratracheal, subaortic, subcarinal, right paraesophageal territory. Multifocal osseous metastatic disease are present in the central sacrum, posterior element of T12. And index lesion in the central sacrum measured 1.3 cm with SUV of 7.6. In the right cervical level 4 territory, there was a 1.5 x 2.7 cm node has SUV of 11.4. An FDG positive cervical level 4 lymph node. On July 06, 2020 she underwent bronchoscopy and transbronchial biopsy from right upper lobe showed non-small cell lung cancer, right endobronchial biopsy was positive for non-small cell cancer and station 4R lymph node positive for non-small cell carcinoma as per pathology he was consistent with invasive adenocarcinoma favor lung. Ms Salgado was referred to Dr Yanes for medical oncology consult. She denied any history of hemoptysis, denied any dysphagia but complaining of off-and-on headaches and blurred vision which is progressive no focal weakness. Also complaining of lower back pain and right posterior lower rib pain, not being controlled with hydrocodone, denies any history of trauma to her lower back or hip or chest. Patient is also complaining of weight loss, she used to weigh 176 now down to 150 pounds because of poor appetite. Patient is a chronic smoker smoked about 1 to 2 pack a day but now cutting down. Denies any jaundice denies any night sweats denies any fever chills denies any shortness of breath or palpitation Staging work-up including MRI scan of the brain which was done on July 25, 2020 showed innumerable metastatic lesions throughout the brain involving cerebellum and cerebrum, largest metastatic mass was hemorrhagic measuring 1.5 x 1.4 x 1.9 in the right parafalcine occipital lobe. With a large amount of surrounding edema but no midline shift. Ms Salgado was referred to radiation oncology and received 30 Gy between July 30, 2020 on August 10, 2020. 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 Keytruda/carboplatin/Taxol was restarted on November 06, 2020 Patient was treated with palliative radiation therapy to L4 and S1-2 and completed 3000 hours in 10 fraction on January 18, 2021, Her systemic therapy was held during palliative radiation therapy and patient resumed her chemo immunotherapy with Keytruda/carboplatin/Taxol on January 23, 2021 At her followup with On February 06, 2021, she was complaining of sore throat and bilateral ear fullness/pain for 3 days, as per patient her grandkids at home has strep throat. but denies any hemoptysis hematemesis, mild feverish but no chills, no dysphagia, sinus problem, her diarrhea is improving while on ciprofloxacin, recently diagnosed with urine tract infection, patient denies any dysuria now., Her chemotherapy was held January 30, 2021 because of urine tract infection. On the February 06 visit it appeared she may have strep throat and her treatment was once again held. She elected not to get treatment last week because she just did not feel good. At this point her last chemotherapy was January 23, 2021. Came for follow-up, denies any specific complaints, no fever chills, no nausea or vomiting, no diarrhea constipation, no melena hematochezia, no hemoptysis hematemesis, no peripheral neuropathy, tolerating chemo immunotherapy with Keytruda/carboplatin/Taxol well Medications: ALPRAZolam 1 Tablet (of 0.5 mg) Oral q 12 hours PRN, Aspirin 81 1 Tablet (of 81 mg) Tablet, chewable Oral daily, Cyclobenzaprine HCl 1 Tablet (of 10 mg) Oral q 8 hours PRN, Dexamethasone 1 Tablet (of 4 mg) Oral daily, Diclofenac Sodium 1 Tablet (of 75 mg) Tablet, enteric coated Oral b.i.d., HYDROcodone-Acetaminophen 1 Tablet (of 10-325 mg) Tablet Oral q 8 hours PRN, hydrOXYzine HCl 1 Tablet (of 25 mg) Oral q 8 hours PRN, Isosorbide Mononitrate ER 1 Tablet (of 60 mg) Tablet SR 24 HR Oral daily, Metoprolol Succinate ER 1 Tablet (of 25 mg) Tablet SR 24 HR Oral daily, Nitroglycerin (0.4 mg) Tablet, sublingual Sublingual Take as Directed, OxyCONTIN (20 mg) Tablet ER 12 HR Abuse-Deterrent Oral b.i.d., Sertraline HCl 1 Tablet (of 50 mg) Oral daily Allergies: Ibuprofen, Ketorolac Tromethamine, Levaquin, Morphine Sulfate, Nalbuphine HCl, Penicillins, Prochlorperazine Maleate, Ritalin, and SUMAtriptan Succinate. Review of Systems: Review of Systems is not available for this patient. Vital Signs: Performed on Mar 20, 2021 08:29 Height - 66.00 in Weight - 150.2 lbs (HIGH) BSA - 1.77 sq.m BMI - 24.24 Temperature - 99.1 F (HIGH) Pulse - 108 /min (HIGH) Respiration - 16 /min BP - 105/72 mm(hg) O2 Sat - 98 % Pain - 0 Fatigue - 0 Performance Status: 0 - Fully active, able to carry on all predisease activities without restrictions. (ECOG) Physical Examination: ENMT - No mouth sores, no thrush, no jaundice, Respiratory - Lungs are clear to auscultation, Cardiovascular - Regular rate and rhythm of heart, Abdomen - Soft, bowel sounds present, Extremities - No visible edema. Lab/Imaging: Test performed on Mar 20, 2021 09:00 Creatinine 0.4 mg/dL Cr Clearance (Est) 185.24 mL/min Test performed on Mar 19, 2021 09:24 Glucose 111 mg/dL BUN 5 mg/dL Sodium 135 mmol/L Potassium 4 mmol/L Chloride 97 mmol/L CO2 22 mmol/L Calcium 8.5 mg/dL Protein, Total 6 g/dL Albumin 3.4 g/dL Globulin 2.6 g/dL Bilirubin, Total 0.2 mg/dL Alkaline Phosphatase 71 International Units/L AST (SGOT) 11 International Units/L ALT (SGPT) 7 International Units/L WBC 5.3 10^9/L RBC 3.35 10^12/L HGB 11.1 g/dL HCT 34 % MCV 101.5 fl MCH 33.1 pg MCHC 32.6 g/dL RDW 15.4 % Platelet Count 251 10^9/L MPV 9.2 fL Neutrophils (Gran) 3.78 10^9/L Lymphocytes 1.0176 10^9/L Monocytes 0.4293 10^9/L Eosinophils 0.0318 10^9/L Basophils 0.0212 10^9/L Test performed on Mar 13, 2021 09:00 Anion Gap 20.1 eGFR 132.8 mL/min Osmolality - Calculated 289 mOsm/kg Neutrophil % 91.3 % Lymphocyte % 6.8 % Monocyte % 0.6 % Eosinophil % 0.0 % Basophils % 0.3 % NRBC % 0 % CBC Slide Review Slide Review Perform SLIDE REVIEW AGREES WITH AUTOMATED RESULTS Test performed on Feb 05, 2021 10:09 Manual Segs 74.4 % Manual Lymphocytes 11.3 % Manual Monocytes 9.5 % Manual Eosinophils 3.8 % Manual Basophils 0.5 % Test performed on Jan 01, 2021 08:59 Ferritin 388 ng/mL Folate, Serum 20.0 ng/mL Iron 45 mcg/dL Vitamin B12 1115 pg/mL Iron Binding Capacity (TIBC) 219 mcg/dL % Iron Saturation 20.5 % UIBC 174 mcg/dL NRBC 0.0 /100 WBC Impression: Metastatic adenocarcinoma per bronchoscopy done on July 06, 2020 shows right upper lobe endobronchial biopsy was positive for malignancy/non-small cell carcinoma station 4R lymph node positive for non-small cell carcinoma as per pathology histology features suggestive of invasive adenocarcinoma, favor lung MRI scan of the brain done on July 25, 2020 shows innumerable metastatic lesions throughout the brain involving cerebellum and cerebrum, largest metastatic mass is hemorrhagic measuring 1.5 x 1.4 x 1.9 cm in the right parafalcine occipital lobe with a large amount of surrounding edema but no midline shift Status post whole brain radiation therapy completed on August 10, 2020 CT PET scan done on June 30, 2020 showed FDG positive right middle lobe nodule, malignant satellite nodule in the medial right lung and right hilum, extensive malignant mediastinal adenopathy with extension into right and midline cervical node territories., multifocal osseous metastatic disease, in the central sacrum and posterior element of T12 Plan: Discussed with patient regarding her labs white blood count Clinically, patient doing well with no new signs symptoms history of disease progression, will proceed with day 8 carboplatin/Taxol and then she will return to clinic in 2 weeks with CBC CMP and follow-up CT PET scan to assess disease status, if it shows good response, at that time we will discontinue chemotherapy but continue with maintenance immunotherapy with Keytruda. Signed By: Lena Yanes M.D. <<Signature on File>>
== END 2021-03-26 23:59 | disposition home or self-care (01) ==
LOC: ONCMED 06:28
PROVIDERS: Nurse Practitioner; PCP Family Medicine; Visit Provider Internal Medicine Hematology & Oncology
DX: Z51.12 Encounter for antineoplastic immunotherapy (principal); Z51.11 Encounter for antineoplastic chemotherapy; C34.11 Malignant neoplasm of upper lobe, right bronchus or lung; C77.8 Secondary and unspecified malignant neoplasm of lymph nodes of multiple regions; C79.31 Secondary malignant neoplasm of brain; C79.51 Secondary malignant neoplasm of bone; F17.210 Nicotine dependence, cigarettes, uncomplicated; R63.4 Abnormal weight loss; M54.59 Other low back pain; G89.3 Neoplasm related pain (acute) (chronic); K13.0 Diseases of lips; Z79.52 Long term (current) use of systemic steroids; Z79.899 Other long term (current) drug therapy
CPT/HCPCS: 36593; 80053; 85025; 96367; 96372; 96375; 96377; 96413; 96417; 99215; J0897; J1100; J1200; J1453; J1642; J2469; J2505; J2997; J3490; J7030; J7040; J7050; J9045; J9267; J9271

== ENCOUNTER → 2021-04-01 09:19 | Outpatient (BNVA) | payer MEDICARE, MEDICAID, SELFPAY | PROVIDERS: PCP Family Medicine; Visit Provider Internal Medicine Hematology & Oncology | DX: C34.90 Malignant neoplasm of unspecified part of unspecified bronchus or lung (principal) | CPT/HCPCS: 80053; 85025 ==

== ENCOUNTER 2021-04-10 06:20 | Outpatient (RCR) | payer MEDICARE, MEDICAID, SELFPAY ==
[2021-04-03] MEDS: HYDROcodone-acetaminophen 10-325 mg Tablet 2 TAB PO (10:25)
[2021-04-03] MEDS: famotidine 20 mg/2 mL INJ IVP (10:44)
[2021-04-03] MEDS: sodium chloride 0.9% 250 ML 125 ML IV (10:44)
[2021-04-03] MEDS: OLANZapine 5 mg TABLET PO (10:44)
[2021-04-03] MEDS: diphenhydrAMINE 50 mg/mL SDV 1mL 25 MG IV (10:46)
[2021-04-03] MEDS: fosaprepitant 150 MG in sodium chloride 0.9% 150 ML 300 MG IV (10:50)
[2021-04-03] MEDS: palonosetron 0.25 mg/5 mL SDV IVP (11:11)
[2021-04-10 09:52] LABS: Basophils % 0.2 %; Hematocrit 32.1 % (37.0-47.0); Hemoglobin 10.9 g/dL (11.5-15.3); Lymphocytes # 0.5 10^3/uL (0.8-4.8); Lymphocytes % 9.6 %; Mean Platelet Volume 8.8 fL (7.4-10.4); Monocytes # 0.1 10^3/uL (0.2-0.9); Monocytes % 0.9 %; Neutrophils # 4.76 10^3/uL (1.8-7.7); Neutrophils % 87.8 %; Nucleated Red Blood Cells % 0 %; Platelet Count 348 10^3/cmm (130-400); Red Blood Count 3.21 10^6/uL (4.1-5.3); Red Cell Distribution Width 16.5 % (12.1-15.1); White Blood Count 5.4 10^3/uL (4.0-10.0)
[2021-04-10 10:21] LABS: Alanine Aminotransferase 6 U/L (0-33); Albumin Level 3.8 g/dL (3.5-5.2); Alkaline Phosphatase 80 IU/L (35-105); Anion Gap 23.4 (5-19); Aspartate Amino Transferase 8 U/L (0-32); Blood Urea Nitrogen 4 mg/dL (6-20); Carbon Dioxide 20 mmol/L (22-29); Chloride 98 mmol/L (98-107); Globulin 2.3 g/dL (1.3-4.6); Glomerular Filtration Rate 171.8 mL/min (90-130); Glucose 217 mg/dL (65-115); Osmolality Calculated 287 mOsm/kg (285-295); Potassium 4.4 mmol/L (3.5-5.1); Sodium 137 mmol/L (136-145); Thyroid Stimulating Hormone 0.48 uIU/mL (0.27-4.20); Total Bilirubin 0.2 mg/dL (0.15-1.2); Total Protein 6.1 g/dL (6.6-8.7)
--- NOTE | 2021-04-11 09:55 | ONC FU_ITS ---
Dr. Yanes follow up note Patient: Winsome Salgado Unit #: [id number]: 1975 Dicatated By: Lena Yanes M.D.Date of Visit:Apr 10, 2021 Onc Med Follow-up/Prog Note History of Present Illness: Ms Salgado is a 45-year-old female with a history of abnormal chest x-ray which showed a right middle lobe lung lesion. She was referred to pulmonology for evaluation and she underwent CT scan of the chest on June 25, 2020. The CT reported extensive right upper lobe atelectasis/consolidation concerning for postobstructive pneumonia. Given the presence of spiculated 2.1 cm nodule within the right upper lobe and extensive mediastinal and right hilar adenopathy which was worrisome for metastatic disease, Ms Salgado had. evaluation with PET/CT scan on June 30, 2020. The PET/CT From June 30, 2020 showed 2 x 1.8 cm right middle lobe nodule with SUV of 10.9, a 1.2 cm. Right hilar nodule has an SUV of 8. Other FDG positive nodules are obscured by right middle lobe infiltrate but are present in the right middle lobe. Malignant mediastinal adenopathy is present in the superior anterior mediastinum, right paratracheal, left paratracheal, subaortic, subcarinal, right paraesophageal territory. Multifocal osseous metastatic disease are present in the central sacrum, posterior element of T12. And index lesion in the central sacrum measured 1.3 cm with SUV of 7.6. In the right cervical level 4 territory, there was a 1.5 x 2.7 cm node has SUV of 11.4. An FDG positive cervical level 4 lymph node. On July 06, 2020 she underwent bronchoscopy and transbronchial biopsy from right upper lobe showed non-small cell lung cancer, right endobronchial biopsy was positive for non-small cell cancer and station 4R lymph node positive for non-small cell carcinoma as per pathology he was consistent with invasive adenocarcinoma favor lung. Ms Salgado was referred to Dr Yanes for medical oncology consult. She denied any history of hemoptysis, denied any dysphagia but complaining of off-and-on headaches and blurred vision which is progressive no focal weakness. Also complaining of lower back pain and right posterior lower rib pain, not being controlled with hydrocodone, denies any history of trauma to her lower back or hip or chest. Patient is also complaining of weight loss, she used to weigh 176 now down to 150 pounds because of poor appetite. Patient is a chronic smoker smoked about 1 to 2 pack a day but now cutting down. Denies any jaundice denies any night sweats denies any fever chills denies any shortness of breath or palpitation Staging work-up including MRI scan of the brain which was done on July 25, 2020 showed innumerable metastatic lesions throughout the brain involving cerebellum and cerebrum, largest metastatic mass was hemorrhagic measuring 1.5 x 1.4 x 1.9 in the right parafalcine occipital lobe. With a large amount of surrounding edema but no midline shift. Ms Salgado was referred to radiation oncology and received 30 Gy between July 30, 2020 on August 10, 2020. 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 Keytruda/carboplatin/Taxol was restarted on November 06, 2020 Patient was treated with palliative radiation therapy to L4 and S1-2 and completed 3000 hours in 10 fraction on January 18, 2021, Her systemic therapy was held during palliative radiation therapy and patient resumed her chemo immunotherapy with Keytruda/carboplatin/Taxol on January 23, 2021 At her followup with On February 06, 2021, she was complaining of sore throat and bilateral ear fullness/pain for 3 days, as per patient her grandkids at home has strep throat. but denies any hemoptysis hematemesis, mild feverish but no chills, no dysphagia, sinus problem, her diarrhea is improving while on ciprofloxacin, recently diagnosed with urine tract infection, patient denies any dysuria now., Her chemotherapy was held January 30, 2021 because of urine tract infection. On the February 06 visit it appeared she may have strep throat and her treatment was once again held. She elected not to get treatment last week because she just did not feel good. At this point her last chemotherapy was January 23, 2021. Follow-up CT PET scan done on March 30, 2021 shows improvement in right upper lobe mass with atelectasis, residual activity in the right upper lobe nodule which is about 1 cm in size. No change in right hilar, mediastinal, thoracic inlet and the right cervical lymph nodes, SUV about 7.8 compared to 7.7 previously multifocal osseous metastatic disease largely stable, although there is improvement in T12 lesion and progression is noted in the lesion in acetabulum,, diffuse activity in scapula, proximal humerus and sternum and clavicle is more likely reactive .Based on CT PET scan finding and patient preference chemotherapy with carboplatin/Taxol was discontinued but continued with maintenance Keytruda every 3 weeks along with monthly Xgeva Came for follow-up, denies any specific complaint except pain in her left hip which is under control with current pain medication, also complaining of off and on headaches and stuffy sinuses otherwise no blurred vision or double vision, no fever chills, no nausea or vomiting, no diarrhea constipation, no melena or hematochezia, no hemoptysis hematemesis tolerating chemoimmunotherapy with carboplatin/Keytruda/Taxol well, Except mild peripheral neuropathy Medications: ALPRAZolam 1 Tablet (of 0.5 mg) Oral q 12 hours PRN, Aspirin 81 1 Tablet (of 81 mg) Tablet, chewable Oral daily, Cyclobenzaprine HCl 1 Tablet (of 10 mg) Oral q 8 hours PRN, Dexamethasone 1 Tablet (of 4 mg) Oral daily, Diclofenac Sodium 1 Tablet (of 75 mg) Tablet, enteric coated Oral b.i.d., HYDROcodone-Acetaminophen 1 Tablet (of 10-325 mg) Tablet Oral q 8 hours PRN, hydrOXYzine HCl 1 Tablet (of 25 mg) Oral q 8 hours PRN, Isosorbide Mononitrate ER 1 Tablet (of 60 mg) Tablet SR 24 HR Oral daily, Metoprolol Succinate ER 1 Tablet (of 25 mg) Tablet SR 24 HR Oral daily, Nitroglycerin (0.4 mg) Tablet, sublingual Sublingual Take as Directed, OxyCONTIN (20 mg) Tablet ER 12 HR Abuse-Deterrent Oral b.i.d., Sertraline HCl 1 Tablet (of 50 mg) Oral daily Allergies: Ibuprofen, Ketorolac Tromethamine, Levaquin, Morphine Sulfate, Nalbuphine HCl, Penicillins, Prochlorperazine Maleate, Ritalin, and SUMAtriptan Succinate. Review of Systems: Review of Systems is not available for this patient. Vital Signs: Performed on Apr 10, 2021 11:20 Height - 66.00 in Weight - 147.2 lbs (HIGH) BSA - 1.76 sq.m BMI - 23.76 Temperature - 99.7 F (HIGH) Pulse - 102 /min (HIGH) Respiration - 18 /min BP - 110/75 mm(hg) O2 Sat - 98 % Pain - 0 Fatigue - 2 Performance Status: 0 - Fully active, able to carry on all predisease activities without restrictions. (ECOG) Physical Examination: ENMT - No mouth sores, no thrush, no jaundice, Respiratory - Lungs are clear to auscultation, Cardiovascular - Regular rate and rhythm of heart, Abdomen - Soft, bowel sounds present, Extremities - No visible edema. Lab/Imaging: Test performed on Apr 01, 2021 08:11 Glucose 91 mg/dL BUN 5 mg/dL Creatinine 0.5 mg/dL Cr Clearance (Est) 148.19 mL/min Sodium 137 mmol/L Potassium 4.3 mmol/L Chloride 98 mmol/L CO2 22 mmol/L Calcium 9.1 mg/dL Protein, Total 6.3 g/dL Albumin 3.6 g/dL Globulin 2.7 g/dL Bilirubin, Total 0.2 mg/dL Alkaline Phosphatase 116 International Units/L AST (SGOT) 9 International Units/L ALT (SGPT) 5 International Units/L WBC 7.1 10^9/L RBC 3.42 10^12/L HGB 11.4 g/dL HCT 35.1 % MCV 102.6 fl MCH 33.3 pg MCHC 32.5 g/dL RDW 17.7 % Platelet Count 193 10^9/L MPV 9.1 fL Neutrophils (Gran) 5.34 10^9/L Lymphocytes 1.1 10^9/L Monocytes 0.5 10^9/L Eosinophils 0.0 10^9/L Basophils 0.1 10^9/L Manual Segs 75.7 % Manual Lymphocytes 15.2 % Manual Monocytes 7.5 % Manual Eosinophils 0.1 % Manual Basophils 0.8 % NRBCs 0 /100 WBC Test performed on Mar 13, 2021 09:00 Anion Gap 20.1 eGFR 132.8 mL/min Osmolality - Calculated 289 mOsm/kg Neutrophil % 91.3 % Lymphocyte % 6.8 % Monocyte % 0.6 % Eosinophil % 0.0 % Basophils % 0.3 % NRBC % 0 % CBC Slide Review Slide Review Perform SLIDE REVIEW AGREES WITH AUTOMATED RESULTS Test performed on Jan 01, 2021 08:59 Ferritin 388 ng/mL Folate, Serum 20.0 ng/mL Iron 45 mcg/dL Vitamin B12 1115 pg/mL Iron Binding Capacity (TIBC) 219 mcg/dL % Iron Saturation 20.5 % UIBC 174 mcg/dL Impression: Metastatic adenocarcinoma per bronchoscopy done on July 06, 2020 shows right upper lobe endobronchial biopsy was positive for malignancy non-small cell carcinoma station 4R lymph node positive for non-small cell carcinoma as per pathology. Histology features suggestive of invasive adenocarcinoma of the lung. MRI scan of the brain done on July 25, 2020 shows innumerable metastatic lesions throughout the brain involving cerebellum and cerebrum, largest metastatic mass is hemorrhagic measuring 1.5 x 1.4 x 1.9 cm in the right parafalcine occipital lobe with a large amount of surrounding edema but no midline shift. Status post whole brain radiation therapy completed on August 10, 2020. CT PET scan was done on June 30, 2020 showing an FDG positive right middle lobe nodule, malignant satellite nodule in the medial right lung and right hilum, and extensive malignant mediastinal adenopathy with extension into the right and midline cervical node territories. There is multi focal osseous metastatic disease in the central sacrum and posterior element of T12 A follow-up CT PET scan was performed on March 30, 2021. Results are pending. If there are no signs of progression of disease chemotherapy will be discontinued and Keytruda 200 mg every 3 weeks will be continued. Plan: Discussed with patient regarding her labs white blood count 5.4 hemoglobin 10.9 hematocrit 32.1 platelets 348,000 CMP within normal limit except glucose 217 TSH 0.48 and follow-up CT PET scan which was done on March 30, 2021 shows improvement in the right upper lobe mass with atelectasis. Residual activity in the right upper lobe nodule measuring 1 cm. No change in right hilar, mediastinal, thoracic inlet and right cervical lymph nodes. Most osseous metastatic lesions are stable with mixed improvement and progression Clinically, patient is doing well with no new signs symptoms history of disease progression, tolerating systemic therapy with Keytruda/carboplatin/Taxol well but with expected side effect e.g. progressive mild neuropathy, her follow-up CT PET scan shows stable disease and improvement in the right upper lobe as well as in her extensive metastatic disease especially with bone mets. Discussed with patient regarding further treatment which include switching her to maintenance therapy with Keytruda or switching her to another chemo regimen with Alimta/Avastin or Alimta/carboplatin but patient is reluctant to consider further chemotherapy knowing the risk versus benefit rather consider maintenance therapy with immunotherapy/Keytruda and if there is a disease progression then she may consider chemotherapy. So at this point we will discontinue her chemotherapy and switch her to maintenance therapy with Keytruda every 3 weeks while continue with monthly Xgeva As far as off-and-on headaches or stuffy sinuses concern, patient was advised to consider gargles and steam inhalation and if there is no improvement, may consider CT scan of her head. As far as left hip pain is concerned, currently under control with the pain medication but if there is a worsening, may consider MRI scan of left hip and possible referral to radiation oncology. Patient will return to clinic in 3 weeks with CBC CMP and to start her immunotherapy along with monthly Xgeva. Signed By: Lena Yanes M.D. <<Signature on File>>
== END 2021-04-26 23:59 | disposition home or self-care (01) ==
LOC: ONCMED 06:20
PROVIDERS: PCP Family Medicine; Visit Provider Internal Medicine Hematology & Oncology
DX: Z51.12 Encounter for antineoplastic immunotherapy (principal); Z51.11 Encounter for antineoplastic chemotherapy; C34.11 Malignant neoplasm of upper lobe, right bronchus or lung; C79.31 Secondary malignant neoplasm of brain; C77.8 Secondary and unspecified malignant neoplasm of lymph nodes of multiple regions; C79.51 Secondary malignant neoplasm of bone; G89.3 Neoplasm related pain (acute) (chronic); F11.90 Opioid use, unspecified, uncomplicated; F45.42 Pain disorder with related psychological factors; Z79.899 Other long term (current) drug therapy
CPT/HCPCS: 36591; 80053; 84443; 85025; 96367; 96375; 96413; 96417; 99214; 99215; J1100; J1200; J1453; J2469; J3490; J7030; J7040; J7050; J9045; J9267; J9271

== ENCOUNTER → 2021-05-21 09:15 | Outpatient (BNVA) | payer MEDICARE, MEDICAID, SELFPAY | PROVIDERS: PCP Family Medicine; Visit Provider Internal Medicine Hematology & Oncology | DX: C79.31 Secondary malignant neoplasm of brain (principal) | CPT/HCPCS: 84443; 85025 ==

== ENCOUNTER 2021-05-22 06:19 | Outpatient (RCR) | payer MEDICARE, MEDICAID, SELFPAY ==
[2021-05-01 10:12] LABS: Basophils # 0.1 10^3/uL (0.0-0.1); Basophils % 0.3 %; Eosinophils # 0.1 10^3/uL (0.0-0.8); Eosinophils % 0.4 %; Hematocrit 36.2 % (37.0-47.0); Hemoglobin 11.8 g/dL (11.5-15.3); Lymphocytes # 1.1 10^3/uL (0.8-4.8); Lymphocytes % 6.1 %; Mean Corpuscular HGB Conc 32.6 g/dL (30.0-36.0); Mean Corpuscular Hemoglobin 34.5 pg (28.0-34.0); Mean Corpuscular Volume 105.8 fl (81-99); Mean Platelet Volume 8.2 fL (7.4-10.4); Monocytes # 1.2 10^3/uL (0.2-0.9); Monocytes % 6.4 %; Neutrophils # 16.02 10^3/uL (1.8-7.7); Neutrophils % 86.2 %; Nucleated Red Blood Cells % 0 %; Platelet Count 349 10^3/cmm (130-400); Red Blood Count 3.42 10^6/uL (4.1-5.3); Red Cell Distribution Width 16.5 % (12.1-15.1); White Blood Count 18.6 10^3/uL (4.0-10.0)
[2021-05-01 10:38] LABS: Alanine Aminotransferase < 5 U/L (0-33); Albumin Level 3.3 g/dL (3.5-5.2); Alkaline Phosphatase 98 IU/L (35-105); Anion Gap 18.8 (5-19); Aspartate Amino Transferase 13 U/L (0-32); Blood Urea Nitrogen 5 mg/dL (6-20); Calcium 8.4 mg/dL (8.5-10.5); Carbon Dioxide 23 mmol/L (22-29); Chloride 99 mmol/L (98-107); Globulin 2.7 g/dL (1.3-4.6); Glomerular Filtration Rate 132.8 mL/min (90-130); Glucose 111 mg/dL (65-115); Osmolality Calculated 282 mOsm/kg (285-295); Potassium 3.8 mmol/L (3.5-5.1); Sodium 137 mmol/L (136-145); Total Bilirubin 0.2 mg/dL (0.15-1.2)
--- NOTE | 2021-05-01 15:54 | ONC FU_ITS ---
Dr. Yanes follow up note Patient: Winsome Salgado Unit #: [id number]: 1975 Dicatated By: Lena Yanes M.D.Date of Visit:May 01, 2021 Onc Med Follow-up/Prog Note History of Present Illness: Ms Salgado is a 45-year-old female with a history of abnormal chest x-ray which showed a right middle lobe lung lesion. She was referred to pulmonology for evaluation and she underwent CT scan of the chest on June 25, 2020. The CT reported extensive right upper lobe atelectasis/consolidation concerning for postobstructive pneumonia. Given the presence of spiculated 2.1 cm nodule within the right upper lobe and extensive mediastinal and right hilar adenopathy which was worrisome for metastatic disease, Ms Salgado had. evaluation with PET/CT scan on June 30, 2020. The PET/CT From June 30, 2020 showed 2 x 1.8 cm right middle lobe nodule with SUV of 10.9, a 1.2 cm. Right hilar nodule has an SUV of 8. Other FDG positive nodules are obscured by right middle lobe infiltrate but are present in the right middle lobe. Malignant mediastinal adenopathy is present in the superior anterior mediastinum, right paratracheal, left paratracheal, subaortic, subcarinal, right paraesophageal territory. Multifocal osseous metastatic disease are present in the central sacrum, posterior element of T12. And index lesion in the central sacrum measured 1.3 cm with SUV of 7.6. In the right cervical level 4 territory, there was a 1.5 x 2.7 cm node has SUV of 11.4. An FDG positive cervical level 4 lymph node. On July 06, 2020 she underwent bronchoscopy and transbronchial biopsy from right upper lobe showed non-small cell lung cancer, right endobronchial biopsy was positive for non-small cell cancer and station 4R lymph node positive for non-small cell carcinoma as per pathology he was consistent with invasive adenocarcinoma favor lung. Ms Salgado was referred to Dr Yanes for medical oncology consult. She denied any history of hemoptysis, denied any dysphagia but complaining of off-and-on headaches and blurred vision which is progressive no focal weakness. Also complaining of lower back pain and right posterior lower rib pain, not being controlled with hydrocodone, denies any history of trauma to her lower back or hip or chest. Patient is also complaining of weight loss, she used to weigh 176 now down to 150 pounds because of poor appetite. Patient is a chronic smoker smoked about 1 to 2 pack a day but now cutting down. Denies any jaundice denies any night sweats denies any fever chills denies any shortness of breath or palpitation Staging work-up including MRI scan of the brain which was done on July 25, 2020 showed innumerable metastatic lesions throughout the brain involving cerebellum and cerebrum, largest metastatic mass was hemorrhagic measuring 1.5 x 1.4 x 1.9 in the right parafalcine occipital lobe. With a large amount of surrounding edema but no midline shift. Ms Salgado was referred to radiation oncology and received 30 Gy between July 30, 2020 on August 10, 2020. 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 Keytruda/carboplatin/Taxol was restarted on November 06, 2020 Patient was treated with palliative radiation therapy to L4 and S1-2 and completed 3000 hours in 10 fraction on January 18, 2021, Her systemic therapy was held during palliative radiation therapy and patient resumed her chemo immunotherapy with Keytruda/carboplatin/Taxol on January 23, 2021, Follow-up CT PET scan done on March 30, 2021 showed improvement in the right upper lobe mass with atelectasis, residual activity in the right upper lobe nodule. No change in the right hilar, mediastinal, thoracic inlet and right cervical lymph nodes. Most osseous metastatic lesions are stable with mixed improvement and progression Her systemic therapy was changed to maintenance immunotherapy with Keytruda after dose of chemo immunotherapy with Keytruda/carboplatin/Taxol on April 03, 2021. Patient resumed 3 weekly maintenance immunotherapy with Keytruda alone on May 01, 2020. Came for follow-up, complaining of cough with white mucus with yellowish phlegm but no fever or chills, still Smoking about half pack a day. But no nausea or vomiting, no hemoptysis or hematemesis, no chest pain, no headaches blurred vision double vision, no skin rash, no diarrhea or constipation Patient is here to resume her maintenance therapy with Keytruda Medications: ALPRAZolam 1 Tablet (of 0.5 mg) Oral q 12 hours PRN, Aspirin 81 1 Tablet (of 81 mg) Tablet, chewable Oral daily, Cyclobenzaprine HCl 1 Tablet (of 10 mg) Oral q 8 hours PRN, Dexamethasone 1 Tablet (of 4 mg) Oral daily, Diclofenac Sodium 1 Tablet (of 75 mg) Tablet, enteric coated Oral b.i.d., HYDROcodone-Acetaminophen 1 Tablet (of 10-325 mg) Tablet Oral q 8 hours PRN, hydrOXYzine HCl 1 Tablet (of 25 mg) Oral q 8 hours PRN, Isosorbide Mononitrate ER 1 Tablet (of 60 mg) Tablet SR 24 HR Oral daily, Metoprolol Succinate ER 1 Tablet (of 25 mg) Tablet SR 24 HR Oral daily, Nitroglycerin (0.4 mg) Tablet, sublingual Sublingual Take as Directed, OxyCONTIN (20 mg) Tablet ER 12 HR Abuse-Deterrent Oral b.i.d., Sertraline HCl 1 Tablet (of 50 mg) Oral daily Allergies: Ibuprofen, Ketorolac Tromethamine, Levaquin, Morphine Sulfate, Nalbuphine HCl, Penicillins, Prochlorperazine Maleate, Ritalin, and SUMAtriptan Succinate. Review of Systems: Review of Systems is not available for this patient. Vital Signs: Performed on May 01, 2021 11:40 Height - 66.00 in Weight - 150 lbs (HIGH) BSA - 1.77 sq.m BMI - 24.21 Temperature - 99.6 F (HIGH) Pulse - 96 /min Respiration - 18 /min BP - 98/66 mm(hg) O2 Sat - 96 % Pain - 0 Fatigue - 2 Performance Status: 0 - Fully active, able to carry on all predisease activities without restrictions. (ECOG) Physical Examination: ENMT - No mouth sores, no thrush, no jaundice, Respiratory - Poor air entry otherwise clear, Cardiovascular - Regular rate and rhythm of heart, Abdomen - Soft, bowel sounds present, Extremities - No visible edema. Lab/Imaging: Test performed on Apr 01, 2021 08:11 Glucose 91 mg/dL BUN 5 mg/dL Creatinine 0.5 mg/dL Cr Clearance (Est) 148.19 mL/min Sodium 137 mmol/L Potassium 4.3 mmol/L Chloride 98 mmol/L CO2 22 mmol/L Calcium 9.1 mg/dL Protein, Total 6.3 g/dL Albumin 3.6 g/dL Globulin 2.7 g/dL Bilirubin, Total 0.2 mg/dL Alkaline Phosphatase 116 International Units/L AST (SGOT) 9 International Units/L ALT (SGPT) 5 International Units/L WBC 7.1 10^9/L RBC 3.42 10^12/L HGB 11.4 g/dL HCT 35.1 % MCV 102.6 fl MCH 33.3 pg MCHC 32.5 g/dL RDW 17.7 % Platelet Count 193 10^9/L MPV 9.1 fL Neutrophils (Gran) 5.34 10^9/L Lymphocytes 1.1 10^9/L Monocytes 0.5 10^9/L Eosinophils 0.0 10^9/L Basophils 0.1 10^9/L Manual Segs 75.7 % Manual Lymphocytes 15.2 % Manual Monocytes 7.5 % Manual Eosinophils 0.1 % Manual Basophils 0.8 % NRBCs 0 /100 WBC Test performed on Mar 13, 2021 09:00 Anion Gap 20.1 eGFR 132.8 mL/min Osmolality - Calculated 289 mOsm/kg Neutrophil % 91.3 % Lymphocyte % 6.8 % Monocyte % 0.6 % Eosinophil % 0.0 % Basophils % 0.3 % NRBC % 0 % CBC Slide Review Slide Review Perform SLIDE REVIEW AGREES WITH AUTOMATED RESULTS Test performed on Jan 01, 2021 08:59 Ferritin 388 ng/mL Folate, Serum 20.0 ng/mL Iron 45 mcg/dL Vitamin B12 1115 pg/mL Iron Binding Capacity (TIBC) 219 mcg/dL % Iron Saturation 20.5 % UIBC 174 mcg/dL Impression: Metastatic adenocarcinoma per bronchoscopy done on July 06, 2020 shows right upper lobe endobronchial biopsy was positive for malignancy non-small cell carcinoma station 4R lymph node positive for non-small cell carcinoma as per pathology. Histology features suggestive of invasive adenocarcinoma of the lung. MRI scan of the brain done on July 25, 2020 shows innumerable metastatic lesions throughout the brain involving cerebellum and cerebrum, largest metastatic mass is hemorrhagic measuring 1.5 x 1.4 x 1.9 cm in the right parafalcine occipital lobe with a large amount of surrounding edema but no midline shift. Status post whole brain radiation therapy completed on August 10, 2020. CT PET scan was done on June 30, 2020 showing an FDG positive right middle lobe nodule, malignant satellite nodule in the medial right lung and right hilum, and extensive malignant mediastinal adenopathy with extension into the right and midline cervical node territories. There is multi focal osseous metastatic disease in the central sacrum and posterior element of T12 A follow-up CT PET scan was performed on March 30, 2021. Results are pending. If there are no signs of progression of disease chemotherapy will be discontinued and Keytruda 200 mg every 3 weeks will be continued. Plan: And monthly Xgeva discussed with patient regarding her labs white blood count 18.6 hemoglobin 11.8 hematocrit 36.2 platelets 349,000 CMP within normal limits TSH 2.10 Clinically, patient doing well with no new signs symptom suggestive of disease progression, now being switched to maintenance therapy with Keytruda alone as her last CT PET scan shows stable disease. As far as mild leukocytosis concerned probably due to upper respiratory inflammation/infection or chronic smoking, patient was advised to quit smoking, was offered any assistance she may need. In the meantime we will start on Z-Gurwinder, she was advised to do saline gargles, and steam inhalation, if worsening of symptoms she need to go to hospital. In the meantime we will proceed with her first dose of maintenance therapy with Keytruda alone today then she will return to clinic in 3 weeks with CBC and TSH Signed By: Lena Yanes M.D. <<Signature on File>>
[2021-05-22 12:20] LABS: SARS Covid-2 Antigen Negative (Negative)
[2021-05-22] MEDS: HYDROcodone-acetaminophen 10-325 mg Tablet 2 TAB PO (12:35)
--- NOTE | 2021-05-22 17:15 | ONC FU_ITS ---
Dr. Yanes follow up note Patient: Winsome Salgado Unit #: [id number]: [id number] Dicatated By: Lena Yanes M.D.Date of Visit:May 22, 2021 Onc Med Follow-up/Prog Note History of Present Illness: Ms Salgado is a 45-year-old female with a history of abnormal chest x-ray which showed a right middle lobe lung lesion. She was referred to pulmonology for evaluation and she underwent CT scan of the chest on June 25, 2020. The CT reported extensive right upper lobe atelectasis/consolidation concerning for postobstructive pneumonia. Given the presence of spiculated 2.1 cm nodule within the right upper lobe and extensive mediastinal and right hilar adenopathy which was worrisome for metastatic disease, Ms Salgado had. evaluation with PET/CT scan on June 30, 2020. The PET/CT From June 30, 2020 showed 2 x 1.8 cm right middle lobe nodule with SUV of 10.9, a 1.2 cm. Right hilar nodule has an SUV of 8. Other FDG positive nodules are obscured by right middle lobe infiltrate but are present in the right middle lobe. Malignant mediastinal adenopathy is present in the superior anterior mediastinum, right paratracheal, left paratracheal, subaortic, subcarinal, right paraesophageal territory. Multifocal osseous metastatic disease are present in the central sacrum, posterior element of T12. And index lesion in the central sacrum measured 1.3 cm with SUV of 7.6. In the right cervical level 4 territory, there was a 1.5 x 2.7 cm node has SUV of 11.4. An FDG positive cervical level 4 lymph node. On July 06, 2020 she underwent bronchoscopy and transbronchial biopsy from right upper lobe showed non-small cell lung cancer, right endobronchial biopsy was positive for non-small cell cancer and station 4R lymph node positive for non-small cell carcinoma as per pathology he was consistent with invasive adenocarcinoma favor lung. Ms Salgado was referred to Dr Yanes for medical oncology consult. She denied any history of hemoptysis, denied any dysphagia but complaining of off-and-on headaches and blurred vision which is progressive no focal weakness. Also complaining of lower back pain and right posterior lower rib pain, not being controlled with hydrocodone, denies any history of trauma to her lower back or hip or chest. Patient is also complaining of weight loss, she used to weigh 176 now down to 150 pounds because of poor appetite. Patient is a chronic smoker smoked about 1 to 2 pack a day but now cutting down. Denies any jaundice denies any night sweats denies any fever chills denies any shortness of breath or palpitation Staging work-up including MRI scan of the brain which was done on July 25, 2020 showed innumerable metastatic lesions throughout the brain involving cerebellum and cerebrum, largest metastatic mass was hemorrhagic measuring 1.5 x 1.4 x 1.9 in the right parafalcine occipital lobe. With a large amount of surrounding edema but no midline shift. Ms Salgado was referred to radiation oncology and received 30 Gy between July 30, 2020 on August 10, 2020. 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 Keytruda/carboplatin/Taxol was restarted on November 06, 2020 Patient was treated with palliative radiation therapy to L4 and S1-2 and completed 3000 hours in 10 fraction on January 18, 2021, Her systemic therapy was held during palliative radiation therapy and patient resumed her chemo immunotherapy with Keytruda/carboplatin/Taxol on January 23, 2021, Follow-up CT PET scan done on March 30, 2021 showed improvement in the right upper lobe mass with atelectasis, residual activity in the right upper lobe nodule. No change in the right hilar, mediastinal, thoracic inlet and right cervical lymph nodes. Most osseous metastatic lesions are stable with mixed improvement and progression Her systemic therapy was changed to maintenance immunotherapy with Keytruda after dose of chemo immunotherapy with Keytruda/carboplatin/Taxol on April 03, 2021. Patient resumed 3 weekly maintenance immunotherapy with Keytruda alone on May 01, 2020. Came for follow-up, denies any specific complaint except sinus related symptoms and congestion but no fever chills, as per patient she has seen her PMD who gave her symptomatic treatment but did not get Covid test done. Denies any hemoptysis hematemesis denies any headaches blurred vision double vision, patient has chronic back pain and leg pains for which she take pain medicine and forgot to take this morning.Now on maintenance Keytruda, tolerating well Medications: ALPRAZolam 1 Tablet (of 0.5 mg) Oral q 12 hours PRN, Aspirin 81 1 Tablet (of 81 mg) Tablet, chewable Oral daily, Cyclobenzaprine HCl 1 Tablet (of 10 mg) Oral q 8 hours PRN, Dexamethasone 1 Tablet (of 4 mg) Oral daily, Diclofenac Sodium 1 Tablet (of 75 mg) Tablet, enteric coated Oral b.i.d., HYDROcodone-Acetaminophen 1 Tablet (of 10-325 mg) Tablet Oral q 8 hours PRN, hydrOXYzine HCl 1 Tablet (of 25 mg) Oral q 8 hours PRN, Isosorbide Mononitrate ER 1 Tablet (of 60 mg) Tablet SR 24 HR Oral daily, Metoprolol Succinate ER 1 Tablet (of 25 mg) Tablet SR 24 HR Oral daily, Nitroglycerin (0.4 mg) Tablet, sublingual Sublingual Take as Directed, OxyCONTIN (20 mg) Tablet ER 12 HR Abuse-Deterrent Oral b.i.d., Sertraline HCl 1 Tablet (of 50 mg) Oral daily Allergies: Ibuprofen, Ketorolac Tromethamine, Levaquin, Morphine Sulfate, Nalbuphine HCl, Penicillins, Prochlorperazine Maleate, Ritalin, and SUMAtriptan Succinate. Review of Systems: Review of Systems is not available for this patient. Vital Signs: Performed on May 22, 2021 11:21 Height - 66.00 in Weight - 148.8 lbs (LOW) BSA - 1.76 sq.m BMI - 24.02 Temperature - 99.5 F (HIGH) Pulse - 97 /min Respiration - 16 /min BP - 97/68 mm(hg) O2 Sat - 97 % Pain - 7 Fatigue - 8 Performance Status: 0 - Fully active, able to carry on all predisease activities without restrictions. (ECOG) Physical Examination: ENMT - No mouth sores, no thrush, no cervical lymphadenopathy, Respiratory - Lungs are clear to auscultation, Cardiovascular - Regular rate and rhythm of heart, Abdomen - Soft, bowel sounds present, Extremities - No visible edema. Lab/Imaging: Test performed on May 22, 2021 11:17 TSH 3.78 uU/mL WBC 9.3 10^9/L RBC 3.73 10^12/L HGB 12.8 g/dL HCT 38.9 % MCV 104.3 fl MCH 34.3 pg MCHC 32.9 g/dL RDW 14.2 % Platelet Count 392 10^9/L MPV 8.4 fL Neutrophils (Gran) 7.07 10^9/L Lymphocytes 1.3 10^9/L Monocytes 0.6 10^9/L Eosinophils 0.2 10^9/L Basophils 0.1 10^9/L Manual Segs 76 % Manual Lymphocytes 14.4 % Manual Monocytes 6.5 % Manual Eosinophils 2 % Manual Basophils 0.6 % NRBCs 0 /100 WBC Test performed on Apr 01, 2021 08:11 Glucose 91 mg/dL BUN 5 mg/dL Creatinine 0.5 mg/dL Cr Clearance (Est) 148.19 mL/min Sodium 137 mmol/L Potassium 4.3 mmol/L Chloride 98 mmol/L CO2 22 mmol/L Calcium 9.1 mg/dL Protein, Total 6.3 g/dL Albumin 3.6 g/dL Globulin 2.7 g/dL Bilirubin, Total 0.2 mg/dL Alkaline Phosphatase 116 International Units/L AST (SGOT) 9 International Units/L ALT (SGPT) 5 International Units/L Test performed on Mar 13, 2021 09:00 Anion Gap 20.1 eGFR 132.8 mL/min Osmolality - Calculated 289 mOsm/kg Neutrophil % 91.3 % Lymphocyte % 6.8 % Monocyte % 0.6 % Eosinophil % 0.0 % Basophils % 0.3 % NRBC % 0 % CBC Slide Review Slide Review Perform SLIDE REVIEW AGREES WITH AUTOMATED RESULTS Test performed on Jan 01, 2021 08:59 Ferritin 388 ng/mL Folate, Serum 20.0 ng/mL Iron 45 mcg/dL Vitamin B12 1115 pg/mL Iron Binding Capacity (TIBC) 219 mcg/dL % Iron Saturation 20.5 % UIBC 174 mcg/dL Impression: Metastatic adenocarcinoma per bronchoscopy done on July 06, 2020 shows right upper lobe endobronchial biopsy was positive for malignancy non-small cell carcinoma station 4R lymph node positive for non-small cell carcinoma as per pathology. Histology features suggestive of invasive adenocarcinoma of the lung. MRI scan of the brain done on July 25, 2020 shows innumerable metastatic lesions throughout the brain involving cerebellum and cerebrum, largest metastatic mass is hemorrhagic measuring 1.5 x 1.4 x 1.9 cm in the right parafalcine occipital lobe with a large amount of surrounding edema but no midline shift. Status post whole brain radiation therapy completed on August 10, 2020. CT PET scan was done on June 30, 2020 showing an FDG positive right middle lobe nodule, malignant satellite nodule in the medial right lung and right hilum, and extensive malignant mediastinal adenopathy with extension into the right and midline cervical node territories. There is multi focal osseous metastatic disease in the central sacrum and posterior element of T12 A follow-up CT PET scan was performed on March 30, 2021. Results are pending. If there are no signs of progression of disease chemotherapy will be discontinued and Keytruda 200 mg every 3 weeks will be continued. Plan: Discussed with patient regarding her labs white blood count 9.3 hemoglobin 12.8 hematocrit 38.9 platelets 392,000 TSH 3.78 Clinically, patient is doing reasonably well with no new signs suggestive of recurrence of disease, tolerating maintenance therapy with Keytruda well, will proceed with next dose today As far as upper respiratory congestion concern patient is on supportive/symptomatic treatment, we will consider Covid testing. And she return to clinic in 3 weeks with CMP Addendum, rapid Covid test was done came back negative Signed By: Lena Yanes M.D. <<Signature on File>>
== END 2021-05-27 23:59 | disposition home or self-care (01) ==
LOC: ONCMED 06:19
PROVIDERS: PCP Family Medicine; Visit Provider Internal Medicine Hematology & Oncology
DX: Z51.12 Encounter for antineoplastic immunotherapy (principal); C34.11 Malignant neoplasm of upper lobe, right bronchus or lung; C79.31 Secondary malignant neoplasm of brain; C77.8 Secondary and unspecified malignant neoplasm of lymph nodes of multiple regions; C79.51 Secondary malignant neoplasm of bone; J06.9 Acute upper respiratory infection, unspecified; Z79.899 Other long term (current) drug therapy
CPT/HCPCS: 80053; 84443; 85025; 87426; 96413; 99215; J7050; J9271

== ENCOUNTER → 2021-06-11 10:16 | Outpatient (BNVA) | payer MEDICARE, MEDICAID, SELFPAY | PROVIDERS: PCP Family Medicine; Visit Provider Internal Medicine Hematology & Oncology | DX: C34.90 Malignant neoplasm of unspecified part of unspecified bronchus or lung (principal) | CPT/HCPCS: 80053; 84443; 85025 ==

== ENCOUNTER 2021-06-12 09:20 | Outpatient (RCR) | payer MEDICARE, MEDICAID, SELFPAY ==
--- NOTE | 2021-06-12 10:13 | ONC FU_ITS ---
Sujata Chavez Progress Note Patient: Winsome Salgado Unit #: [id number]: [id number] Dicatated By: Sujata Chavez N.P.Date of Visit:Jun 12, 2021 Onc MED Follow-up/Prog Note Chief Complaint: Non-small cell lung cancer History of Present Illness: Ms Salgado is a 45-year-old female with a history of abnormal chest x-ray which showed a right middle lobe lung lesion. She was referred to pulmonology for evaluation and she underwent CT scan of the chest on June 25, 2020. The CT reported extensive right upper lobe atelectasis/consolidation concerning for postobstructive pneumonia. Given the presence of spiculated 2.1 cm nodule within the right upper lobe and extensive mediastinal and right hilar adenopathy which was worrisome for metastatic disease, Ms Salgado had. evaluation with PET/CT scan on June 30, 2020. The PET/CT From June 30, 2020 showed 2 x 1.8 cm right middle lobe nodule with SUV of 10.9, a 1.2 cm. Right hilar nodule has an SUV of 8. Other FDG positive nodules are obscured by right middle lobe infiltrate but are present in the right middle lobe. Malignant mediastinal adenopathy is present in the superior anterior mediastinum, right paratracheal, left paratracheal, subaortic, subcarinal, right paraesophageal territory. Multifocal osseous metastatic disease are present in the central sacrum, posterior element of T12. And index lesion in the central sacrum measured 1.3 cm with SUV of 7.6. In the right cervical level 4 territory, there was a 1.5 x 2.7 cm node has SUV of 11.4. An FDG positive cervical level 4 lymph node. On July 06, 2020 she underwent bronchoscopy and transbronchial biopsy from right upper lobe showed non-small cell lung cancer, right endobronchial biopsy was positive for non-small cell cancer and station 4R lymph node positive for non-small cell carcinoma as per pathology he was consistent with invasive adenocarcinoma favor lung. Ms Salgado was referred to Dr Yanes for medical oncology consult. She denied any history of hemoptysis, denied any dysphagia but complaining of off-and-on headaches and blurred vision which is progressive no focal weakness. Also complaining of lower back pain and right posterior lower rib pain, not being controlled with hydrocodone, denies any history of trauma to her lower back or hip or chest. Patient is also complaining of weight loss, she used to weigh 176 now down to 150 pounds because of poor appetite. Patient is a chronic smoker smoked about 1 to 2 pack a day but now cutting down. Denies any jaundice denies any night sweats denies any fever chills denies any shortness of breath or palpitation Staging work-up including MRI scan of the brain which was done on July 25, 2020 showed innumerable metastatic lesions throughout the brain involving cerebellum and cerebrum, largest metastatic mass was hemorrhagic measuring 1.5 x 1.4 x 1.9 in the right parafalcine occipital lobe. With a large amount of surrounding edema but no midline shift. Ms Salgado was referred to radiation oncology and received 30 Gy between July 30, 2020 on August 10, 2020. 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 Keytruda/carboplatin/Taxol was restarted on November 06, 2020 Patient was treated with palliative radiation therapy to L4 and S1-2 and completed 3000 hours in 10 fraction on January 18, 2021, Her systemic therapy was held during palliative radiation therapy and patient resumed her chemo immunotherapy with Keytruda/carboplatin/Taxol on January 23, 2021, Follow-up CT PET scan done on March 30, 2021 showed improvement in the right upper lobe mass with atelectasis, residual activity in the right upper lobe nodule. No change in the right hilar, mediastinal, thoracic inlet and right cervical lymph nodes. Most osseous metastatic lesions are stable with mixed improvement and progression Her systemic therapy was changed to maintenance immunotherapy with Keytruda after dose of chemo immunotherapy with Keytruda/carboplatin/Taxol on April 03, 2021. Patient resumed 3 weekly maintenance immunotherapy with Keytruda alone on May 01, 2020. Patient presents today for follow-up after her Keytruda infusion. She states she is tired today but she does not think it is related to the Keytruda. She denies fever, chills, night sweats. No shortness of breath, cough, chest pain. No problems with GI or symptoms she has occasional headaches but they are not today. No dizziness. She continues to have low back pain but it is not changed from previous visits. Review Of Symptoms: See above Past Medical History: History of ovarian cancer Hypertension Past Surgical History: Appendectomy Cholecystectomy Hysterectomy/bilateral salpingectomy-oophorectomy - At age 16, had uterine cancer Right shoulder replacement Covid vaccine #3 in 2020 Covid 19 vaccine #2 Pfizer in 2020 Covid 19 vaccine #3 Pfizer in 2020 Covid 19 vaccine #1 Pfizer in 2020 Colonoscopy in 2018 Allergies: Ibuprofen, Ketorolac Tromethamine, Levaquin, Morphine Sulfate, Nalbuphine HCl, Penicillins, Prochlorperazine Maleate, Ritalin, and SUMAtriptan Succinate. Medications: ALPRAZolam 1 Tablet (of 0.5 mg) Oral q 12 hours PRN Aspirin 81 1 Tablet (of 81 mg) Tablet, chewable Oral daily Cyclobenzaprine HCl 1 Tablet (of 10 mg) Oral q 8 hours PRN Dexamethasone 1 Tablet (of 4 mg) Oral daily Diclofenac Sodium 1 Tablet (of 75 mg) Tablet, enteric coated Oral b.i.d. HYDROcodone-Acetaminophen 1 Tablet (of 10-325 mg) Tablet Oral q 8 hours PRN hydrOXYzine HCl 1 Tablet (of 25 mg) Oral q 8 hours PRN Isosorbide Mononitrate ER 1 Tablet (of 60 mg) Tablet SR 24 HR Oral daily Metoprolol Succinate ER 1 Tablet (of 25 mg) Tablet SR 24 HR Oral daily Nitroglycerin (0.4 mg) Tablet, sublingual Sublingual Take as Directed OxyCONTIN (20 mg) Tablet ER 12 HR Abuse-Deterrent Oral b.i.d. Sertraline HCl 1 Tablet (of 50 mg) Oral daily Family History: Ms. Salgado's mother is alive. Ms. Salgado's father at age 74: Lung Cancer. Ms. Salgado has 1 brother who is alive. She has 2 sisters: 2 alive. Social History: Ms. Salgado is . She is a daily smoker who has smoked 0.5 packs/day for 31 years. She has no history of drinking. She has indicated exposure to the following products: cigarettes. Physical Examination: Performed on Jun 12, 2021 09:33: Height - 66.00 in, Weight - 147.0 lbs (LOW), BSA - 1.75 sq.m, BMI - 23.73, Temperature - 99.8 F (HIGH), Pulse - 90 /min, Respiration - 16 /min, BP - 103/71 mm(hg), O2 Sat - 97 %, Pain - 0, and Fatigue - 5. Performance Status: 1 - No physically strenuous activity, but ambulatory and able to carry out light or sedentary work (e.g. office work, light house work). (ECOG) Constitutional Alert, cooperative, oriented. Mood and affect appropriate. Appears close to chronological age. Well nourished. Well developed. Head Normocephalic; no scars. Hematologic/Lymphatic No petechiae or purpura. No tender or palpable lymph nodes in the cervical, supraclavicular, axillary or inguinal area. Respiratory Lungs are clear to auscultation without rhonchi or wheezing. Cardiovascular Regular rate and rhythm of heart without murmurs, gallops or rubs. Abdomen Non-tender, non-distended, no masses, ascites or hepatosplenomegaly. Good bowel sounds. No guarding or rebound tenderness. Extremities No visible deformities, no cyanosis, clubbing or edema. Pulses 3+ and equal bilaterally. Laboratory: Test performed on May 22, 2021 11:17 TSH 3.78 uU/mL WBC 9.3 10^9/L RBC 3.73 10^12/L HGB 12.8 g/dL HCT 38.9 % MCV 104.3 fl MCH 34.3 pg MCHC 32.9 g/dL RDW 14.2 % Platelet Count 392 10^9/L MPV 8.4 fL Neutrophils (Gran) 7.07 10^9/L Lymphocytes 1.3 10^9/L Monocytes 0.6 10^9/L Eosinophils 0.2 10^9/L Basophils 0.1 10^9/L Manual Segs 76 % Manual Lymphocytes 14.4 % Manual Monocytes 6.5 % Manual Eosinophils 2 % Manual Basophils 0.6 % NRBCs 0 /100 WBC Test performed on Apr 01, 2021 08:11 Glucose 91 mg/dL BUN 5 mg/dL Creatinine 0.5 mg/dL Cr Clearance (Est) 148.19 mL/min Sodium 137 mmol/L Potassium 4.3 mmol/L Chloride 98 mmol/L CO2 22 mmol/L Calcium 9.1 mg/dL Protein, Total 6.3 g/dL Albumin 3.6 g/dL Globulin 2.7 g/dL Bilirubin, Total 0.2 mg/dL Alkaline Phosphatase 116 International Units/L AST (SGOT) 9 International Units/L ALT (SGPT) 5 International Units/L Test performed on Mar 13, 2021 09:00 Anion Gap 20.1 eGFR 132.8 mL/min Osmolality - Calculated 289 mOsm/kg Neutrophil % 91.3 % Lymphocyte % 6.8 % Monocyte % 0.6 % Eosinophil % 0.0 % Basophils % 0.3 % NRBC % 0 % CBC Slide Review Slide Review Perform SLIDE REVIEW AGREES WITH AUTOMATED RESULTS Test performed on Jan 01, 2021 08:59 Ferritin 388 ng/mL Folate, Serum 20.0 ng/mL Iron 45 mcg/dL Vitamin B12 1115 pg/mL Iron Binding Capacity (TIBC) 219 mcg/dL % Iron Saturation 20.5 % UIBC 174 mcg/dL Impression: Metastatic adenocarcinoma per bronchoscopy done on July 06, 2020 shows right upper lobe endobronchial biopsy was positive for malignancy non-small cell carcinoma station 4R lymph node positive for non-small cell carcinoma as per pathology. Histology features suggestive of invasive adenocarcinoma of the lung. MRI scan of the brain done on July 25, 2020 shows innumerable metastatic lesions throughout the brain involving cerebellum and cerebrum, largest metastatic mass is hemorrhagic measuring 1.5 x 1.4 x 1.9 cm in the right parafalcine occipital lobe with a large amount of surrounding edema but no midline shift. Status post whole brain radiation therapy completed on August 10, 2020. CT PET scan was done on June 30, 2020 showing an FDG positive right middle lobe nodule, malignant satellite nodule in the medial right lung and right hilum, and extensive malignant mediastinal adenopathy with extension into the right and midline cervical node territories. There is multi focal osseous metastatic disease in the central sacrum and posterior element of T12 A follow-up CT PET scan was performed on March 30, 2021. Results are pending. If there are no signs of progression of disease chemotherapy will be discontinued and Keytruda 200 mg every 3 weeks will be continued. Plan: Discussed labs with patient with WBC at 10.5, hemoglobin 12.9, hematocrit 41.1, platelets 434,000, neutrophils at 8.26. Her dig is stable at 3.03. Patient doing well and tolerating Keytruda. We will continue with next cycle she will return back with CBC CMP. Signed By: Sujata Chavez N.P. <<Signature on File>>
[2021-06-12] MEDS: sodium chloride 0.9% 500 ML 999 ML IV (11:16)
[2021-06-12] MEDS: denosumab 120 mg SDV SUBCUT (11:27)
== END 2021-06-24 23:59 | disposition home or self-care (01) ==
LOC: ONCMED 09:20
PROVIDERS: PCP Family Medicine; Visit Provider Internal Medicine Hematology & Oncology
DX: Z51.12 Encounter for antineoplastic immunotherapy (principal); Z51.11 Encounter for antineoplastic chemotherapy; C34.11 Malignant neoplasm of upper lobe, right bronchus or lung; C79.31 Secondary malignant neoplasm of brain; C77.8 Secondary and unspecified malignant neoplasm of lymph nodes of multiple regions; C79.51 Secondary malignant neoplasm of bone; Z79.899 Other long term (current) drug therapy
CPT/HCPCS: 96361; 96372; 96413; 99215; J0897; J7040; J7050; J9271

== ENCOUNTER 2021-07-03 08:30 | Outpatient (RCR) | payer MEDICARE, MEDICAID, SELFPAY ==
[2021-07-03] MEDS: alteplase 1 mg/mL SDV 2 mL 2 MG IV (09:30)
[2021-07-03 09:37] LABS: Basophils % 0.4 %; Eosinophils # 0.2 10^3/uL (0.0-0.8); Eosinophils % 1.8 %; Hematocrit 38.5 % (37.0-47.0); Hemoglobin 12.5 g/dL (11.5-15.3); Lymphocytes # 1.1 10^3/uL (0.8-4.8); Lymphocytes % 11.6 %; Mean Corpuscular HGB Conc 32.5 g/dL (30.0-36.0); Mean Corpuscular Hemoglobin 32.9 pg (28.0-34.0); Mean Corpuscular Volume 101.3 fl (81-99); Mean Platelet Volume 8.1 fL (7.4-10.4); Monocytes # 0.6 10^3/uL (0.2-0.9); Monocytes % 6.7 %; Neutrophils # 7.51 10^3/uL (1.8-7.7); Neutrophils % 79.1 %; Nucleated Red Blood Cells % 0 %; Platelet Count 411 10^3/cmm (130-400); Red Cell Distribution Width 12.9 % (12.1-15.1); White Blood Count 9.5 10^3/uL (4.0-10.0)
[2021-07-03 10:01] LABS: Alanine Aminotransferase 9 U/L (0-33); Albumin Level 4.1 g/dL (3.5-5.2); Alkaline Phosphatase 77 IU/L (35-105); Anion Gap 16.4 (5-19); Aspartate Amino Transferase 18 U/L (0-32); Blood Urea Nitrogen 4 mg/dL (6-20); Calcium 9.8 mg/dL (8.5-10.5); Carbon Dioxide 25 mmol/L (22-29); Chloride 101 mmol/L (98-107); Glomerular Filtration Rate 132.8 mL/min (90-130); Glucose 101 mg/dL (65-115); Osmolality Calculated 285 mOsm/kg (285-295); Potassium 3.4 mmol/L (3.5-5.1); Sodium 139 mmol/L (136-145); Total Bilirubin 0.2 mg/dL (0.15-1.2); Total Protein 7.1 g/dL (6.6-8.7)
--- NOTE | 2021-07-03 17:37 | ONC FU_ITS ---
Dr. Yanes follow up note Patient: Winsome Salgado Unit #: [id number]: [id number] Dicatated By: Lena Yanes M.D.Date of Visit:Jul 03, 2021 Onc Med Follow-up/Prog Note History of Present Illness: Ms Salgado is a 45-year-old female with a history of abnormal chest x-ray which showed a right middle lobe lung lesion. She was referred to pulmonology for evaluation and she underwent CT scan of the chest on June 25, 2020. The CT reported extensive right upper lobe atelectasis/consolidation concerning for postobstructive pneumonia. Given the presence of spiculated 2.1 cm nodule within the right upper lobe and extensive mediastinal and right hilar adenopathy which was worrisome for metastatic disease, Ms Salgado had. evaluation with PET/CT scan on June 30, 2020. The PET/CT From June 30, 2020 showed 2 x 1.8 cm right middle lobe nodule with SUV of 10.9, a 1.2 cm. Right hilar nodule has an SUV of 8. Other FDG positive nodules are obscured by right middle lobe infiltrate but are present in the right middle lobe. Malignant mediastinal adenopathy is present in the superior anterior mediastinum, right paratracheal, left paratracheal, subaortic, subcarinal, right paraesophageal territory. Multifocal osseous metastatic disease are present in the central sacrum, posterior element of T12. And index lesion in the central sacrum measured 1.3 cm with SUV of 7.6. In the right cervical level 4 territory, there was a 1.5 x 2.7 cm node has SUV of 11.4. An FDG positive cervical level 4 lymph node. On July 06, 2020 she underwent bronchoscopy and transbronchial biopsy from right upper lobe showed non-small cell lung cancer, right endobronchial biopsy was positive for non-small cell cancer and station 4R lymph node positive for non-small cell carcinoma as per pathology he was consistent with invasive adenocarcinoma favor lung. Ms Salgado was referred to Dr Yanes for medical oncology consult. She denied any history of hemoptysis, denied any dysphagia but complaining of off-and-on headaches and blurred vision which is progressive no focal weakness. Also complaining of lower back pain and right posterior lower rib pain, not being controlled with hydrocodone, denies any history of trauma to her lower back or hip or chest. Patient is also complaining of weight loss, she used to weigh 176 now down to 150 pounds because of poor appetite. Patient is a chronic smoker smoked about 1 to 2 pack a day but now cutting down. Denies any jaundice denies any night sweats denies any fever chills denies any shortness of breath or palpitation Staging work-up including MRI scan of the brain which was done on July 25, 2020 showed innumerable metastatic lesions throughout the brain involving cerebellum and cerebrum, largest metastatic mass was hemorrhagic measuring 1.5 x 1.4 x 1.9 in the right parafalcine occipital lobe. With a large amount of surrounding edema but no midline shift. Ms Salgado was referred to radiation oncology and received 30 Gy between July 30, 2020 on August 10, 2020. 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 Keytruda/carboplatin/Taxol was restarted on November 06, 2020 Patient was treated with palliative radiation therapy to L4 and S1-2 and completed 3000 hours in 10 fraction on January 18, 2021, Her systemic therapy was held during palliative radiation therapy and patient resumed her chemo immunotherapy with Keytruda/carboplatin/Taxol on January 23, 2021, Follow-up CT PET scan done on March 30, 2021 showed improvement in the right upper lobe mass with atelectasis, residual activity in the right upper lobe nodule. No change in the right hilar, mediastinal, thoracic inlet and right cervical lymph nodes. Most osseous metastatic lesions are stable with mixed improvement and progression Her systemic therapy was changed to maintenance immunotherapy with Keytruda after dose of chemo immunotherapy with Keytruda/carboplatin/Taxol on April 03, 2021. Patient resumed 3 weekly maintenance immunotherapy with Keytruda alone on May 01, 2020. Came for follow-up, complaining of cough with whitish phlegm and postnasal drip but no hemoptysis or hematemesis, no fever chills, no nausea or vomiting, no shortness of breath, no palpitation, no jaundice, no skin rash, no wheezing, no diarrhea or mucus in the stool, still smoking about half pack a day, tolerating Keytruda well otherwise Medications: ALPRAZolam 1 Tablet (of 0.5 mg) Oral q 12 hours PRN, Aspirin 81 1 Tablet (of 81 mg) Tablet, chewable Oral daily, Cyclobenzaprine HCl 1 Tablet (of 10 mg) Oral q 8 hours PRN, Dexamethasone 1 Tablet (of 4 mg) Oral daily, Diclofenac Sodium 1 Tablet (of 75 mg) Tablet, enteric coated Oral b.i.d., HYDROcodone-Acetaminophen 1 Tablet (of 10-325 mg) Tablet Oral q 8 hours PRN, hydrOXYzine HCl 1 Tablet (of 25 mg) Oral q 8 hours PRN, Isosorbide Mononitrate ER 1 Tablet (of 60 mg) Tablet SR 24 HR Oral daily, Metoprolol Succinate ER 1 Tablet (of 25 mg) Tablet SR 24 HR Oral daily, Nitroglycerin (0.4 mg) Tablet, sublingual Sublingual Take as Directed, OxyCONTIN (20 mg) Tablet ER 12 HR Abuse-Deterrent Oral b.i.d., Sertraline HCl 1 Tablet (of 50 mg) Oral daily Allergies: Ibuprofen, Ketorolac Tromethamine, Levaquin, Morphine Sulfate, Nalbuphine HCl, Penicillins, Prochlorperazine Maleate, Ritalin, and SUMAtriptan Succinate. Review of Systems: Review of Systems is not available for this patient. Vital Signs: Performed on Jul 03, 2021 15:00 Height - 66.00 in Weight - 144.6 lbs (LOW) BSA - 1.74 sq.m BMI - 23.34 Temperature - 97.6 F (LOW) Pulse - 80 /min Respiration - 16 /min BP - 107/75 mm(hg) O2 Sat - 97 % Pain - 10 Fatigue - 10 Performance Status: 0 - Fully active, able to carry on all predisease activities without restrictions. (ECOG) Physical Examination: ENMT - No mouth sores, no thrush, no jaundice, Respiratory - Poor air entry, mild wheezing otherwise clear, Cardiovascular - Regular rate and rhythm of heart, Abdomen - Soft, bowel sounds present, Extremities - No visible edema. Lab/Imaging: Test performed on Jun 11, 2021 11:34 TSH 3.03 uU/mL Glucose 96 mg/dL BUN 5 mg/dL Creatinine 0.5 mg/dL Cr Clearance (Est) 147.99 mL/min Sodium 140 mmol/L Potassium 4.1 mmol/L Chloride 101 mmol/L CO2 24 mmol/L Calcium 8.1 mg/dL Protein, Total 6.2 g/dL Albumin 4.0 g/dL Globulin 2.2 g/dL Bilirubin, Total 0.2 mg/dL Alkaline Phosphatase 96 International Units/L AST (SGOT) 15 International Units/L ALT (SGPT) 7 International Units/L WBC 10.5 10^9/L RBC 3.89 10^12/L HGB 12.9 g/dL HCT 41.1 % MCV 105.7 fl MCH 33.2 pg MCHC 31.4 g/dL RDW 13.2 % Platelet Count 434 10^9/L MPV 8.4 fL Neutrophils (Gran) 8.26 10^9/L Lymphocytes 1.386 10^9/L Monocytes 0.546 10^9/L Eosinophils 0.189 10^9/L Basophils 0.042 10^9/L Test performed on May 22, 2021 11:17 Manual Segs 76 % Manual Lymphocytes 14.4 % Manual Monocytes 6.5 % Manual Eosinophils 2 % Manual Basophils 0.6 % NRBCs 0 /100 WBC Test performed on Mar 13, 2021 09:00 Anion Gap 20.1 eGFR 132.8 mL/min Osmolality - Calculated 289 mOsm/kg Neutrophil % 91.3 % Lymphocyte % 6.8 % Monocyte % 0.6 % Eosinophil % 0.0 % Basophils % 0.3 % NRBC % 0 % CBC Slide Review Slide Review Perform SLIDE REVIEW AGREES WITH AUTOMATED RESULTS Impression: Metastatic adenocarcinoma per bronchoscopy done on July 06, 2020 shows right upper lobe endobronchial biopsy was positive for malignancy non-small cell carcinoma station 4R lymph node positive for non-small cell carcinoma as per pathology. Histology features suggestive of invasive adenocarcinoma of the lung. MRI scan of the brain done on July 25, 2020 shows innumerable metastatic lesions throughout the brain involving cerebellum and cerebrum, largest metastatic mass is hemorrhagic measuring 1.5 x 1.4 x 1.9 cm in the right parafalcine occipital lobe with a large amount of surrounding edema but no midline shift. Status post whole brain radiation therapy completed on August 10, 2020. CT PET scan was done on June 30, 2020 showing an FDG positive right middle lobe nodule, malignant satellite nodule in the medial right lung and right hilum, and extensive malignant mediastinal adenopathy with extension into the right and midline cervical node territories. There is multi focal osseous metastatic disease in the central sacrum and posterior element of T12 A follow-up CT PET scan was performed on March 30, 2021. Results are pending. If there are no signs of progression of disease chemotherapy will be discontinued and Keytruda 200 mg every 3 weeks will be continued. Plan: Discussed with patient regarding her labs white blood count 9.5 hemoglobin 12.5 hematocrit 38.5 platelets 411,000 CMP within normal limit except potassium 3.4 Clinically, patient doing well with no new signs symptom suggestive of disease progression, will proceed with next 3 weekly dose of Keytruda today and then she will return to clinic in 3 weeks with CBC CMP and TSH We will consider follow-up CT PET scan after next cycle we will consider follow-up CT PET scan after next cycle of Keytruda As far as cough with whitish phlegm and postnasal drip is concerned, probably due to smoking or allergies, no sign of bacterial infection, patient was advised to quit smoking, was offered any assistance she may need in the meantime,, advised to try [id number] Claritin or Zyrtec and saline gargles and steam inhalation, Signed By: Lena Yanes M.D. <<Signature on File>>
== END 2021-07-25 23:59 | disposition home or self-care (01) ==
LOC: ONCMED 08:30
PROVIDERS: PCP Family Medicine; Visit Provider Internal Medicine Hematology & Oncology
DX: Z51.12 Encounter for antineoplastic immunotherapy (principal); C34.11 Malignant neoplasm of upper lobe, right bronchus or lung; C77.8 Secondary and unspecified malignant neoplasm of lymph nodes of multiple regions; C79.31 Secondary malignant neoplasm of brain; F17.210 Nicotine dependence, cigarettes, uncomplicated; Z79.899 Other long term (current) drug therapy
CPT/HCPCS: 36593; 80053; 85025; 96413; 99215; J2997; J7050; J9271

== ENCOUNTER → 2021-07-23 10:05 | Outpatient (BNVA) | payer MEDICARE, MEDICAID, SELFPAY | PROVIDERS: PCP Family Medicine; Visit Provider Internal Medicine Hematology & Oncology | DX: C34.90 Malignant neoplasm of unspecified part of unspecified bronchus or lung (principal); R00.2 Palpitations | CPT/HCPCS: 80053; 84443; 85025 ==

== ENCOUNTER → 2021-08-06 08:13 | Outpatient (BNVA) | payer MEDICARE, MEDICAID, SELFPAY | PROVIDERS: PCP Family Medicine; Visit Provider Internal Medicine Hematology & Oncology | DX: C34.90 Malignant neoplasm of unspecified part of unspecified bronchus or lung (principal); R00.2 Palpitations | CPT/HCPCS: 80053; 84443; 85025 ==

== ENCOUNTER 2021-08-07 06:44 | Outpatient (RCR) | payer MEDICARE, MEDICAID, SELFPAY ==
--- NOTE | 2021-08-06 08:49 | ONC FU_ITS ---
Sujata Chavez Progress Note Patient: Wnisome Salgado Unit #: [id number]: [id number] Dicatated By: Sujata Chavez N.P.Date of Visit:Jul 31, 2021 Onc MED Follow-up/Prog Note Chief Complaint: Non-small cell lung cancer History of Present Illness: Ms Salgado is a 45-year-old female with a history of abnormal chest x-ray which showed a right middle lobe lung lesion. She was referred to pulmonology for evaluation and she underwent CT scan of the chest on June 25, 2020. The CT reported extensive right upper lobe atelectasis/consolidation concerning for postobstructive pneumonia. Given the presence of spiculated 2.1 cm nodule within the right upper lobe and extensive mediastinal and right hilar adenopathy which was worrisome for metastatic disease, Ms Salgado had. evaluation with PET/CT scan on June 30, 2020. The PET/CT From June 30, 2020 showed 2 x 1.8 cm right middle lobe nodule with SUV of 10.9, a 1.2 cm. Right hilar nodule has an SUV of 8. Other FDG positive nodules are obscured by right middle lobe infiltrate but are present in the right middle lobe. Malignant mediastinal adenopathy is present in the superior anterior mediastinum, right paratracheal, left paratracheal, subaortic, subcarinal, right paraesophageal territory. Multifocal osseous metastatic disease are present in the central sacrum, posterior element of T12. And index lesion in the central sacrum measured 1.3 cm with SUV of 7.6. In the right cervical level 4 territory, there was a 1.5 x 2.7 cm node has SUV of 11.4. An FDG positive cervical level 4 lymph node. On July 06, 2020 she underwent bronchoscopy and transbronchial biopsy from right upper lobe showed non-small cell lung cancer, right endobronchial biopsy was positive for non-small cell cancer and station 4R lymph node positive for non-small cell carcinoma as per pathology he was consistent with invasive adenocarcinoma favor lung. Ms Salgado was referred to Dr Yanes for medical oncology consult. She denied any history of hemoptysis, denied any dysphagia but complaining of off-and-on headaches and blurred vision which is progressive no focal weakness. Also complaining of lower back pain and right posterior lower rib pain, not being controlled with hydrocodone, denies any history of trauma to her lower back or hip or chest. Patient is also complaining of weight loss, she used to weigh 176 now down to 150 pounds because of poor appetite. Patient is a chronic smoker smoked about 1 to 2 pack a day but now cutting down. Denies any jaundice denies any night sweats denies any fever chills denies any shortness of breath or palpitation Staging work-up including MRI scan of the brain which was done on July 25, 2020 showed innumerable metastatic lesions throughout the brain involving cerebellum and cerebrum, largest metastatic mass was hemorrhagic measuring 1.5 x 1.4 x 1.9 in the right parafalcine occipital lobe. With a large amount of surrounding edema but no midline shift. Ms Salgado was referred to radiation oncology and received 30 Gy between July 30, 2020 on August 10, 2020. 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 Keytruda/carboplatin/Taxol was restarted on November 06, 2020 Patient was treated with palliative radiation therapy to L4 and S1-2 and completed 3000 hours in 10 fraction on January 18, 2021, Her systemic therapy was held during palliative radiation therapy and patient resumed her chemo immunotherapy with Keytruda/carboplatin/Taxol on January 23, 2021, Follow-up CT PET scan done on March 30, 2021 showed improvement in the right upper lobe mass with atelectasis, residual activity in the right upper lobe nodule. No change in the right hilar, mediastinal, thoracic inlet and right cervical lymph nodes. Most osseous metastatic lesions are stable with mixed improvement and progression Her systemic therapy was changed to maintenance immunotherapy with Keytruda after dose of chemo immunotherapy with Keytruda/carboplatin/Taxol on April 03, 2021. Patient resumed 3 weekly maintenance immunotherapy with Keytruda alone on May 01, 2020. Patient presents today for follow-up. She was admitted to the hospital at [facility] for bilateral pneumonia and sepsis on 07/15/2021. She required intubation during her stay. She was discharged on 07/20/2021. She continues to have weakness and fatigue. She is unable to perform any household duties at this point. Her ECOG is 2. Her appetite has been fair. She denies fever, chills, night sweats. No sinus drainage or sore throat. She has some shortness of breath with exertion. She did quit smoking. She has an occasional cough. No chest pain. No GI or problems. She denies pain today. No headache or dizziness. Review Of Symptoms: See above. Past Medical History: History of ovarian cancer Hypertension Past Surgical History: Appendectomy Cholecystectomy Hysterectomy/bilateral salpingectomy-oophorectomy - At age 16, had uterine cancer Right shoulder replacement Covid vaccine #3 in 2020 Covid 19 vaccine #2 Pfizer in 2020 Covid 19 vaccine #3 Pfizer in 2020 Covid 19 vaccine #1 Pfizer in 2020 Colonoscopy in 2018 Allergies: Ibuprofen, Ketorolac Tromethamine, Levaquin, Morphine Sulfate, Nalbuphine HCl, Penicillins, Prochlorperazine Maleate, Ritalin, and SUMAtriptan Succinate. Medications: ALPRAZolam 1 Tablet (of 0.5 mg) Oral q 12 hours PRN Aspirin 81 1 Tablet (of 81 mg) Tablet, chewable Oral daily Cyclobenzaprine HCl 1 Tablet (of 10 mg) Oral q 8 hours PRN Dexamethasone 1 Tablet (of 4 mg) Oral daily Diclofenac Sodium 1 Tablet (of 75 mg) Tablet, enteric coated Oral b.i.d. HYDROcodone-Acetaminophen 1 Tablet (of 10-325 mg) Tablet Oral q 8 hours PRN hydrOXYzine HCl 1 Tablet (of 25 mg) Oral q 8 hours PRN Isosorbide Mononitrate ER 1 Tablet (of 60 mg) Tablet SR 24 HR Oral daily Metoprolol Succinate ER 1 Tablet (of 25 mg) Tablet SR 24 HR Oral daily Nitroglycerin (0.4 mg) Tablet, sublingual Sublingual Take as Directed OxyCONTIN (20 mg) Tablet ER 12 HR Abuse-Deterrent Oral b.i.d. Sertraline HCl 1 Tablet (of 50 mg) Oral daily Family History: Ms. Salgado's mother is alive. Ms. Salgado's father at age 74: Lung Cancer. Ms. Salgado has 1 brother who is alive. She has 2 sisters: 2 alive. Social History: Ms. Salgado is . Ms. Salgado no longer smokes but had smoked for 31 years. She has no history of drinking. She has indicated exposure to the following products: cigarettes. Physical Examination: Performed on Jul 31, 2021 11:00: Height - 66.00 in, Temperature - 99.4 F (HIGH), Pulse - 88 /min, Respiration - 20 /min, BP - 100/67 mm(hg), O2 Sat - 96 %, Pain - 0, and Fatigue - 4. Performance Status: 2 - Ambulatory/capable of all self-care, unable to perform any work activities. Up and about more than 50% of waking hours. (ECOG) Constitutional Alert, cooperative, oriented. Mood and affect appropriate. Appears close to chronological age. Well nourished. Well developed. Respiratory Lungs are clear to auscultation without rhonchi or wheezing. Cardiovascular Regular rate and rhythm of heart without murmurs, gallops or rubs. Abdomen Non-tender, non-distended, no masses, ascites or hepatosplenomegaly. Good bowel sounds. No guarding or rebound tenderness. Musculoskeletal No tenderness or swelling, normal range of motion. Generalized weakness Psychiatric Alert and oriented times three. Coherent speech. Verbalizes understanding of our discussions today. Laboratory: Test performed on Jul 31, 2021 10:37 Manual Diff Cancelled via OM: Entered in error Test performed on Jul 23, 2021 14:37 TSH 7.68 uU/mL Cr Clearance (Est) 145.57 mL/min Test performed on Jun 11, 2021 11:34 Neutrophils (Gran) 8.26 10^9/L Eosinophils 0.189 10^9/L Basophils 0.042 10^9/L Test performed on May 22, 2021 11:17 Manual Segs 76 % Manual Lymphocytes 14.4 % Manual Monocytes 6.5 % Manual Eosinophils 2 % Manual Basophils 0.6 % NRBCs 0 /100 WBC Test performed on Mar 13, 2021 09:00 Neutrophil % 91.3 % Eosinophil % 0.0 % Basophils % 0.3 % NRBC % 0 % CBC Slide Review Slide Review Perform SLIDE REVIEW AGREES WITH AUTOMATED RESULTS Impression: Metastatic adenocarcinoma per bronchoscopy done on July 06, 2020 shows right upper lobe endobronchial biopsy was positive for malignancy non-small cell carcinoma station 4R lymph node positive for non-small cell carcinoma as per pathology. Histology features suggestive of invasive adenocarcinoma of the lung. MRI scan of the brain done on July 25, 2020 shows innumerable metastatic lesions throughout the brain involving cerebellum and cerebrum, largest metastatic mass is hemorrhagic measuring 1.5 x 1.4 x 1.9 cm in the right parafalcine occipital lobe with a large amount of surrounding edema but no midline shift. Status post whole brain radiation therapy completed on August 10, 2020. CT PET scan was done on June 30, 2020 showing an FDG positive right middle lobe nodule, malignant satellite nodule in the medial right lung and right hilum, and extensive malignant mediastinal adenopathy with extension into the right and midline cervical node territories. There is multi focal osseous metastatic disease in the central sacrum and posterior element of T12 A follow-up CT PET scan was performed on March 30, 2021. Results are pending. If there are no signs of progression of disease chemotherapy will be discontinued and Keytruda 200 mg every 3 weeks will be continued. Plan: Patient presents today for follow-up. She was in the hospital for bilateral pneumonia and sepsis on 07/15/2021. Notes and discharge summary from [facility] in [place] were reviewed. She required intubation during her stay at the hospital she was on 07/20/2021. She is still recovering from her pneumonia. We will hold her Keytruda today and she will follow-up in 1 week with CBC and CMP. Signed By: Sujata Chavez N.P. <<Signature on File>>
--- NOTE | 2021-08-12 18:00 | ONC FU_ITS ---
Dr. Yanes follow up note Patient: Winsome Salgado Unit #: [id number]: [id number] Dicatated By: Lena Yanes M.D.Date of Visit:Aug 07, 2021 Onc Med Follow-up/Prog Note History of Present Illness: Ms Salgado is a 45-year-old female with a history of abnormal chest x-ray which showed a right middle lobe lung lesion. She was referred to pulmonology for evaluation and she underwent CT scan of the chest on June 25, 2020. The CT reported extensive right upper lobe atelectasis/consolidation concerning for postobstructive pneumonia. Given the presence of spiculated 2.1 cm nodule within the right upper lobe and extensive mediastinal and right hilar adenopathy which was worrisome for metastatic disease, Ms Salgado had. evaluation with PET/CT scan on June 30, 2020. The PET/CT From June 30, 2020 showed 2 x 1.8 cm right middle lobe nodule with SUV of 10.9, a 1.2 cm. Right hilar nodule has an SUV of 8. Other FDG positive nodules are obscured by right middle lobe infiltrate but are present in the right middle lobe. Malignant mediastinal adenopathy is present in the superior anterior mediastinum, right paratracheal, left paratracheal, subaortic, subcarinal, right paraesophageal territory. Multifocal osseous metastatic disease are present in the central sacrum, posterior element of T12. And index lesion in the central sacrum measured 1.3 cm with SUV of 7.6. In the right cervical level 4 territory, there was a 1.5 x 2.7 cm node has SUV of 11.4. An FDG positive cervical level 4 lymph node. On July 06, 2020 she underwent bronchoscopy and transbronchial biopsy from right upper lobe showed non-small cell lung cancer, right endobronchial biopsy was positive for non-small cell cancer and station 4R lymph node positive for non-small cell carcinoma as per pathology he was consistent with invasive adenocarcinoma favor lung. Ms Salgado was referred to Dr Yanes for medical oncology consult. She denied any history of hemoptysis, denied any dysphagia but complaining of off-and-on headaches and blurred vision which is progressive no focal weakness. Also complaining of lower back pain and right posterior lower rib pain, not being controlled with hydrocodone, denies any history of trauma to her lower back or hip or chest. Patient is also complaining of weight loss, she used to weigh 176 now down to 150 pounds because of poor appetite. Patient is a chronic smoker smoked about 1 to 2 pack a day but now cutting down. Denies any jaundice denies any night sweats denies any fever chills denies any shortness of breath or palpitation Staging work-up including MRI scan of the brain which was done on July 25, 2020 showed innumerable metastatic lesions throughout the brain involving cerebellum and cerebrum, largest metastatic mass was hemorrhagic measuring 1.5 x 1.4 x 1.9 in the right parafalcine occipital lobe. With a large amount of surrounding edema but no midline shift. Ms Salgado was referred to radiation oncology and received 30 Gy between July 30, 2020 on August 10, 2020. 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 Keytruda/carboplatin/Taxol was restarted on November 06, 2020 Patient was treated with palliative radiation therapy to L4 and S1-2 and completed 3000 hours in 10 fraction on January 18, 2021, Her systemic therapy was held during palliative radiation therapy and patient resumed her chemo immunotherapy with Keytruda/carboplatin/Taxol on January 23, 2021, Follow-up CT PET scan done on March 30, 2021 showed improvement in the right upper lobe mass with atelectasis, residual activity in the right upper lobe nodule. No change in the right hilar, mediastinal, thoracic inlet and right cervical lymph nodes. Most osseous metastatic lesions are stable with mixed improvement and progression Her systemic therapy was changed to maintenance immunotherapy with Keytruda after dose of chemo immunotherapy with Keytruda/carboplatin/Taxol on April 03, 2021. Patient resumed 3 weekly maintenance immunotherapy with Keytruda alone on May 01, 2020. She was admitted to the hospital at [facility] for bilateral pneumonia and sepsis on 07/15/2021. She required intubation during her stay. She was discharged on 07/20/2021.And Keytruda was put on hold since her last dose given on July 03, 2021 Came for follow-up, denies any specific complaint except generalized weakness and fatigue, now recovering from multifocal pneumonia, for which she required intubation during her recent hospitalization. Patient is due for her next dose of maintenance therapy with Keytruda but patient is requesting to postpone Keytruda till her uncle's , as per patient she has lost 2 family members in recent past and now somewhat emotional but not suicidal. Denies any skin rash, denies any wheezing denies any diarrhea or mucus in her stool, denies any jaundice denies any new bony pains. Now recovering from recent bout of multifocal pneumonia Medications: ALPRAZolam 1 Tablet (of 0.5 mg) Oral q 12 hours PRN, Aspirin 81 1 Tablet (of 81 mg) Tablet, chewable Oral daily, Cyclobenzaprine HCl 1 Tablet (of 10 mg) Oral q 8 hours PRN, Dexamethasone 1 Tablet (of 4 mg) Oral daily, Diclofenac Sodium 1 Tablet (of 75 mg) Tablet, enteric coated Oral b.i.d., HYDROcodone-Acetaminophen 1 Tablet (of 10-325 mg) Tablet Oral q 8 hours PRN, hydrOXYzine HCl 1 Tablet (of 25 mg) Oral q 8 hours PRN, Isosorbide Mononitrate ER 1 Tablet (of 60 mg) Tablet SR 24 HR Oral daily, Metoprolol Succinate ER 1 Tablet (of 25 mg) Tablet SR 24 HR Oral daily, Nitroglycerin (0.4 mg) Tablet, sublingual Sublingual Take as Directed, OxyCONTIN (20 mg) Tablet ER 12 HR Abuse-Deterrent Oral b.i.d., Sertraline HCl 1 Tablet (of 50 mg) Oral daily Allergies: Ibuprofen, Ketorolac Tromethamine, Levaquin, Morphine Sulfate, Nalbuphine HCl, Penicillins, Prochlorperazine Maleate, Ritalin, and SUMAtriptan Succinate. Review of Systems: Review of Systems is not available for this patient. Vital Signs: Performed on Aug 07, 2021 08:40 Height - 66.00 in Weight - 141.0 lbs (LOW) BSA - 1.72 sq.m BMI - 22.76 Temperature - 98.0 F (LOW) Pulse - 88 /min Respiration - 16 /min BP - 123/74 mm(hg) O2 Sat - 94 % (LOW) Pain - 0 Fatigue - 3 Performance Status: 1 - No physically strenuous activity, but ambulatory and able to carry out light or sedentary work (e.g. office work, light house work). (ECOG) Physical Examination: ENMT - No mouth sores, no thrush, no jaundice, Respiratory - Poor air entry otherwise clear, Cardiovascular - Regular rate and rhythm of heart, Abdomen - Soft, bowel sounds present, Extremities - No visible edema. Lab/Imaging: Test performed on Aug 06, 2021 08:54 TSH 8.95 uU/mL Test performed on Aug 06, 2021 08:50 Glucose 99 mg/dL BUN 5 mg/dL Creatinine 0.5 mg/dL Cr Clearance (Est) 141.95 mL/min Sodium 140 mmol/L Potassium 3.8 mmol/L Chloride 101 mmol/L CO2 26 mmol/L Calcium 8.8 mg/dL Protein, Total 6.0 g/dL Albumin 3.2 g/dL Globulin 2.8 g/dL Bilirubin, Total 0.2 mg/dL Alkaline Phosphatase 112 International Units/L AST (SGOT) 7 International Units/L ALT (SGPT) < 5 International Units/L WBC 9.5 10^9/L RBC 3.41 10^12/L HGB 10.4 g/dL HCT 32.7 % MCV 95.9 fl MCH 30.5 pg MCHC 31.8 g/dL RDW 13.7 % Platelet Count 568 10^9/L MPV 8.2 fL Neutrophils (Gran) 7.48 10^9/L Lymphocytes 0.9 10^9/L Monocytes 0.8 10^9/L Eosinophils 0.2 10^9/L Basophils 0 10^9/L Manual Lymphocytes 9.2 % Manual Monocytes 8.5 % Manual Eosinophils 2.4 % Manual Basophils 0.4 % NRBCs 0 /100 WBC Test performed on Jul 31, 2021 10:37 Manual Diff Cancelled via OM: Entered in error Test performed on May 22, 2021 11:17 Manual Segs 76 % Test performed on Mar 13, 2021 09:00 Neutrophil % 91.3 % Eosinophil % 0.0 % Basophils % 0.3 % NRBC % 0 % CBC Slide Review Slide Review Perform SLIDE REVIEW AGREES WITH AUTOMATED RESULTS Impression: Metastatic adenocarcinoma per bronchoscopy done on July 06, 2020 shows right upper lobe endobronchial biopsy was positive for malignancy non-small cell carcinoma station 4R lymph node positive for non-small cell carcinoma as per pathology. Histology features suggestive of invasive adenocarcinoma of the lung. MRI scan of the brain done on July 25, 2020 shows innumerable metastatic lesions throughout the brain involving cerebellum and cerebrum, largest metastatic mass is hemorrhagic measuring 1.5 x 1.4 x 1.9 cm in the right parafalcine occipital lobe with a large amount of surrounding edema but no midline shift. Status post whole brain radiation therapy completed on August 10, 2020. CT PET scan was done on June 30, 2020 showing an FDG positive right middle lobe nodule, malignant satellite nodule in the medial right lung and right hilum, and extensive malignant mediastinal adenopathy with extension into the right and midline cervical node territories. There is multi focal osseous metastatic disease in the central sacrum and posterior element of T12 A follow-up CT PET scan was performed on March 30, 2021. Results are pending. If there are no signs of progression of disease chemotherapy will be discontinued and Keytruda 200 mg every 3 weeks will be continued. Plan: Discussed with patient regarding her labs white blood count 9.5 hemoglobin 10.4 hematocrit 32.7 platelets 568,000 CMP within normal limits, TSH 8.95 Clinically, patient is doing reasonably well, now recovering from recent sickness with multifocal pneumonia, requiring intubation, her maintenance immunotherapy was put on hold since her last dose given on July 03, 2021 as she was admitted to hospital in mid June with pneumonia, as mentioned above. At patient's request, we will continue to hold her immunotherapy with Keytruda till her next visit in 2 weeks. Her lab work-up shows elevated TSH, which could be due to immunotherapy induced endocrinopathy, will consider starting her on Synthroid 50 mcg p.o. daily and repeat thyroid panel next week and adjust dose accordingly, otherwise patient return to clinic 2 weeks with CBC CMP and thyroid panel, if feel better may restart Keytruda. Signed By: Lena Yanes M.D. <<Signature on File>>
== END 2021-08-24 23:59 | disposition home or self-care (01) ==
LOC: ONCMED 06:44
PROVIDERS: PCP Family Medicine; Visit Provider Internal Medicine Hematology & Oncology
DX: C34.81 Malignant neoplasm of overlapping sites of right bronchus and lung (principal); C77.8 Secondary and unspecified malignant neoplasm of lymph nodes of multiple regions; C79.31 Secondary malignant neoplasm of brain; C79.51 Secondary malignant neoplasm of bone; J18.8 Other pneumonia, unspecified organism; E05.90 Thyrotoxicosis, unspecified without thyrotoxic crisis or storm; Z79.899 Other long term (current) drug therapy; Z92.3 Personal history of irradiation
CPT/HCPCS: 99214; 99215

== ENCOUNTER → 2021-08-20 08:45 | Outpatient (BNVA) | payer MEDICARE, MEDICAID, SELFPAY | PROVIDERS: PCP Family Medicine; Visit Provider Internal Medicine Hematology & Oncology | DX: C34.90 Malignant neoplasm of unspecified part of unspecified bronchus or lung (principal); R00.2 Palpitations | CPT/HCPCS: 84439; 84443 ==

== ENCOUNTER → 2021-09-18 09:07 | Outpatient (BNVA) | payer MEDICARE, MEDICAID, SELFPAY | PROVIDERS: PCP Family Medicine; Visit Provider Internal Medicine Hematology & Oncology | DX: C34.11 Malignant neoplasm of upper lobe, right bronchus or lung (principal); C79.31 Secondary malignant neoplasm of brain; C79.51 Secondary malignant neoplasm of bone | CPT/HCPCS: 80053; 85025 ==

== ENCOUNTER 2021-09-19 12:00 | Oncology outpatient (recurring) (ONCR) | payer MEDICARE, MEDICAID, SELFPAY ==
[2021-08-29 13:12] LABS: Basophils # 0.1 10^3/uL (0.0-0.1); Basophils % 0.3 %; Eosinophils # 0.2 10^3/uL (0.0-0.8); Eosinophils % 1.1 %; Hematocrit 37.3 % (37.0-47.0); Hemoglobin 11.8 g/dL (11.5-15.3); Lymphocytes # 0.9 10^3/uL (0.8-4.8); Lymphocytes % 5.4 %; Mean Corpuscular HGB Conc 31.6 g/dL (30.0-36.0); Mean Corpuscular Hemoglobin 29.6 pg (28.0-34.0); Mean Corpuscular Volume 93.5 fl (81-99); Mean Platelet Volume 7.6 fL (7.4-10.4); Monocytes # 0.6 10^3/uL (0.2-0.9); Monocytes % 3.3 %; Neutrophils # 14.79 10^3/uL (1.8-7.7); Neutrophils % 88.8 %; Nucleated Red Blood Cells % 0 %; Platelet Count 425 10^3/cmm (130-400); Red Blood Count 3.99 10^6/uL (4.1-5.3); Red Cell Distribution Width 15.6 % (12.1-15.1); White Blood Count 16.7 10^3/uL (4.0-10.0)
[2021-08-29] MEDS: alteplase 1 mg/mL SDV 2 mL 2 MG INTRACATH (13:18)
[2021-08-29] MEDS: pembrolizumab 200 MG in sodium chloride 0.9% 250 ML 516 MG IV (13:40)
[2021-08-29 13:44] LABS: Alanine Aminotransferase 10 U/L (0-33); Albumin Level 4.2 g/dL (3.5-5.2); Alkaline Phosphatase 74 IU/L (35-105); Anion Gap 14.5 (5-19); Aspartate Amino Transferase 12 U/L (0-32); Blood Urea Nitrogen 9 mg/dL (6-20); Calcium 9.2 mg/dL (8.5-10.5); Carbon Dioxide 28 mmol/L (22-29); Chloride 99 mmol/L (98-107); Globulin 2.5 g/dL (1.3-4.6); Glomerular Filtration Rate 107.6 mL/min (90-130); Glucose 113 mg/dL (65-115); Osmolality Calculated 283 mOsm/kg (285-295); Potassium 4.5 mmol/L (3.5-5.1); Sodium 137 mmol/L (136-145); Thyroid Stimulating Hormone 2.56 uIU/mL (0.27-4.20); Total Bilirubin 0.2 mg/dL (0.15-1.2); Total Protein 6.7 g/dL (6.6-8.7)
[2021-08-29 14:16] VITALS: BP 102/77; PULSE 66; RESP 22; TEMP 36.7; O2SAT 94
== END 2021-09-24 23:59 | disposition home or self-care (01) ==
PROVIDERS: PCP Family Medicine; Visit Provider Internal Medicine Hematology & Oncology
DX: C34.11 Malignant neoplasm of upper lobe, right bronchus or lung (principal); F17.210 Nicotine dependence, cigarettes, uncomplicated; C79.31 Secondary malignant neoplasm of brain; C79.51 Secondary malignant neoplasm of bone; C78.00 Secondary malignant neoplasm of unspecified lung; R94.6 Abnormal results of thyroid function studies
CPT/HCPCS: 36593; 80053; 84443; 85025; 96413; 99214; 99999; J2997; J7050; J9271

== ENCOUNTER 2021-11-07 10:25 | Oncology outpatient (recurring) (ONCR) | payer OTHER, MEDICAID, SELFPAY ==
[2021-11-07 12:04] VITALS: RESP 18; O2SAT 94
[2021-11-07] MEDS: HYDROmorphone 1 mg/mL INJ 1 mL 4 MG SUBCUT (12:04)
[2021-11-07 12:52] VITALS: BP 89/58; PULSE 103; RESP 16; TEMP 36.3; O2SAT 92
== END 2021-11-07 23:59 | disposition home or self-care (01) ==
PROVIDERS: PCP Family Medicine; Visit Provider Internal Medicine Hematology & Oncology
DX: C34.11 Malignant neoplasm of upper lobe, right bronchus or lung (principal); C79.51 Secondary malignant neoplasm of bone; C79.31 Secondary malignant neoplasm of brain; F17.210 Nicotine dependence, cigarettes, uncomplicated; R53.1 Weakness; R53.83 Other fatigue; M25.50 Pain in unspecified joint; M89.8X9 Other specified disorders of bone, unspecified site; R63.0 Anorexia
CPT/HCPCS: 96372; 99215; J1170